=== PATIENT | female | born 1960 | race Caucasian/White ===

== ENCOUNTER → 2017-11-07 19:27 | Outpatient (CLI) | payer OTHER, SELFPAY ==
[2017-11-11 11:09] LABS: HPV Reflexed? NOT INDICATED
== END ==
PROVIDERS: Visit Provider Obstetrics & Gynecology
DX: Z12.4 Encounter for screening for malignant neoplasm of cervix (principal)
CPT/HCPCS: 88175; G0145

== ENCOUNTER → 2017-11-24 08:49 | Outpatient (CLI) | payer OTHER, SELFPAY ==
[2017-11-24 10:36] LABS: Hemoglobin A1c 6.2 % (4.2-6.3)
[2017-11-24 10:43] LABS: Anion Gap 7 (5-15); BUN 14 mg/dL (7-18); Calcium,Total 9.3 mg/dL (8.5-10.1); Chloride 106 mmol/L (98-107); Cholesterol 186 mg/dL (200); Creatinine, Serum 0.74 mg/dL (0.55-1.02); EST Glomerular Filtration Rate 86 mL/min (>60); Est Glom Filt Rate - Afr Amer 104 mL/min (>60); Glucose 111 mg/dL (74-106); High Density Lipoprotein 60 mg/dL; Sodium Level 142 mmol/L (136-145); Thyroid Stim Hormone (TSH) 1.21 uIU/mL (0.358-3.74); Triglycerides 109 mg/dL; Very Low Density Lipoprotein 22 mg/dL (5-40)
[2017-11-25 10:20] LABS: Vitamin D,25 Hydroxy 20.8 ng/mL (29.95-100.01)
== END ==
PROVIDERS: Family Provider Family Medicine; PCP Family Medicine; Visit Provider Family Medicine
DX: Z00.00 Encounter for general adult medical examination without abnormal findings (principal); E11.9 Type 2 diabetes mellitus without complications
CPT/HCPCS: 36415; 80048; 80061; 82306; 83036; 84443

== ENCOUNTER → 2017-12-01 07:39 | Outpatient (CLI) | payer OTHER, SELFPAY ==
--- NOTE | 2017-12-01 07:41 | HPBI_ITS ---
MAMMOGRAPHY - BILATERAL SCREENING REASON FOR EXAM: Female, 57 years old. Routine annual screening examination. PERTINENT HISTORY: Non-contributory. TECHNIQUE: Digital bilateral breast ifeanyi (3D mammographic acquisition) in the CC and MLO projections. 2-D mediolateral oblique (MLO) and craniocaudad (CC) views of both breasts were obtained. CAD: Full Field Digital Mammography with Computer Added Detection was performed. COMPARISON: Comparison is made with prior study dated November 29, 2016 and November 24, 2015. FINDINGS: Breast Composition: There are scattered areas of fibroglandular density. There are no dominant masses or suspicious calcifications. No other significant abnormalities are identified. There has been no significant change since the prior study. HPBI/SCREENING MAMM (CAD), BILAT IMPRESSION: Stable bilateral screening mammogram. Yearly follow-up mammogram recommended. (A) ASSESSMENT CATEGORY: BIRADS Category 1: Negative. A letter regarding these results will be sent to the patient by the facility within 30 days. Approximately 10% of breast cancers are not detected by mammography. A normal mammogram should not delay biopsy of a clinically suspicious abnormality. [id number] Electronically Signed: Nick Vee MD at 9:20 EDT Tel [phone], Service support ,
== END ==
PROVIDERS: Family Provider Family Medicine; PCP Family Medicine; Visit Provider Obstetrics & Gynecology
DX: Z12.31 Encounter for screening mammogram for malignant neoplasm of breast (principal)
CPT/HCPCS: 77063; 77067

== ENCOUNTER → 2018-05-31 16:27 | Outpatient (CLI) | payer OTHER, SELFPAY ==
--- NOTE | 2018-05-31 16:30 | RAD_ITS ---
STUDY: X-RAY - LEFT KNEE REASON FOR EXAM: Female, 58 years old. Left knee pain TECHNIQUE: 3 view(s) of the knee. COMPARISON: May 25, 2013 FINDINGS: Normal visualized distal femur. Normal visualized proximal tibia and fibula. Normal proximal tibiofibular articulation. There is no demonstrated fracture. There is moderate degenerative arthrosis of the medial femorotibial compartment with moderate joint space narrowing. There is mild degenerative arthrosis of the lateral femorotibial compartment. There is moderate degenerative arthrosis of the patellofemoral articulation. The soft tissue structures are unremarkable. RAD/Knee 3 Views IMPRESSION: Degenerative arthrosis. Electronically Signed: Toni Nolen MD at 19:50 EDT , Service support ,
== END ==
PROVIDERS: Family Provider Family Medicine; PCP Family Medicine; Visit Provider Family Medicine
DX: M25.562 Pain in left knee (principal)
CPT/HCPCS: 73562

== ENCOUNTER → 2018-08-02 08:15 | Outpatient (CLI) | payer OTHER, SELFPAY ==
[2018-08-02 10:45] LABS: Anion Gap 10 (5-15); BUN 9 mg/dL (7-18); BUN/Creat Ratio 10.8 RATIO (10-20); Calcium,Total 9.4 mg/dL (8.5-10.1); Chloride 106 mmol/L (98-107); Cholesterol 174 mg/dL (200); Creatinine, Serum 0.83 mg/dL (0.55-1.02); EST Glomerular Filtration Rate 74 mL/min (>60); Est Glom Filt Rate - Afr Amer 90 mL/min (>60); Glucose 112 mg/dL (74-106); High Density Lipoprotein 58 mg/dL; Sodium Level 143 mmol/L (136-145); Triglycerides 120 mg/dL; Very Low Density Lipoprotein 24 mg/dL (5-40)
[2018-08-02 11:01] LABS: Vitamin D,25 Hydroxy 26.6 ng/mL (29.95-100.01)
== END ==
PROVIDERS: Family Provider Family Medicine; PCP Family Medicine; Visit Provider Family Medicine
DX: I10 Essential (primary) hypertension (principal); E55.9 Vitamin D deficiency, unspecified
CPT/HCPCS: 36415; 80048; 80061; 82306

== ENCOUNTER → 2018-10-11 09:19 | Outpatient (CLI) | payer OTHER, SELFPAY ==
[2018-10-11 10:53] LABS: Absolute Lymphocyte Count 1.22 X10^3/ul (0.83-4.51); Absolute Neutrophil Count 4.5 X10^3/uL (2.0-7.7); Basophil# 0.05 X10^3/uL; Basophil% 0.8 % (0-1); Eosinophil# 0.13 X10^3/uL; Hematocrit 43.1 % (37-47); Hemoglobin 14.6 g/dl (12.0-15.0); Lymphocyte # 1.22 X10^3/ul (4.0); Lymphocyte % 19.1 % (19-41); Mean Corp Hgb Conc 33.9 g/gl (32-36); Mean Corpuscular Hgb 30.9 pg (27.0-32.0); Mean Corpuscular Volume 91.3 fL (81-99); Mean Platelet Vol. 10.2 fl (6.2-12.0); Monocyte# 0.43 X10^3/uL; Monocyte% 6.7 % (0-10); Neutrophil # 4.54 X10^3/uL (2.7-7.7); Neutrophil % 71.2 % (47-70); Platelet Count 316 K/mm3 (150-450); RBC Distribution Width CV 13.5 % (11.6-14.6); RBC Distribution Width SD 44.5 fl (35.1-43.9); Red Blood Count 4.72 M/mm3 (4.2-5.4); White Blood Count 6.4 K/mm3 (4.4-11.0)
[2018-10-11 10:54] LABS: POSITIVE COUNT NO; POSITIVE DIFFERENTIAL NO; POSITIVE MORPHOLOGY NO
[2018-10-11 11:06] LABS: ALB/GLOB Ratio 1.2 RATIO (0.9-2.4); AST(SGOT) 22 U/L (15-37); Alanine Aminotransfer ALT/SGPT 40 U/L (13-56); Albumin, Serum 4.4 g/dL (3.2-5.0); Alkaline Phosphatase 98 U/L (45-117); Anion Gap 7 (5-15); BUN 13 mg/dL (7-18); BUN/Creat Ratio 16.4 RATIO (10-20); Calcium,Total 10.1 mg/dL (8.5-10.1); Chloride 104 mmol/L (98-107); Creatinine, Serum 0.79 mg/dL (0.55-1.02); EST Glomerular Filtration Rate 79 mL/min (>60); Est Glom Filt Rate - Afr Amer 95 mL/min (>60); Globulin 3.6 g/dL (2.2-4.2); Glucose 114 mg/dL (74-106); Potassium 4.4 mmol/L (3.5-5.1); Sodium Level 139 mmol/L (136-145); Thyroid Stim Hormone (TSH) 1.25 uIU/mL (0.358-3.74)
== END ==
PROVIDERS: Family Provider Family Medicine; PCP Family Medicine; Visit Provider Family Medicine
DX: R00.0 Tachycardia, unspecified (principal); R07.9 Chest pain, unspecified
CPT/HCPCS: 36415; 80053; 84443; 84484; 85025

== ENCOUNTER → 2018-10-18 06:33 | Outpatient (CLI) | payer OTHER, SELFPAY ==
--- NOTE | 2018-10-18 09:19 | STRESSREP ---
Stress Test Report Exercise myocardial perfusion stress test. 58-year-old lady with a history of chest pain. Medications amlodipine, lisinopril, metoprolol. Resting EKG demonstrates normal sinus rhythm with rate of 92 bpm normal intervals are noted resting blood pressure 168/98 mmHg. The patient exercised according to regular Rod protocol for total duration of 7 minutes. The maximum heart rate attained was 164 bpm which was 101% maximum predicted heart rate maximum workload was 8.4 metabolic equivalents. Patient experienced mild mid stents are pending. At rest there were no ST or T wave changes noted at peak exercise upsloping ST changes only were noted with normally the criteria for ischemia. No clinical angina was noted. Myocardial perfusion protocol. 14.8 mCi of technetium 99m sestamibi was injected at rest. The patient exercised for 7 minutes at peak exercise 44.7 mCi of technetium 99m sestamibi was injected stress images were obtained stress and rest images were reconstructed and compared in the short axis vertical long and horizontal long axis. Gated images were also obtained per Perfusion SPECT analysis: Review of the stress images demonstrate normal uptake of tracer noted in all areas of the myocardium. The resting images similarly demonstrate normal uptake of tracer noted in all areas of the myocardium. No areas of reversibility are noted suggest ischemia. Gated SPECT analysis: The gated ejection fraction is noted to be 79%. Conclusion: Normal exercise myocardial perfusion stress test at a moderate workload. Atypical chest pain noted. Hypertensive response to exercise noted. Preserved ejection fraction.
== END ==
PROVIDERS: Family Provider Family Medicine; PCP Family Medicine; Referring Provider Family Medicine; Visit Provider Family Medicine
DX: R07.9 Chest pain, unspecified (principal)
CPT/HCPCS: 78452; 93017; A9500; A4216

== ENCOUNTER → 2018-10-20 14:03 | Outpatient (CLI) | payer OTHER, SELFPAY ==
--- NOTE | 2018-10-20 14:06 | ECHOCS_ITS ---
Reason For Study: Chest Pain Procedure This was a 2D Doppler, Color Flow transthoracic echocardiogram. Exam performed in department. Left Ventricle Normal LV size. Left ventricular systolic function is normal. The estimated ejection fraction is 60 %. Stage 2 diastolic dysfunction. No regional wall motion abnormalities noted. Right Ventricle Normal RV size. Normal systolic function. Atria Normal left atrium. Normal right atrium. Mitral Valve Mild diffuse mitral valve thickening. Mild (1+) eccentric mitral valve insufficiency. Tricuspid Valve Normal tricuspid valve. Mild (1+) tricuspid valve insufficiency. Pulmonary artery systolic pressure is 33 mmHg. Aortic Valve The aortic valve is not well visualized. Pulmonic Valve Normal pulmonic valve. Great Vessels Normal aortic root. The pulmonary artery is normal size. Normal inferior vena cava. Pericardium/Pleural No pericardial effusion. Medication Definity0.2ml given slow IV push to enhance endocardial definition. MMode/2D Measurements & Calculations LVIDd: 4.6 cm IVSd: 1.5 cm Ao root diam: 2.5 cm LVIDs: 2.8 cm LVPWd: 1.0 cm RVDd: 4.2 cm FS: 38.7 % LAV(MOD-bp): 58.0 ml LVAd ap4: 36.0 cm2 SV(MOD-sp4): 86.2 ml LAV(MOD-bp) Indexed: 25.5 ml/m2 EDV(MOD-sp4): 124.8 ml LAV(MOD-sp2): 63.2 ml EDV(sp4-el): 131.0 ml LAV(MOD-sp4): 52.0 ml LVAs ap4: 17.7 cm2 ESV(MOD-sp4): 38.7 ml ESV(sp4-el): 40.0 ml EF(MOD-sp4): 69.0 % EF(sp4-el): 69.5 % SV(sp4-el): 91.0 ml LA A4 area: 19.0 cm2 LA dimension(2D): 3.8 cm RA A4 area: 14.1 cm2 Doppler Measurements & Calculations MV E max joshua: 99.7 cm/sec Lat Peak E' Joshua: 16.1 cm/sec Med Peak E' Joshua: 8.3 cm/sec MV A max joshua: 70.2 cm/sec E/E' lat: 6.2 E/E' med: 12.0 MV E/A: 1.4 Ao V2 max: 157.9 cm/sec LV V1 max: 135.9 cm/sec PA V2 max: 90.2 cm/sec Ao max P.0 mmHg LV V1 max P.4 mmHg Ao V2 mean: 110.1 cm/sec Ao mean P.4 mmHg Ao V2 VTI: 34.4 cm TR max joshua: 264.5 cm/sec TR max P.0 mmHg Interpretation Summary Normal LV size. Left ventricular systolic function is normal. The estimated ejection fraction is 60 %. Stage 2 diastolic dysfunction. Mild (1+) eccentric mitral valve insufficiency. Mild (1+) tricuspid valve insufficiency. Contrast injection was performed. Ordering Physician: Jeffery Godinez Referring Physician: Jeffery Godinez Performed By: Dorene Andino RDCS, RVT
== END ==
PROVIDERS: Family Provider Family Medicine; PCP Family Medicine; Referring Provider Family Medicine; Visit Provider Family Medicine
DX: R07.9 Chest pain, unspecified (principal)
CPT/HCPCS: 93306; Q9957; A4216; C8929

== ENCOUNTER → 2018-12-22 08:36 | Outpatient (CLI) | payer OTHER, SELFPAY ==
[2018-12-22 10:48] LABS: Anion Gap 6 (5-15); BUN 14 mg/dL (7-18); BUN/Creat Ratio 18.1 RATIO (10-20); Calcium,Total 9.7 mg/dL (8.5-10.1); Chloride 105 mmol/L (98-107); Cholesterol 188 mg/dL (200); Creatinine, Serum 0.78 mg/dL (0.55-1.02); EST Glomerular Filtration Rate 81 mL/min (>60); Est Glom Filt Rate - Afr Amer 98 mL/min (>60); Glucose 114 mg/dL (74-106); High Density Lipoprotein 57 mg/dL; Potassium 4.5 mmol/L (3.5-5.1); Sodium Level 141 mmol/L (136-145); Triglycerides 110 mg/dL; Very Low Density Lipoprotein 22 mg/dL (5-40)
== END ==
PROVIDERS: Family Provider Family Medicine; PCP Family Medicine; Referring Provider Family Medicine; Visit Provider Family Medicine
DX: I10 Essential (primary) hypertension (principal)
CPT/HCPCS: 36415; 80048; 80061

== ENCOUNTER → 2018-12-27 07:09 | Outpatient (CLI) | payer OTHER, SELFPAY ==
--- NOTE | 2018-12-27 07:11 | BI_ITS ---
MAMMOGRAPHY - BILATERAL SCREENING REASON FOR EXAM: Female, 58 years old. Routine annual screening examination. PERTINENT HISTORY: Non-contributory. TECHNIQUE: Digital bilateral breast ifeanyi (3D mammographic acquisition) in the CC and MLO projections. 2-D mediolateral oblique (MLO) and craniocaudad (CC) views of both breasts were obtained. CAD: Full Field Digital Mammography with Computer Added Detection was performed. COMPARISON: Comparison is made with prior study dated December 01, 2017 and November 29, 2016. FINDINGS: Breast Composition: There are scattered areas of fibroglandular density. There are no dominant masses or suspicious calcifications. No other significant abnormalities are identified. There has been no significant change since the prior study. BI/SCREENING MAMM (CAD), BILAT IMPRESSION: Stable bilateral screening mammogram. Yearly follow-up mammogram recommended. (A) ASSESSMENT CATEGORY: BIRADS Category 1: Negative. A letter regarding these results will be sent to the patient by the facility within 30 days. Approximately 10% of breast cancers are not detected by mammography. A normal mammogram should not delay biopsy of a clinically suspicious abnormality. [id number] Electronically Signed: Nick Vee, at 9:27 EDT , Service support ,
== END ==
PROVIDERS: Family Provider Family Medicine; PCP Family Medicine; Referring Provider Obstetrics & Gynecology; Visit Provider Obstetrics & Gynecology
DX: Z12.31 Encounter for screening mammogram for malignant neoplasm of breast (principal)
CPT/HCPCS: 77063; 77067

== ENCOUNTER → 2019-01-16 17:37 | Outpatient (CLI) | payer OTHER, SELFPAY | PROVIDERS: Family Provider Family Medicine; PCP Family Medicine; Referring Provider Nurse Practitioner Adult Health; Visit Provider Nurse Practitioner Adult Health | DX: R30.0 Dysuria (principal) | CPT/HCPCS: 87086; 87088; 87186 ==

== ENCOUNTER → 2019-01-23 16:59 | Outpatient (CLI) | payer OTHER, SELFPAY ==
--- NOTE | 2019-01-23 17:05 | US_ITS ---
STUDY: RENAL ULTRASOUND - COMPLETE REASON FOR EXAM: Female, 58 years old. Urinary tract infection TECHNIQUE: Ultrasound evaluation of the kidneys was performed with real-time and static lang-scale imaging. COMPARISON: None. FINDINGS: RIGHT KIDNEY: Normal location of the right kidney, which is normal in size. The right kidney measures 11.6 cm. There is a normal cortex of the right kidney. The renal cortex measures 1.2 cm. There is no right renal mass or cyst. There are no right renal calculi. There is no right hydronephrosis. DISTAL RIGHT URETER: There is non-visualization of the distal right ureter. There is no demonstrated right ureterovesical junction calculus. There is a visualized right ureteral jet. LEFT KIDNEY: Normal location of the left kidney, which is normal in size. The left kidney measures 12.8 cm. There is a normal cortex of the left kidney. The renal cortex measures 1.3 cm. There is no left renal mass or cyst. There are no left renal calculi. There is mild hydronephrosis of the left kidney. DISTAL LEFT URETER: There is non-visualization of the distal left ureter. There is no demonstrated left ureterovesical junction calculus. There is a visualized left ureteral jet. BLADDER: The distended urinary bladder has a volume of 399 ml. The empty urinary bladder has a volume of 17 ml. There is a normal wall thickness of the distended urinary bladder. There is no demonstrated mass within the urinary bladder. There are no demonstrated bladder calculi. US/Kidney and Bladder IMPRESSION: Mild left hydronephrosis. Small postvoid residual in the bladder. Electronically Signed: Toni Nolen MD at 19:49 EDT , Service support ,
== END ==
PROVIDERS: Family Provider Family Medicine; PCP Family Medicine; Referring Provider Urology; Visit Provider Urology
DX: N39.0 Urinary tract infection, site not specified (principal)
CPT/HCPCS: 76770

== ENCOUNTER → 2019-02-08 17:04 | Outpatient (CLI) | payer OTHER, SELFPAY ==
--- NOTE | 2019-02-08 17:06 | CT_ITS ---
STUDY: CT ABDOMEN AND PELVIS WITH AND WITHOUT CONTRAST REASON FOR EXAM: Female, 58 years old. Hydronephrosis. RADIATION DOSAGE (If Supplied By Facility): CTDIvol = ( 23.02 ) mGy, DLP = ( 2053.60 ) mGycm TECHNIQUE: Transaxial images were obtained from the dome of the diaphragm to the symphysis pubis without oral contrast. 100ML IV Isovue 300 was administered. Sagittal and coronal images were reconstructed. Individualized dose optimization techniques were used for this CT. COMPARISON: Renal ultrasound, January 23, 2019. FINDINGS: The visualized lung bases are unremarkable. The visualized portions of the heart are within normal limits. There is hepatomegaly with diffuse hepatic enlargement. There is a large laminated gallstone within an otherwise normal gallbladder. No biliary ductal dilatation. Normal spleen. Normal pancreas. Normal bilateral adrenal glands. Normal right kidney. Normal left kidney. Normal visualized bilateral ureters. Stomach is nondistended but grossly normal. Normal small intestine. Normal colon. The appendix is visualized and appears normal. Normal abdominal aorta. Normal inferior vena cava. Normal retroperitoneum. Normal urinary bladder. Normal uterus. There is no adnexal mass. There is no pelvic lymphadenopathy. No free air or free fluid is seen within the peritoneal cavity. There is a small umbilical hernia of omental fat. Bowel naqvi otherwise unremarkable. There are diffuse degenerative changes of the visualized lumbar spine. CT/CT Abd/Pelvis W/WO Contrast IMPRESSION: 1. No evidence of renal, ureteral or urinary bladder abnormality. 2. Mild hepatomegaly. 3. Gallstone without acute cholecystitis. 4. Mild degenerative changes of the lumbar spine. Electronically Signed: Forest Romero DO at 17:57 EDT Tel [phone], Service support ,
== END ==
PROVIDERS: Family Provider Family Medicine; PCP Family Medicine; Referring Provider Urology; Visit Provider Urology
DX: N13.30 Unspecified hydronephrosis (principal)
CPT/HCPCS: 74178; Q9967

== ENCOUNTER 2019-04-09 07:00 | Day surgery (SDC) | payer OTHER, SELFPAY ==
[2019-04-09] VITALS (8 sets, daily range): BP systolic 95–115; BP diastolic 65–74; PULSE 58–87; RESP 16–18; TEMP 36.1–36.6; O2SAT 94–99; BMI 40.1
--- NOTE | 2019-04-09 | COLBX_PTH ---
PATIENT: FALGUNI OSBORNE LOC: EN U#:[id number] AGE/SX: 59/F ROOM: RE04/09/[address]: Dr. Cassie Yuan MD : 1960 BED: DIS: 04/09/2019 SPEC #: [id number] RECD: 04/09/19 13:35 STATUS: ALYSON RETalita #: [id number] JOE: 04/09/19 00:[address]: Cassie Yuan DEPT: SURGICAL PATHOLOGY RECD BY: Juanito Waldron ENTERED: 04/09/19 13:35 SP TYPE: COLON BX OTHR DR: Dr. Jeffery Godinez MD Tissues: Descending colon Procedures: Surgery Specimen Level IV HEADER OPERATION: Colonoscopy - open access (MAC) PRE-OP DIAGNOSIS: Screening TISSUE SUBMITTED: Descending colon biopsy MICROSCOPIC DIAGNOSIS Descending colon, biopsy: Fragments of tubular adenoma. AM:karely 04/10/19 MICROSCOPIC DESCRIPTION Slides are reviewed. GROSS DESCRIPTION Received in fixative is one container labeled with the patient's name and designated descending colon biopsy. The specimen consists of two irregular fragments of light epstein soft tissue that in aggregate measure 0.6 x 0.4 x 0.1 cm. The specimen is totally submitted in one cassette. / SJ:rios 04/09/19 TC: 5 CPT: 39186
--- NOTE | 2019-04-09 07:38 | HP.PCM_ITS ---
History of Present Illness Date of Admission: 04/09/19 The patient is a 59 year old F presents for screening colonoscopy. Patient denies having previous colonoscopy. Denies any family history of colon cancer. Patient has bowel movements about every other day is plan to start taking a stool softener is unsure if she takes a fiber in her diet. Patient denies any blood in her stool. Denies any abdominal pain/nausea/vomiting. Patient does have reflux which is controlled with medication. Past Medical/Surgical History - Planned Operation Planned Operative Procedure/s: cscope open access Date of Operative Procedure: 04/09/19 Permit Signed: No S.O.S: No Is This Patient Having a Total Joint: No - Previous Hospitalizations/Surgeries HX Hospitalizations: No HX of Surgeries: mole removed from arm. wisdom teeth Any Problems With Anesthesia: No You/Your Family Experience Fever (Hyperthermia) With Anes: No Cholinesterase deficiency: No - Cardiovascular Hx Chest Pain within Last 2 months: No Hx of Irregular Heartbeat and/or Afib: No Hx Hypertension: Yes - controlled with meds Hx Internal Defibrillator: No Hx Pacemaker: No Hx Cardiac Catheterization: No Hx Cardiac Surgery/Stents/Etc.: No Hx Stress Test: Yes - 2019 and echo 2019 HX Edema: Yes - ankles Hx Pain in Legs when Walking/Leg Cramps: Yes - knee pain - Respiratory Chronic Cough: No HX of Shortness of Breath: No Hoarseness: No Hx Chronic Obstructive Pulmonary Disease (COPD): No Hx Asthma: No Hx Emphysema: No Hx Sleep Apnea: No Hx Oxygen Use at Home: No Hx Respiratory Tract Infection/Cold (presently): No Do You Snore Loudly (louder than talking or can be heard): Yes Do You Often Feel Tired/ Fatigued/ Sleepy Dring Daytime?: No Has Anyone Observed You Stop Breathing During Sleep?: No Result (for STOP score): Positive Hx Smoking: No Smoking Status: Never smoker - Gastrointestinal Hx Gastroesophageal Reflux: Yes Controlled With Meds: Yes Hx Gastrointestinal Disorders: No Hx Gastrointestinal Bleed: No Hx Ulcer: No Hx Hiatal Hernia: No Difficulty Chewing/Swallowing: No Recent Onset of Swallowing Problems: No Special diet followed at home: No Hx Unplanned Weight Loss of 20#: No HX Unplanned Weight Gain of 20#: No - Neurological Hx Seizures: No HX Syncope/Blackout Spells/Unconsciousness: No Hx CVA/Stroke: No Hx Transient Ischemic Attacks (TIA): No Hx Multiple Sclerosis: No Hx Parkinson's Disease: No Hx Head/Neck Injury: No Hx Headaches: No Hx Back Injury/Pain: No Recent Onset of Speech Difficulty: No Restless Legs: No Does patient have nerve stimulator: No Patient instructed to have device shut off: No Rep notified?: No - Blood Disorder Hx Leukemia: No Bleeding Tendencies: No Hx Deep Vein Thrombosis: No Hx High Cholesterol: No Blood Transmitted Disease: No Hx Hepatitis: No Hx Cirrhosis: No Hx Anemia: No Hx Blood Disorders: No - Reproduction : No Is Patient Lactating: No Hx Hysterectomy: No Hx Tubal Ligation: No Are You Post Menopause: Yes - Genitourinary Hx Renal Disease: No - being treated for uti currently - Musculoskeletal Hx Arthritis: Yes Hx Rheumatoid Arthritis: No Hx Gout: No Recent Onset of an Orthopedic Problem: No - Endocrine Hx Diabetes: No - borderline. Thyroid Disease: No Hx Steroid Therapy: No - Psycho/Social Hx Substance Use: No Hx Alcohol Use: Yes - social Hx Anxiety: No Hx Depression: No Mental Illness: No Hx Dementia: No - Miscellaneous Hx Cancer: No Recent Exposure to Contagious Disease: No Active MRSA: No Hx of C-Diff: No Any Loose Teeth: No Allergies Penicillins Allergy (Verified 04/05/19 10:43) Unknown sulfamethoxazole [From Bactrim] Allergy (Verified 04/05/19 10:43) muscle pain trimethoprim [From Bactrim] Allergy (Verified 04/05/19 10:43) muscle pain - Discharge Is Pt Admitted From a [facility], or a Long-Term: No Who Could Help: family After D/C, Where Do you Plan to Go: Return Home - Physical Exam General: Alert, Oriented x3, Cooperative, No apparent distress HEENT: Atraumatic Cardiovascular: Regular rate Abdomen: Soft, Non Tender, Non-Distended, Obese, - - No peritoneal signs Extremities: No clubbing, No cyanosis, No edema Neurological: Cranial nerves II-XII grossly intact Psych/Mental Status: Normal Affect Vital Signs Temp Pulse Resp BP Pulse Ox 97.8 F 87 16 115/74 99 04/09/19 07:17 04/09/19 07:17 04/09/19 07:17 04/09/19 07:17 04/09/19 07:17 Oxygen Delivery Method Room Air Weight: 256 lb 9.889 oz Body Mass Index (BMI) 40.1 Assessment/Plan 59-year-old female for screening for colon cancer Surgery Risks - Colonoscopy I discussed with the patient the risks of the procedure: Yes Risks Include but are not Limited To: Risks include but are not limited to: Bleeding, perforation requiring further surgery, inability to complete colonoscopy requiring barium enema. Patient had no further questions this time
--- NOTE | 2019-04-09 08:30 | OP.ENDO_ITS ---
04/09/2019 Jeffery Godinez MD [address] [id number] Re : Colonoscopy procedure for Wandy Padilla Dear Dr. Godinez This procedure was performed on Tuesday, April 09, 2019. My impressions and recommendations are as follows: Impressions : - Diverticulosis in the sigmoid colon. - One less than 5 mm polyp in the descending colon, removed with a cold biopsy forceps. Resected and retrieved. - The examination was otherwise normal on direct and retroflexion views. Recommendations : - Discharge patient to home. - High fiber diet. - Continue present medications. - Await pathology results. - Repeat colonoscopy in 3 - 5 years for surveillance based on pathology results. My findings are described in the full procedure note, which is enclosed. If I can be of further assistance, please feel free to contact me at Doctor phone number(s): , Work: . Sincerely, MD Cassie Parsons MD 04/09/2019 8:30:06 AM This report has been signed electronically.
== END 2019-04-09 09:14 | disposition home or self-care (01) ==
LOC: EN 07:04 → AC 07:04
PROVIDERS: Family Provider Family Medicine; PCP Family Medicine; Referring Provider Family Medicine; Visit Provider Surgery
PROC: 0DJD8ZZ Inspection of Lower Intestinal Tract, Via Natural or Artificial Opening Endoscopic (ICD-10-PCS; CPT 45378; principal; 2019-04-09 07:55)
DX: Z12.11 Encounter for screening for malignant neoplasm of colon (principal); D12.4 Benign neoplasm of descending colon; K57.30 Diverticulosis of large intestine without perforation or abscess without bleeding; N39.0 Urinary tract infection, site not specified; I10 Essential (primary) hypertension; K21.9 Gastro-esophageal reflux disease without esophagitis; Z79.82 Long term (current) use of aspirin; Z79.899 Other long term (current) drug therapy; Z78.0 Asymptomatic menopausal state; Z88.0 Allergy status to penicillin; Z88.2 Allergy status to sulfonamides; Z88.1 Allergy status to other antibiotic agents
CPT/HCPCS: 45380; 88305; J7120; J2405

== ENCOUNTER → 2019-06-25 09:45 | Outpatient (CLI) | payer OTHER, SELFPAY ==
[2019-04-09 07:17] VITALS: BMI 40.1
--- NOTE | 2019-06-25 09:47 | CDU_ITS ---
Reason For Study: Bruit Rt. Velocities/BP Lt. Velocities/BP Prox CCA 90.4/18.6 cm/sec. Prox CCA 91.3/20 cm/sec. Mid CCA 96.9/22.6 cm/sec. Mid CCA 79/20 cm/sec. Dist CCA 70.8/17.3 cm/sec. Dist CCA 92.5/32.3 cm/sec. Prox ICA 45.4/13.5 cm/sec. Prox ICA 45.6/14.5 cm/sec. Mid ICA 67.3/22.3 cm/sec. Mid ICA 82.7/30 cm/sec. Dist ICA 68.5/24.5 cm/sec. Dist ICA 79.4/32.2 cm/sec. Rt. ICA/CCA = 0.8. Lt. ICA/CCA = 0.9. Prox ECA 62.9/9.1 cm/sec. Prox ECA 79/10.2 cm/sec. Rt. Vert. 47/16.2 cm/sec. Lt. Vert. 50.9/14.6 cm/sec. Right Extracranial There is intimal thickening but no significant atherosclerotic plaque noted in the right common carotid artery. There is intimal thickening but no significant atherosclerotic plaque noted in the right internal carotid artery. There is no significant atherosclerotic plaque noted in the right external carotid artery. Antegrade flow is noted in the right vertebral artery. Left Extracranial There is intimal thickening but no significant atherosclerotic plaque noted in the left common carotid artery. Nonvascularized structure noted in the thyroid tissue measuring about 0.76 x 0.92 x 1.67 cm. There is intimal thickening but no significant atherosclerotic plaque noted in the left internal carotid artery. There is no significant atherosclerotic plaque noted in the left external carotid artery. Antegrade flow is noted in the left vertebral artery. Procedure Carotid Duplex [id number]. Exam performed in department. Interpretation Summary No significant atherosclerotic plaque or stenosis noted in the internal carotid arteries bilaterally. Flow within the vertebral arteries is antegrade bilaterally. A non-vascular structure is noted in the left thyroid lobe, measuring 0.76 cm x 0.92 cm x 1.67 cm. Clinical correlation is advised. Ordering Physician: Nayana Avalos Referring Physician: Jeffery Godinez Performed By: Perlita Sousa RVT
== END ==
PROVIDERS: Family Provider Family Medicine; PCP Family Medicine; Referring Provider Nurse Practitioner Adult Health; Visit Provider Nurse Practitioner Adult Health
DX: R09.89 Other specified symptoms and signs involving the circulatory and respiratory systems (principal)
CPT/HCPCS: 93880

== ENCOUNTER → 2019-07-13 12:32 | Outpatient (CLI) | payer OTHER, SELFPAY ==
[2019-04-09 07:17] VITALS: BMI 40.1
--- NOTE | 2019-07-13 12:33 | US_ITS ---
STUDY: THYROID ULTRASOUND REASON FOR EXAM: Female, 59 years old. Thyroid nodule incidentally detected on carotid duplex ultrasound TECHNIQUE: Ultrasound evaluation of the thyroid was performed with real-time and static byrnes-scale imaging. COMPARISON: None. FINDINGS: RIGHT LOBE: The right lobe of the thyroid gland measures 4.2 x 1.9 x 1.7 cm. There is a homogeneous echotexture. There are no demonstrated solid, cystic or complex lesions. LEFT LOBE: The left lobe of the thyroid gland measures 4.6 x 1.7 x 1.6 cm. There is a homogeneous echotexture. There are 2 hypoechoic nodules of the left thyroid lobe abutting one another with coarse calcifications. The nodules measure 9 x 11 x 8 and 5 x 5 x 4 mm, respectively. Smooth margins but with mild vascular flow. ISTHMUS: The isthmus measures 3 mm. The regional lymph nodes are normal. US/Thyroid IMPRESSION: 1. Hypoechoic nodules of the left thyroid lobe (TiRads 4). FNA recommended. Electronically Signed: Abhishek Avina MD ([place]) at 16:40 EST , Service support ,
== END ==
PROVIDERS: Family Provider Family Medicine; PCP Family Medicine; Referring Provider Family Medicine; Visit Provider Family Medicine
DX: E04.1 Nontoxic single thyroid nodule (principal)
CPT/HCPCS: 76536

== ENCOUNTER → 2019-07-20 09:21 | Outpatient (CLI) | payer OTHER, SELFPAY ==
[2019-07-20 08:38] VITALS: BMI 42.0
[2019-07-20 10:49] LABS: Anion Gap 9 (5-15); BUN 15 mg/dL (7-18); BUN/Creat Ratio 20.2 RATIO (10-20); Calcium,Total 10.3 mg/dL (8.5-10.1); Chloride 103 mmol/L (98-107); Creatinine, Serum 0.74 mg/dL (0.55-1.02); EST Glomerular Filtration Rate 85 mL/min (>60); Est Glom Filt Rate - Afr Amer 103 mL/min (>60); Glucose 101 mg/dL (74-106); Sodium Level 141 mmol/L (136-145)
== END ==
PROVIDERS: Family Provider Family Medicine; PCP Family Medicine; Referring Provider Family Medicine; Visit Provider Family Medicine
DX: R55 Syncope and collapse (principal)
CPT/HCPCS: 36415; 80048

== ENCOUNTER → 2019-08-02 11:12 | Outpatient (CLI) | payer OTHER, SELFPAY ==
--- NOTE | 2019-08-02 07:30 | ASPS_PTH ---
PATIENT: FALGUNI [facility]BORNE [facility] U[facility][id number] AGE/SX: 65/F ROOM: RE08/02/[address]: Dr. Bruno Aaron MD : 1960 BED: DIS: SPEC #: [id number] RECD: 08/02/19 11:10 STATUS: ALYSON PREMA #: [id number] JOE: 08/02/19 07:[address]: Bruno Aaron DEPT: CYTOLOGY RECD BY: Dru Traore ENTERED: 08/02/19 11:20 SP TYPE: ASPIRATION OTHR DR: Dr. Jeffery Godinez MD Tissues: Thyroid gland, NOS Procedures: Special Stain Group II Cytology Other HEADER OPERATION: Left thyroid FNA PRE-OP DIAGNOSIS: Left thyroid nodules TISSUE SUBMITTED: Left thyroid slides x8 DIAGNOSIS CYTOLOGY Left thyroid nodule, FNA (smears): Consistent with benign follicular nodule. Adequate for evaluation. See comment. KAYLIE:rios 08/03/19 COMMENT Correlation with clinical, radiologic findings and appropriate follow up are necessary. CYTOLOGY STUDY Slides are reviewed. CYTOLOGY GROSS Received are eight smears labeled with the patient's name and designated per the requisition as left thyroid. Submitted for staining. / rios 08/02/19 TC:5 CPT: 58901
[2019-08-02 07:33] VITALS: BMI 42.0
== END ==
PROVIDERS: Family Provider Family Medicine; PCP Family Medicine; Referring Provider Surgery; Visit Provider Surgery
DX: E04.1 Nontoxic single thyroid nodule (principal)
CPT/HCPCS: 88161; 88313

== ENCOUNTER → 2019-09-03 08:24 | Outpatient (CLI) | payer OTHER, SELFPAY ==
[2019-08-02 07:33] VITALS: BMI 42.0
--- NOTE | 2019-09-03 08:40 | RAD_ITS ---
STUDY: X-RAY - RIGHT KNEE REASON FOR EXAM: Female, 59 years old. CHRONIC PAIN, NKI TECHNIQUE: 4 view(s) of the knee. COMPARISON: None. FINDINGS: Serpiginous sclerotic lesion within the distal femoral shaft consistent with the old bone infarct or enchondroma. Diffuse osteopenia with mild osteophyte of the distal femur and proximal tibia. Otherwise normal visualized proximal tibia and fibula. There is arthrosis of the proximal tibiofibular articulation. There is no demonstrated fracture. There is mild degenerative arthrosis of the medial femorotibial compartment. There is minimal degenerative arthrosis of the lateral femorotibial compartment. There is mild degenerative arthrosis of the patellofemoral articulation. Mild joint effusion. The soft tissue structures are unremarkable. RAD/Knee 4 or More Views IMPRESSION: Degenerative disease as described above. 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 No acute fracture or subluxation. Electronically Signed: Catie Carrillo MD at 0:53 EST , Service support ,
== END ==
LOC: MTRAD 08:27 → HPRAD 08:29
PROVIDERS: Family Provider Family Medicine; PCP Family Medicine; Referring Provider Family Medicine; Visit Provider Family Medicine
DX: M25.569 Pain in unspecified knee (principal)
CPT/HCPCS: 73564

== ENCOUNTER → 2019-09-15 11:19 | Outpatient (CLI) | payer OTHER, SELFPAY ==
[2019-08-02 07:33] VITALS: BMI 42.0
[2019-09-15 11:54] LABS: Anion Gap 5 (5-15); BUN 16 mg/dL (7-18); BUN/Creat Ratio 18.3 RATIO (10-20); Chloride 102 mmol/L (98-107); Creatinine, Serum 0.88 mg/dL (0.55-1.02); EST Glomerular Filtration Rate 70 mL/min (>60); Est Glom Filt Rate - Afr Amer 85 mL/min (>60); Glucose 109 mg/dL (74-106); Potassium 4.1 mmol/L (3.5-5.1); Sodium Level 137 mmol/L (136-145)
== END ==
PROVIDERS: Family Provider Family Medicine; PCP Family Medicine; Referring Provider Family Medicine; Visit Provider Family Medicine
DX: I10 Essential (primary) hypertension (principal)
CPT/HCPCS: 36415; 80048

== ENCOUNTER → 2020-01-29 07:36 | Outpatient (CLI) | payer OTHER, SELFPAY ==
[2019-08-02 07:33] VITALS: BMI 42.0
--- NOTE | 2020-01-29 07:38 | BI_ITS ---
MAMMOGRAPHY - BILATERAL SCREENING REASON FOR EXAM: Female, 59 years old. Routine annual screening examination. PERTINENT HISTORY: Non-contributory. TECHNIQUE: Digital bilateral breast joseph (3D mammographic acquisition) in the CC and MLO projections. 2-D mediolateral oblique (MLO) and craniocaudad (CC) views of both breasts were obtained. CAD: Full Field Digital Mammography with Computer Added Detection was performed. COMPARISON: Comparison is made with prior examination dated December 27, 2018 and December 01, 2017. FINDINGS: Breast Composition: There are scattered areas of fibroglandular density. There are no dominant masses or suspicious calcifications. No other significant abnormalities are identified. There has been no significant change since the prior study. BI/SCREEN MAMM (CAD) W/JOSEPH BILAT IMPRESSION: Stable bilateral screening mammogram. Yearly follow-up mammogram recommended. (A) ASSESSMENT CATEGORY: BIRADS Category 1: Negative. A letter regarding these results will be sent to the patient by the facility within 30 days. Approximately 10% of breast cancers are not detected by mammography. A normal mammogram should not delay biopsy of a clinically suspicious abnormality. [id number] Electronically Signed: Nick Vee, at 8:46 EDT , Service support ,
== END ==
PROVIDERS: PCP Family Medicine; Referring Provider Obstetrics & Gynecology; Visit Provider Obstetrics & Gynecology
DX: Z12.31 Encounter for screening mammogram for malignant neoplasm of breast (principal)
CPT/HCPCS: 77063; 77067

== ENCOUNTER → 2020-02-08 08:28 | Outpatient (CLI) | payer OTHER, SELFPAY ==
[2019-08-02 07:33] VITALS: BMI 42.0
[2020-02-08 13:04] LABS: Anion Gap 8 (5-15); BUN 12 mg/dL (7-18); BUN/Creat Ratio 14.2 RATIO (10-20); Calcium,Total 9.8 mg/dL (8.5-10.1); Chloride 103 mmol/L (98-107); Cholesterol 193 mg/dL (200); Creatinine, Serum 0.84 mg/dL (0.55-1.02); EST Glomerular Filtration Rate 73 mL/min (>60); Est Glom Filt Rate - Afr Amer 88 mL/min (>60); Glucose 116 mg/dL (74-106); High Density Lipoprotein 54 mg/dL; Sodium Level 140 mmol/L (136-145); Triglycerides 114 mg/dL; Very Low Density Lipoprotein 23 mg/dL (5-40)
== END ==
PROVIDERS: PCP Family Medicine; Referring Provider Family Medicine; Visit Provider Family Medicine
DX: Z00.00 Encounter for general adult medical examination without abnormal findings (principal)
CPT/HCPCS: 36415; 80048; 80061

== ENCOUNTER → 2020-07-17 07:39 | Outpatient (CLI) | payer OTHER, SELFPAY ==
[2019-08-02 07:33] VITALS: BMI 42.0
--- NOTE | 2020-07-17 07:40 | US_ITS ---
STUDY: THYROID ULTRASOUND REASON FOR EXAM: Female, 60 years old. Non toxic multinodular goiter TECHNIQUE: Ultrasound evaluation of the thyroid was performed with real-time and static byrnes-scale imaging. COMPARISON: Comparison is made with prior study dated 07/13/2019. FINDINGS: RIGHT LOBE: The right lobe of the thyroid gland measures 4.5 cm x 1.5 cm x 1.3 cm. There is a homogeneous echotexture. There is a 2 mm x 2 mm x 1 mm cyst in the mid pole of the right lobe. LEFT LOBE: The left lobe of the thyroid gland measures 5 cm x 1.6 cm x 1.6 cm. There is a homogeneous echotexture. Once again, there are 2 hypoechoic solid nodules in the left lobe of the thyroid. The largest measures 1.3 cm x 1.1 cm x 0.9 cm. This is essentially unchanged. Coarse calcification is seen within the smaller nodule. ISTHMUS: The isthmus measures 2.4 mm. The regional lymph nodes are normal. US/Thyroid IMPRESSION: Stable thyroid ultrasound. Electronically Signed: Nick Vee, at 13:16 EST , Service support ,
== END ==
PROVIDERS: PCP Family Medicine; Referring Provider Surgery; Visit Provider Surgery
DX: E04.2 Nontoxic multinodular goiter (principal)
CPT/HCPCS: 76536

== ENCOUNTER → 2020-08-05 08:30 | Outpatient (CLI) | payer OTHER, SELFPAY ==
[2019-08-02 07:33] VITALS: BMI 42.0
[2020-08-05 10:33] LABS: Anion Gap 5 (5-15); BUN 15 mg/dL (7-18); BUN/Creat Ratio 15.7 RATIO (10-20); Calcium,Total 9.6 mg/dL (8.5-10.1); Chloride 104 mmol/L (98-107); Cholesterol 194 mg/dL (200); Creatinine, Serum 0.96 mg/dL (0.55-1.02); EST Glomerular Filtration Rate 63 mL/min (>60); Est Glom Filt Rate - Afr Amer 76 mL/min (>60); Glucose 124 mg/dL (74-106); High Density Lipoprotein 53 mg/dL; Potassium 4.1 mmol/L (3.5-5.1); Sodium Level 138 mmol/L (136-145); Triglycerides 118 mg/dL; Very Low Density Lipoprotein 24 mg/dL (5-40)
== END ==
PROVIDERS: PCP Family Medicine; Referring Provider Family Medicine; Visit Provider Family Medicine
DX: I10 Essential (primary) hypertension (principal)
CPT/HCPCS: 36415; 80048; 80061

== ENCOUNTER → 2021-01-30 07:06 | Outpatient (CLI) | payer OTHER, SELFPAY ==
[2019-08-02 07:33] VITALS: BMI 42.0
--- NOTE | 2021-01-30 07:24 | BI_ITS ---
MAMMOGRAPHY - BILATERAL SCREENING 3-D TOMOSYNTHESIS REASON FOR EXAM: Female, 60 years old. Routine screening PERTINENT HISTORY: No significant family history. TECHNIQUE: 2-D mammograms and 3-D Tomosynthesis of the breast (s) were performed. CAD was performed. COMPARISON: 01/29/2020 FINDINGS: The breast composition is almost entirely fat. Scattered benign calcifications are seen. No dense spiculated masses or suspicious microcalcifications are identified. No architectural distortion is identified. There is no skin thickening or retraction. There has been no significant change since the prior study. BI/SCRN MAMM (CAD)W/JOSEPH BILAT IMPRESSION: No mammographic signs of malignancy. Routine yearly mammograms recommended. ASSESSMENT CATEGORY: BIRADS Category 1: Negative. A letter regarding these results will be sent to the patient by the facility within 30 days. FOLLOW UP RECOMMENDATION: Yearly follow up mammogram recommended. (A) Approximately 10% of breast cancers are not detected by mammography. A normal mammogram should not delay biopsy of a clinically suspicious abnormality. Electronically Signed: Osorio De La Cruz MD at 8:54 EDT , Service support ,
[2021-01-30 10:43] LABS: Anion Gap 6 (5-15); BUN 17 mg/dL (7-18); BUN/Creat Ratio 19.1 RATIO (10-20); Calcium,Total 9.7 mg/dL (8.5-10.1); Chloride 103 mmol/L (98-107); Cholesterol 192 mg/dL (200); Creatinine, Serum 0.89 mg/dL (0.55-1.02); EST Glomerular Filtration Rate 68 mL/min (>60); Est Glom Filt Rate - Afr Amer 83 mL/min (>60); Glucose 130 mg/dL (74-106); High Density Lipoprotein 56 mg/dL; Sodium Level 137 mmol/L (136-145); Triglycerides 112 mg/dL; Very Low Density Lipoprotein 22 mg/dL (5-40)
== END ==
PROVIDERS: PCP Family Medicine; Referring Provider Student in an Organized Health Care Education/Training Program; Visit Provider Student in an Organized Health Care Education/Training Program
DX: Z12.31 Encounter for screening mammogram for malignant neoplasm of breast (principal); Z00.00 Encounter for general adult medical examination without abnormal findings
CPT/HCPCS: 36415; 77063; 77067; 80048; 80061

== ENCOUNTER → 2021-08-05 08:33 | Outpatient (CLI) | payer OTHER, SELFPAY ==
[2021-08-05 10:41] LABS: Anion Gap 9 (5-15); BUN 12 mg/dL (7-18); BUN/Creat Ratio 13.3 RATIO (10-20); Calcium,Total 9.8 mg/dL (8.5-10.1); Chloride 100 mmol/L (98-107); Cholesterol 163 mg/dL (200); EST Glomerular Filtration Rate 67 mL/min (>60); Est Glom Filt Rate - Afr Amer 82 mL/min (>60); Glucose 128 mg/dL (74-106); High Density Lipoprotein 53 mg/dL; Potassium 4.1 mmol/L (3.5-5.1); Sodium Level 139 mmol/L (136-145); Triglycerides 97 mg/dL; Very Low Density Lipoprotein 19 mg/dL (5-40)
== END ==
PROVIDERS: PCP Family Medicine; Referring Provider Family Medicine; Visit Provider Family Medicine
DX: I10 Essential (primary) hypertension (principal)
CPT/HCPCS: 36415; 80048; 80061

== ENCOUNTER → 2021-08-20 | Outpatient (CLI) | payer OTHER, SELFPAY | END | disposition home or self-care (01) | PROVIDERS: PCP Family Medicine; Referring Provider Family Medicine; Visit Provider Family Medicine | DX: Z20.822 Contact with and (suspected) exposure to COVID-19 (principal) | CPT/HCPCS: 87635; U0005; U0003 ==

== ENCOUNTER → 2022-02-05 | Outpatient (CLI) | payer OTHER, SELFPAY ==
[2022-02-05 10:44] LABS: Anion Gap 7 (5-15); BUN 14 mg/dL (7-18); BUN/Creat Ratio 17.3 RATIO (10-20); Calcium,Total 9.3 mg/dL (8.5-10.1); Chloride 102 mmol/L (98-107); Cholesterol 176 mg/dL (200); Creatinine, Serum 0.81 mg/dL (0.55-1.02); EST Glomerular Filtration Rate 76 mL/min (>60); Est Glom Filt Rate - Afr Amer 92 mL/min (>60); Glucose 133 mg/dL (74-106); High Density Lipoprotein 52 mg/dL; Potassium 4.1 mmol/L (3.5-5.1); Sodium Level 138 mmol/L (136-145); Triglycerides 122 mg/dL; Very Low Density Lipoprotein 24 mg/dL (5-40)
[2022-02-05 10:51] LABS: Microalbumin:Creatinine Ratio 10.2 mg/g CRE (<30 mg/g CRE)
== END | disposition home or self-care (01) ==
LOC: MTLAB 07:59
PROVIDERS: PCP Family Medicine; Referring Provider Family Medicine; Visit Provider Family Medicine
DX: E11.9 Type 2 diabetes mellitus without complications (principal)
CPT/HCPCS: 36415; 80048; 80061; 82043; 82570

== ENCOUNTER → 2022-03-11 | Outpatient (CLI) | payer OTHER, SELFPAY ==
--- NOTE | 2022-03-11 09:47 | BI_ITS ---
MAMMOGRAPHY - BILATERAL SCREENING REASON FOR EXAM: Female, 62 years old. Routine annual screening examination. PERTINENT HISTORY: Non-contributory. TECHNIQUE: Digital bilateral breast joseph (3D mammographic acquisition) in the CC and MLO projections. 2-D mediolateral oblique (MLO) and craniocaudad (CC) views of both breasts were obtained. CAD: Full Field Digital Mammography with Computer Added Detection was performed. COMPARISON: Comparison is made with prior study of 01/30/2021 and 01/29/2020. FINDINGS: Breast Composition: The breasts are almost entirely fatty. There are no dominant masses or suspicious calcifications. No other significant abnormalities are identified. There has been no significant change since the prior study. BI/SCRN MAMM (CAD)W/JOSEPH BILAT IMPRESSION: Stable bilateral screening mammogram. Yearly follow-up mammogram recommended. (A) ASSESSMENT CATEGORY: BIRADS Category 1: Negative. A letter regarding these results will be sent to the patient by the facility within 30 days. Approximately 10% of breast cancers are not detected by mammography. A normal mammogram should not delay biopsy of a clinically suspicious abnormality. [id number] Electronically Signed: Nick Vee MD at 11:00 EDT ,
--- NOTE | 2022-03-11 09:53 | BD_ITS ---
STUDY: DUAL ENERGY X-RAY ABSORPTIOMETRY / DXA REASON FOR EXAM: Female, 62 years old. M85.89. Patient is postmenopausal. TECHNIQUE: Bone Mineral Density (BMD) measurements of lumbar spine and bilateral hips were obtained. COMPARISON: Comparison is made with prior study dated 11/11/2011. FINDINGS: Lumbar Spine (L1-L4): g/cm2 (0.958) / T-score (-0.8) / Z-score (0.8) Findings are suggestive of normal bone density with a low fracture risk. Left Femur Total: g/cm2 (0.881) / T-score (-0.5) / Z-score (0.6) Left Femoral Neck: g/cm2 (0.768) / T-score (-0.7) / Z-score (0.7) Right Femur Total: g/cm2 (0.902) / T-score (-0.3) / Z-score (0.8) Right Femoral Neck: g/cm2 (0.811) / T-score (-0.3) / Z-score (1.1) The T-Scores on the most recent prior examination were: Lumbar Spine (L1-L4): There has been worsening of bone density since the previous examination. Left Femur Total: which represents a worsening of 7.9%. Right Femur Total: which represents a worsening of 2.6%. BD/Dexa Bone Density Study IMPRESSION: The patient is considered normal as outlined below according to World [place] Organization (WHO) criteria with a low fracture risk. There has been worsening of bone density since the previous examination. Reference Information: The T-score is the number of standard deviations above or below the standard which is normal for young adults at their peak bone mineral density. The World Health Organization (WHO) interprets the T-scores as follows: Above -1 Normal bone density Between -1 and -2.5 Osteopenia Equal to / or below -2.5 Osteoporosis As a practical clinical guideline, osteopenia may be graded as follows: Mild -1 through -1.5 Moderate -1.6 through -2.0 Severe -2.1 through -2.4 The Z-score is the number of standard deviations above or below age-matched controls. A Z-score of less than -1.5 would be considered abnormal. References: 1. NIH Osteoporosis and Related Bone Diseases www osteo.org 2. International Society for Clinical Densitometry www iscd.org 3. National Osteoporosis Foundation www nof.org Electronically Signed: Nick Vee MD at 15:31 EDT ,
== END | disposition home or self-care (01) ==
LOC: OPBI 09:44
PROVIDERS: PCP Family Medicine; Visit Provider Student in an Organized Health Care Education/Training Program
DX: Z12.31 Encounter for screening mammogram for malignant neoplasm of breast (principal); M85.80 Other specified disorders of bone density and structure, unspecified site; Z78.0 Asymptomatic menopausal state
CPT/HCPCS: 77063; 77067; 77080

== ENCOUNTER → 2022-09-27 | Outpatient (CLI) | payer OTHER, SELFPAY | END | disposition home or self-care (01) | PROVIDERS: PCP Family Medicine; Visit Provider Urology | DX: N39.0 Urinary tract infection, site not specified (principal) | CPT/HCPCS: 87086; 87088 ==

== ENCOUNTER → 2022-11-01 | Outpatient (CLI) | payer OTHER, SELFPAY ==
[2022-11-01 13:06] LABS: Anion Gap 8 (5-15); BUN 12 mg/dL (7-18); BUN/Creat Ratio 14.1 RATIO (10-20); Calcium,Total 9.8 mg/dL (8.5-10.1); Chloride 103 mmol/L (98-107); Cholesterol 182 mg/dL (200); Creatinine, Serum 0.85 mg/dL (0.55-1.02); EST Glomerular Filtration Rate 71 mL/min (>60); Est Glom Filt Rate - Afr Amer 86 mL/min (>60); Glucose 120 mg/dL (74-106); High Density Lipoprotein 59 mg/dL; Potassium 3.8 mmol/L (3.5-5.1); Sodium Level 139 mmol/L (136-145); Triglycerides 125 mg/dL; Very Low Density Lipoprotein 25 mg/dL (5-40)
[2022-11-02 09:50] LABS: Hemoglobin A1c 6.8 % (3.8-5.6)
== END | disposition home or self-care (01) ==
LOC: MFPLAB 11:11
PROVIDERS: PCP Family Medicine; Visit Provider Family Medicine
DX: E11.9 Type 2 diabetes mellitus without complications (principal)
CPT/HCPCS: 36415; 80048; 80061; 83036

== ENCOUNTER → 2023-03-22 | Outpatient (CLI) | payer OTHER, SELFPAY ==
--- NOTE | 2023-03-22 07:30 | BI_ITS ---
MAMMOGRAPHY - BILATERAL SCREENING REASON FOR EXAM: Female, 63 years old. Routine annual screening examination. PERTINENT HISTORY: Non-contributory. TECHNIQUE: Digital bilateral breast joseph (3D mammographic acquisition) in the CC and MLO projections. 2-D mediolateral oblique (MLO) and craniocaudad (CC) views of both breasts were obtained. CAD: Full Field Digital Mammography with Computer Added Detection was performed. COMPARISON: Comparison is made with prior study dated March 11, 2022 and January 30, 2021 FINDINGS: Breast Composition: The breasts are almost entirely fatty. There are no dominant masses or suspicious calcifications. No other significant abnormalities are identified. There has been no significant change since the prior study. BI/SCRN MAMM (CAD)W/JOSEPH BILAT IMPRESSION: Stable bilateral screening mammogram. Yearly follow-up mammogram recommended. (A) ASSESSMENT CATEGORY: BIRADS Category 1: Negative. A letter regarding these results will be sent to the patient by the facility within 30 days. Approximately 10% of breast cancers are not detected by mammography. A normal mammogram should not delay biopsy of a clinically suspicious abnormality. [id number] Electronically Signed: Nick Vee MD at 9:14 EDT ,
== END | disposition home or self-care (01) ==
LOC: OPBI 07:28
PROVIDERS: PCP Family Medicine; Referring Provider Student in an Organized Health Care Education/Training Program; Visit Provider Student in an Organized Health Care Education/Training Program
DX: Z12.31 Encounter for screening mammogram for malignant neoplasm of breast (principal)
CPT/HCPCS: 77063; 77067

== ENCOUNTER → 2023-05-06 | Outpatient (CLI) | payer OTHER, SELFPAY ==
[2023-05-06 10:34] LABS: Anion Gap 6 (5-15); BUN 13 mg/dL (7-18); BUN/Creat Ratio 13.6 RATIO (10-20); Calcium,Total 9.6 mg/dL (8.5-10.1); Chloride 102 mmol/L (98-107); Cholesterol 197 mg/dL (200); Creatinine, Serum 0.95 mg/dL (0.55-1.02); EST Glomerular Filtration Rate 63 mL/min (>60); Est Glom Filt Rate - Afr Amer 76 mL/min (>60); Glucose 152 mg/dL (74-106); High Density Lipoprotein 53 mg/dL; Potassium 3.8 mmol/L (3.5-5.1); Sodium Level 138 mmol/L (136-145); Triglycerides 168 mg/dL; Very Low Density Lipoprotein 34 mg/dL (5-40)
== END | disposition home or self-care (01) ==
LOC: MTLAB 07:40
PROVIDERS: PCP Family Medicine; Referring Provider Family Medicine; Visit Provider Family Medicine
DX: E11.9 Type 2 diabetes mellitus without complications (principal)
CPT/HCPCS: 36415; 80048; 80061

== ENCOUNTER 2023-07-21 17:15 | Emergency (ER) | payer OTHER, SELFPAY ==
[2023-07-21 17:15] VITALS: BP 184/89; PULSE 105; RESP 20; TEMP 36.2; O2SAT 100; BMI 41.7
[2023-07-21 17:38] LABS: Bacteria 0 SEEN /hpf (None Seen); Mucous, Urine 0 SEEN /hpf (<or=2+)
[2023-07-21 17:45] LABS: Color, Urine Yellow (Yellow); Glucose, Dipstick Normal (Normal); Ketone-Dipstick 15 mg/dl (Negative); Leukocyte Esterase-Dipstick Negative /ul (Negative); Nitrite-Dipstick Negative (Negative); Occult Blood-Urine 25 /ul (Negative); Protein-Dipstick 30 mg/dl (Negative); Urine Bilirubin Dipstick Negative (Negative); Urine Clarity Clear (Clear); Urine Urobilinogen Normal (Normal)
[2023-07-21 17:53] LABS: Red Blood Cells-Urine 0-5 SEEN /hpf (0-5); Squamous Epithelial Cells - UA 0-5 SEEN /hpf (5-10); White Blood Cells 0-5 SEEN /hpf (0-5)
[2023-07-21 17:54] LABS: Absolute Lymphocyte Count 1.56 X10^3/uL (0.83-4.51); Absolute Neutrophil Count 11.2 X10^3/uL (2.0-7.7); Basophil# 0.04 X10^3/uL; Basophil% 0.3 % (0-1); Eosinophil# 0.02 X10^3/uL; Eosinophils% 0.1 % (0-5); Hematocrit 40.2 % (37-47); Hemoglobin 13.3 g/dL (12.0-15.0); Lymphocyte # 1.56 X10^3/ul (0.83-4.51); Lymphocyte % 11.3 % (19-41); Mean Corp Hgb Conc 33.1 g/dL (32-36); Mean Corpuscular Hgb 30.5 pg (27.0-32.0); Mean Corpuscular Volume 92.2 fL (81-99); Mean Platelet Vol. 10.4 fl (6.2-12.0); Monocyte# 0.94 X10^3/uL; Monocyte% 6.8 % (0-10); NRBC Flagged by Analyzer 0 % (0-5); Neutrophil # 11.24 X10^3/uL (2.7-7.7); Neutrophil % 81.1 % (47-70); Platelet Count 288 K/mm3 (150-450); RBC Distribution Width CV 13.1 % (11.6-14.6); RBC Distribution Width SD 44.3 fl (35.1-43.9); Red Blood Count 4.36 M/mm3 (4.2-5.4); White Blood Count 13.9 K/mm3 (4.4-11.0)
[2023-07-21 18:09] LABS: AST(SGOT) 13 U/L (15-37); Alanine Aminotransfer ALT/SGPT 30 U/L (13-56); Alkaline Phosphatase 85 U/L (45-117); Anion Gap 6 (5-15); BUN 10 mg/dL (7-18); BUN/Creat Ratio 11.3 RATIO (10-20); Calcium,Total 9.5 mg/dL (8.5-10.1); Chloride 98 mmol/L (98-107); Creatinine, Serum 0.88 mg/dL (0.55-1.02); EST Glomerular Filtration Rate 69 mL/min (>60); Est Glom Filt Rate - Afr Amer 83 mL/min (>60); Estimated Creatinine Clearance 62.81 ml/min; Globulin 4.2 g/dL (2.2-4.2); Glucose 130 mg/dL (74-106); Potassium 3.3 mmol/L (3.5-5.1); Protein, Total 8.2 g/dL (6.4-8.2); Sodium Level 133 mmol/L (136-145)
--- NOTE | 2023-07-21 19:25 | CT_ITS ---
STUDY: CT ABDOMEN AND PELVIS WITH CONTRAST REASON FOR EXAM: Female, 63 years old. lower abdominal pain RADIATION DOSAGE (If Supplied By Facility): CTDIvol = ( 16.85 ) mGy, DLP = ( 1193.88 ) mGycm TECHNIQUE: Transaxial images were obtained from the dome of the diaphragm to the symphysis pubis without oral contrast. IV 100mL Isovue-370 was administered. Sagittal and coronal images were reconstructed. Individualized dose optimization techniques were used for this CT. COMPARISON: February 08, 2019 FINDINGS: The visualized lung bases are unremarkable. The visualized portions of the heart are within normal limits. Nonspecific fatty infiltrated liver without mass or bile duct dilatation. Large calcified gallstone noted without evidence for acute cholecystitis. Normal spleen. Normal pancreas. Normal bilateral adrenal glands. Mild multilobulated appearance to the kidneys bilaterally. No evidence for obstruction or mass . Normal visualized stomach. Normal small intestine. Diffuse diverticular disease of the descending and sigmoid colon. There is subtle stranding in the fat which may be consistent with acute diverticulitis. No evidence for peridiverticular abscess. No evidence for acute appendicitis. Normal abdominal aorta. Normal inferior vena cava. Normal retroperitoneum. Normal urinary bladder. Normal abdominal wall. Normal osseous structures. CT/Abdomen/Pelvis W IV Cont ONLY IMPRESSION: Diverticular disease of the descending and sigmoid colon in association with mild acute diverticulitis of the sigmoid colon but no evidence for peridiverticular abscess. Gallstones without definitive evidence for acute cholecystitis Electronically Signed: Mikey Moreau MD at 20:33 EST Reading Location ID and State: [facility] / [place] Tel , Service support ,
[2023-07-21 20:25] LABS: Lactic Acid 1.1 mmol/L (0.4-1.9)
--- NOTE | 2023-07-21 21:12 | ED.VIS.GI ---
HPI HPI - GI History of Present Illness Chief Complaint: Abd Pain Informant: patient Narrative Narrative: Patient is a 63-year-old female with history of ongoing constipation, hypertension, diabetes mellitus and prior colonoscopy that did show diverticulosis but no personal history of diverticulitis. She is presenting with 2 days worsening lower abdominal pressure. She states yesterday morning she thought maybe it was gas however it is continued to be more persistent and worsen. She notes she has not a bowel movement 2 days which is unusual for her even with her chronic constipation. She been passing gas but less than normal. She states her symptoms are worse when she is standing or bending her abdomen. She also notes she does not have dysuria but when she pushes to urinate it increases the pain in her abdomen. Notes that she does have a known gallstone as well as hernia of her umbilical area that does hurt more when she pushes on it. Denies any history of any abdominal surgeries. Denies any nausea or vomiting. No fever or chills. No other complaints at this time. [facility] Medical History Acid reflux High cholesterol HTN (hypertension) Multiple thyroid nodules Recurrent UTI Home Medications ascorbic acid (vitamin C) 1,000 mg tablet 1,000 mg PO DAILY 04/05/19 [History Last Taken Unknown] aspirin 81 mg tablet,delayed release 81 mg PO DAILY 04/05/19 [History Last Taken 04/02/19] calcium carbonate-vitamin D3 600 mg-125 unit tablet 1 ea PO DAILY 04/05/19 [History Last Taken Unknown] cephalexin 250 mg capsule 250 mg PO QHS 04/05/19 [History Last Taken Unknown] cholecalciferol (vitamin D3) 25 mcg (1,000 unit) tablet 1,000 unit PO BID 04/05/19 [History Last Taken Unknown] metoprolol tartrate 50 mg tablet 50 mg PO BID 04/05/19 [History Last Taken Unknown] multivitamin with minerals 1 ea PO DAILY 04/05/19 [History Last Taken Unknown] omeprazole 20 mg capsule,delayed release 20 mg PO DAILY 04/05/19 [History Last Taken 04/09/19] lisinopril 20 mg-hydrochlorothiazide 25 mg tablet 1 tab PO DAILY 07/20/19 [History Last Taken Unknown] sennosides 8.6 mg tablet (senna) 8.6 mg PO BID 07/20/19 [History Last Taken Unknown] cefdinir 300 mg capsule 300 mg PO BID #14 caps 07/21/23 [Rx Last Taken Unknown] metronidazole 500 mg tablet 500 mg PO Q8H 7 days #21 tabs 07/21/23 [Rx Last Taken Unknown] Allergy/AdvReac Type Severity Reaction Status Date / Time Penicillins Allergy Unknown Verified 08/02/19 07:32 sulfamethoxazole Allergy muscle pain Verified 08/02/19 07:32 [From Bactrim] trimethoprim [From Bactrim] Allergy muscle pain Verified 08/02/19 07:32 Family History Mother Hypertension Diabetes Sister Hypertension Social History Smoking Status: Never smoker alcohol intake: current alcohol intake frequency: holidays/special occasions only ROS ROS ED Constitutional Constitutional ED: Denies chills or fever(s) Respiratory/Chest Respiratory/Chest: Denies cough Gastrointestinal Gastrointestinal: Reports abdominal pain and constipation; Denies nausea or vomiting Musculoskeletal Musculoskeletal: Denies arthralgias Integumentary Denies rash Neurologic Neurologic: Denies headache(s), paresthesias or weakness Hematologic/Lymphatic Hematologic/Lymphatic: Denies easy bleeding or easy bruising EXAM Physical Exam Const Vital Signs: 07/21/23 17:15 Temperature 97.2 F L Temperature Source Temporal Pulse Rate 105 H Respiratory Rate 20 H Blood Pressure 184/89 H Blood Pressure Mean 120 Pulse Ox 100 Oxygen Delivery Method Room Air Positive well nourished and well developed General Appearance ED: well developed and NAD HEENT Reports moist mucous membranes normocephalic and atraumatic Neck supple Resp normal respiratory effort and clear to auscultation bilaterally Cardio regular rate, regular rhythm and no murmurs GI non-tender and non-distended GI Narrative: No mass or hernia appreciated. Patient points to her lower abdomen as the area of pain however it is not tender on direct palpation Palpation: Negative for guarding or rigid Back/Spine no CVA tenderness Extremity General Extremety ED: Negative for edema General Extremity: Negative for edema Neuro Sensorium / Orientation: alert, oriented to person, oriented to place and oriented to time Motor Exam: Negative for general weakness Psych mental status grossly normal and thought process normal Skin no wounds Rashes: no rashes MDM MDM MDM Narrative Medical decision making narrative: Patient is evaluated for 2 days of constipation lower abdominal pain. Differential includes urinary tract infection, diverticulitis, small bowel obstruction and less likely cholecystitis, cystitis or renal colic. Patient is mildly tachycardic and hypertensive upon arrival however she declines pain medication. She is resting pretty comfortably at rest in the ER. CBC does show leukocytosis with a white blood cell count of 13.9. CMP unremarkable. Lactate is added on because of her leukocytosis and tachycardia however it is normal. Normal kidney function. Urinalysis is not consistent with UTI. CT of the abdomen pelvis shows diverticular disease of the descending and sigmoid colon and associated with mild acute diverticulitis of the sigmoid colon but no evidence of diverticular abscess or perforation. I think patient is a good candidate for outpatient antibiotic treatment. She is again offered Toradol or something for pain but declines. She is given first dose of Omnicef and Flagyl in the emergency room. Declines any prescription for pain medicine at discharge. Given return precautions. Counseled on the risk of antibiotic failure and need for IV antibiotics if she worsens. Encouraged to alternate ibuprofen and Tylenol as needed for discomfort. Encouraged to adhere to a liquid diet for the next 24 hours or until she is feeling better. She verbalizes agreement understanding with this plan. Discharged home in stable condition. Hypertensive in the ER and I does take her home blood pressure medicine while in the emergency room. Lab Data Labs: Laboratory Results - last 24 hr 07/21/23 07/21/23 19:50 Unknown WBC 13.9 H RBC 4.36 Hgb 13.3 Hct 40.2 MCV 92.2 MCH 30.5 MCHC 33.1 RDW Std Deviation 44.3 H RDW Coeff of [place] 13.1 Plt Count 288 MPV 10.4 Immature Gran % (Auto) 0.400 Neut % (Auto) 81.1 H Lymph % (Auto) 11.3 L [place] % (Auto) 6.8 Eos % (Auto) 0.1 Baso % (Auto) 0.3 Absolute Neuts (auto) 11.2 H Absolute Lymphs (auto) 1.56 Nucleated RBC % 0 Sodium 133 L Potassium 3.3 L Chloride 98 Carbon Dioxide 29.0 Anion Gap 6 BUN 10 Creatinine 0.88 Estim Creat Clear Calc 62.81 Est GFR (MDRD) Af Amer 83 Est GFR (MDRD) Non-Af 69 BUN/Creatinine Ratio 11.3 Glucose 130 H Lactic Acid 1.1 Calcium 9.5 Total Bilirubin 1.10 H AST 13 L ALT 30 Alkaline Phosphatase 85 Total Protein 8.2 Albumin 4.0 Globulin 4.2 Albumin/Globulin Ratio 1.0 Urine Color Yellow Urine Clarity Clear Urine pH 6.0 Ur Specific [place] 1.010 Urine Protein 30 H Urine Glucose (UA) Normal Urine Ketones 15 H Urine Occult Blood 25 H Urine Nitrite Negative Urine Bilirubin Negative Urine Urobilinogen Normal Ur Leukocyte Esterase Negative Urine RBC 0-5 SEEN Urine WBC 0-5 SEEN Ur Squamous Epith Cells 0-5 SEEN Urine Bacteria 0 SEEN Urine Mucus 0 SEEN Radiography Diagnostic Testing: Clinical Impression(s) from Imaging Studies Abdomen/Pelvis CT 07/21/23 19:25 IMPRESSION: Diverticular disease of the descending and sigmoid colon in association with mild acute diverticulitis of the sigmoid colon but no evidence for peridiverticular abscess. Gallstones without definitive evidence for acute cholecystitis Electronically Signed: Mikey Moreau MD at 20:33 EST Reading Location ID and State: [address] [place] [address] Tel , Service support , Discharge Plan Triage Chief Complaint: Abd Pain ED Provider: Aby Jeff Dx/Rx/DC Orders Clinical Impression: Diverticulitis large intestine w/o perforation or abscess w/o bleeding Instructions: ED Diverticulitis Prescriptions: New metronidazole 500 mg tablet 500 mg PO Q8H 7 Days Qty: 21 0RF cefdinir 300 mg capsule 300 mg PO BID Qty: 14 0RF No Action sennosides [senna] 8.6 mg tablet 8.6 mg PO BID lisinopril-hydrochlorothiazide 20-25 mg tablet 1 tab PO DAILY ascorbic acid (vitamin C) 1,000 MG tablet 1,000 mg PO DAILY cephalexin 250 MG capsule 250 mg PO QHS aspirin 81 MG tablet,delayed release (DR/EC) 81 mg PO DAILY metoprolol tartrate 50 MG tablet 50 mg PO BID omeprazole 20 MG capsule 20 mg PO DAILY multivitamin with minerals 1 EACH tablet 1 ea PO DAILY calcium carbonate-vitamin D3 1 EACH tablet 1 ea PO DAILY cholecalciferol (vitamin D3) 1,000 UNIT tablet 1,000 unit PO BID Primary Care Provider: Jeffery Godinez Referrals: Jeffery Godinez MD [Primary Care Provider] - Activity Restrictions/Additional Instructions: You may take [id number] ibuprofen or Tylenol for pain. Continue taking your home meds except for your metformin for 48 hours because of the IV contrast you received tonight. Drink plenty of fluids. Try to stick to a liquid diet until you are feeling better. If your symptoms worsen please return to the emergency room. Disposition Disposition: Home, Self Care
[2023-07-21] MEDS: Cefdinir 300 MG Capsule PO (21:43)
[2023-07-21] MEDS: metroNIDAZOLE 500 MG Tablet PO (21:43)
== END 2023-07-21 21:49 | disposition home or self-care (01) ==
PROVIDERS: Emergency Provider Emergency Medicine; PCP Family Medicine; Visit Provider Emergency Medicine
DX: K57.32 Diverticulitis of large intestine without perforation or abscess without bleeding (principal); E11.9 Type 2 diabetes mellitus without complications; I10 Essential (primary) hypertension; E78.00 Pure hypercholesterolemia, unspecified; K59.00 Constipation, unspecified
CPT/HCPCS: 36415; 74177; 80053; 81001; 83605; 85025; 99283; Q9967; A4216

== ENCOUNTER → 2023-07-21 | Outpatient (CLI) | payer OTHER, SELFPAY ==
--- NOTE | 2023-07-21 16:56 | US_ITS ---
STUDY: THYROID ULTRASOUND REASON FOR EXAM: Female, 63 years old. Known nodules TECHNIQUE: Ultrasound evaluation of the thyroid was performed with real-time and static byrnes-scale imaging. COMPARISON: 2019 FINDINGS: RIGHT LOBE: The right lobe of the thyroid gland measures 4.1 x 1.5 x 1.5 cm. There is a homogeneous echotexture. There is a stable simple 3 mm cyst. No suspicious hypoechoic nodule. LEFT LOBE: The left lobe of the thyroid gland measures 4.2 x 1.7 x 1.7 cm. There is a homogeneous echotexture. There is a stable partially calcified 1.2 cm nodule, there is a stable 0.5 cm hypoechoic nodule. ISTHMUS: The isthmus measures 0.15 cm. The regional lymph nodes are normal. US/Thyroid IMPRESSION: Stable thyroid ultrasound. No new suspicious findings. Specifically, stable 1.2 cm partially calcified nodule. This nodule is solid or almost completely solid, hypoechoic, [id number]-uwjq, smoothly marginated and contains no echogenic foci. TI-RADS points: 4. TI-RADS category: TR4. This nodule is moderately suspicious. No further follow-up is necessary given the small size of this nodule and stability over more than 5 years. Electronically Signed: Osorio De La Cruz MD at 15:37 EST ,
== END | disposition home or self-care (01) ==
LOC: US 16:53
PROVIDERS: PCP Family Medicine; Visit Provider Surgery
DX: E04.2 Nontoxic multinodular goiter (principal)
CPT/HCPCS: 76536

== ENCOUNTER → 2023-11-10 | Outpatient (CLI) | payer OTHER, SELFPAY ==
[2023-11-10 10:47] LABS: ALB/GLOB Ratio 1.1 RATIO (0.9-2.4); AST(SGOT) 18 U/L (15-37); Alanine Aminotransfer ALT/SGPT 38 U/L (13-56); Alkaline Phosphatase 78 U/L (45-117); Anion Gap 6 (5-15); BUN 14 mg/dL (7-18); Calcium,Total 9.5 mg/dL (8.5-10.1); Chloride 102 mmol/L (98-107); Cholesterol 191 mg/dL (200); Creatinine, Serum 1.08 mg/dL (0.55-1.02); EST Glomerular Filtration Rate 54 mL/min (>60); Est Glom Filt Rate - Afr Amer 66 mL/min (>60); Globulin 3.7 g/dL (2.2-4.2); Glucose 145 mg/dL (74-106); High Density Lipoprotein 59 mg/dL; Protein, Total 7.7 g/dL (6.4-8.2); Sodium Level 137 mmol/L (136-145); Triglycerides 126 mg/dL; Very Low Density Lipoprotein 25 mg/dL (5-40)
[2023-11-10 11:11] LABS: Microalbumin,Random Urine < 5.0 mg/L (NO RANGE EST.)
== END | disposition home or self-care (01) ==
LOC: MFPLAB 08:15
PROVIDERS: PCP Family Medicine; Visit Provider Family Medicine
DX: I10 Essential (primary) hypertension (principal)
CPT/HCPCS: 36415; 80053; 80061; 82043; 82570

== ENCOUNTER 2024-04-23 07:38 | Day surgery (SDC) | payer OTHER, SELFPAY ==
[2024-04-23] VITALS (8 sets, daily range): BP systolic 94–138; BP diastolic 52–82; PULSE 58–65; RESP 18; TEMP 36.1–36.4; O2SAT 98–100; BMI 39.6
[2024-04-23] MEDS: Lactated Ringers 1,000 ML 15 ML IV (08:06)
--- NOTE | 2024-04-23 08:26 | PRE.ANES_ITS ---
ASA Classification* ASA Classification ASA Classification: 2 Assessment & Plan Anesthesia* Anesthesia Assessment Anesthesia Assessment: Discussed sedation and/or anesthesia options, risks, benefits, and alternatives with patient/parents/legal guardian/POA. Questions invited. The patient/parents/legal guardian/POA seems to understand and agrees to proceed with anesthesia plan. Reviewed the physical assessment, medical history, allergy history and patient home medications list prior to surgery/procedure/anesthetic and documented any changes. Performed airway and anesthesia risk assessments. Anesthesia Type Anesthesia Type: MAC History Source History Obtained from:: Patient and Chart Anesthesia Focused Assessment* Temperature: 97.5 F Pulse Rate: 65 Blood Pressure: 138/82 Respiratory Rate: 18 Pulse Ox: 100 Airway Assessment Mouth opens: >3 cm Mallampati Score: II Focused Labs Anesthesia Preop lab: CBC WBC 13.9 K/mm3 (4.4-11.0) H 07/21/23 23:59 RBC 4.36 M/mm3 (4.2-5.4) 07/21/23 23:59 Hgb 13.3 g/dL (12.0-15.0) 07/21/23 23:59 Hct 40.2 % (37-47) 07/21/23 23:59 Plt Count 288 K/mm3 (150-450) 07/21/23 23:59 CHEMISTRY Potassium 4.0 mmol/L (3.5-5.1) 11/10/23 08:15 Sodium 137 mmol/L (136-145) 11/10/23 08:15 BUN 14 mg/dL (7-18) 11/10/23 08:15 Creatinine 1.08 mg/dL (0.55-1.02) H 11/10/23 08:15 Glucose 145 mg/dL (74-106) H 11/10/23 08:15 POC Glucose 156 mg/dL (74-106) H 04/23/24 08:02 TSH 1.25 uIU/mL (0.358-3.74) 10/11/18 09:21 COAG Pre-Assessment Diagnosis/Proposed Procedure Planned Operative Procedure(s): CSCOPE Anesthesia History 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 When Was Last Pacemaker Check QUESTION #4 FULL TEXT: You/Your Family Experience fever (hyperthermia) with Anesthesia Last Oral Intake Last Oral intake: Last Oral Intake NPO since 04:45 04/23/24 07:55 Meds taken in AM with sips of Yes 04/23/24 07:55 water? Meds patient instructed to see medlist 04/23/24 07:55 take am of surgery PONV PONV - fiction and nonfiction prose writer: PONV - fiction and nonfiction prose writer Female Yes 04/18/24 12:19 HX of Motion Sickness Yes 04/18/24 12:19 HX of N/V After Surgery No 04/18/24 12:19 Non-Smoker Yes 04/18/24 12:19 Duration of Surgery greater No 04/18/24 12:19 than 60 minutes Number of Risk Factors 3 04/18/24 12:19 PONV Score Moderate Risk 04/18/24 12:19 Height & Weight Height & Weight: Anesthesia: Height & Weight Height 5 ft 7 in 04/23/24 07:55 Weight: 115 kg 04/23/24 07:55 Body Mass Index (BMI) 39.6 04/23/24 07:55 Respiratory Assessment Respiratory Assessment - fiction and nonfiction prose writer: Respiratory Tract Infection Hx - fiction and nonfiction prose writer Hx Respiratory Tract Infection No 04/18/24 12:19 STOP Sleep Apnea STOP Sleep Apnea - fiction and nonfiction prose writer: STOP Sleep Apnea - fiction and nonfiction prose writer Hx Hypertension Yes: CONTROLLED WITH MED 04/18/24 12:19 Hx Sleep Apnea No 04/18/24 12:19 CPAP BIPAP Do you snore loudly (louder No 04/18/24 12:19 than talking or can be heard Do you often feel tired/ No 04/18/24 12:19 fatigued/ sleepy during daytime? Has anyone observed you stop No 04/18/24 12:19 breathing during sleep? STOP Results Negative 04/18/24 12:19 QUESTION #5 FULL TEXT : Do you snore loudly (louder than talking or can be heard through closed doors)? 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 Specify any problems Hx of Preganancy in last 3 N/A 04/18/24 12:19 Months Nurse Filling Out Transfusion NBUCHER 04/18/24 12:19 & Questions: Date: 04/18/24 04/18/24 12:19 Time: 12:21 04/18/24 12:19 Patient unable to answer at this time (ie. confused, unrespo /Reproduction History /Reproductive History - fiction and nonfiction prose writer: /Reproductive Hx- fiction and nonfiction prose writer Hx Now No 04/18/24 12:19 Gestational Age (in weeks): EDC: Hx Hx Para Hx Section SAB No 04/18/24 12:19 Active Medications Active Medications: Current Medications Generic Name Dose Route Start Last Admin Trade Name Freq PRN Reason Stop Dose Admin Lactated Ringer's 1,000 mls @ 15 mls/hr 04/23/24 08:00 04/23/24 08:06 IV 15 mls/hr .Q48H FAVIOLA Administration PFSH Medical History Wears glasses Thyroid nodule Arthritis Syncope History of diverticulitis Non-smoker History of edema History of stress test History of echocardiogram History of irregular heartbeat Diabetes Diverticulitis large intestine w/o perforation or abscess w/o bleeding Multiple thyroid nodules Recurrent UTI High cholesterol Acid reflux HTN (hypertension) Home Medications ?Medication ?Instructions ?Recorded ?Last Taken ?Type ascorbic acid (vitamin C) 1,000 mg 1,000 mg PO DAILY 04/05/19 Unknown History tablet aspirin 81 mg tablet,delayed 81 mg PO DAILY 04/05/19 04/19/24 History release calcium carbonate-vitamin D3 600 1 ea PO DAILY 04/05/19 Unknown History mg-125 unit tablet cholecalciferol (vitamin D3) 25 1,000 unit PO BID 04/05/19 Unknown History mcg (1,000 unit) tablet metoprolol tartrate 50 mg tablet 50 mg PO BID 04/05/19 04/23/24 History multivitamin with minerals 1 ea PO DAILY 04/05/19 Unknown History omeprazole 20 mg capsule,delayed 20 mg PO DAILY 04/05/19 04/23/24 History release lisinopril 20 1 tab PO DAILY 07/20/19 Unknown History mg-hydrochlorothiazide 25 mg tablet clonidine HCl 0.1 mg tablet 0.05 mg PO BID 03/23/24 04/23/24 History conjugated estrogens 0.625 mg/gram 0.625 mg vaginal DAILY 03/23/24 Unknown History vaginal cream metformin 500 mg tablet 500 mg PO DAILY 03/23/24 Unknown History sennosides 8.6 mg-docusate sodium 1 tab-cap PO QHS 03/23/24 Unknown History 50 mg tablet (Laxative Stool Softener With Senna) diphenhydramine HCl 25 mg capsule 25 mg PO DAILY 04/18/24 Unknown History (Aler-Cap) lisinopril 20 mg tablet 20 mg PO QHS 04/18/24 04/23/24 History cranberry-vit cap PO .QD 04/19/24 Unknown History C-B.coag-FOS-L.acid-L.rham 250 mg-30 mg-39.5 mg capsule (Probiotic Plus and Cranberry) d-mannose 500 mg capsule 500 mg PO .QD 04/19/24 Unknown History Allergy/AdvReac Type Severity Reaction Status Date / Time nitrofurantoin (From Allergy Swelling Verified 04/23/24 07:53 Macrobid) Penicillins Allergy PT UNSURE Verified 04/23/24 07:53 OF REACTION sulfamethoxazole (From Allergy muscle pain Verified 04/23/24 07:53 Bactrim) trimethoprim (From Bactrim) Allergy muscle pain Verified 04/23/24 07:53 Family History Mother Hypertension Diabetes Sister Hypertension Colon polyps, Onset Age: 50 Surgical History History of wisdom tooth extraction (~1977) History of colonoscopy with polypectomy Social History household members: spouse current occupational status: employed current occupation: [employer] Smoking Status: Never smoker alcohol intake: current alcohol intake frequency: holidays/special occasions only substance use type: does not use Review of Systems (Anesthesia) ROS Narrative System reviewed and no additional complaints, except as documented.
[2024-04-23 08:27] LABS: Bedside Glucose 156 mg/dL (74-106)
--- NOTE | 2024-04-23 08:51 | PCM.HP.STD ---
[facility] - General General Date of Service: 04/23/24 Chief Complaint: Personal history of polyps [facility] Narrative FALGUNI OSBORNE, is a 64 F who presents today for surveillance colonoscopy. She had a colonoscopy in 2019. She did have a bowel done at time those removed. She also has a history of diverticular disease with diverticulitis diagnosed about a year ago. She is not having abdominal pain. Is not any cramping. She denied any chest pain shortness of breath. Overall she is in fairly good health. [facility] Medical History Wears glasses Thyroid nodule Arthritis Syncope History of diverticulitis Non-smoker History of edema History of stress test History of echocardiogram History of irregular heartbeat Diabetes Diverticulitis large intestine w/o perforation or abscess w/o bleeding Multiple thyroid nodules Recurrent UTI High cholesterol Acid reflux HTN (hypertension) Home Medications ?Medication ?Instructions ?Recorded ?Last Taken ?Type ascorbic acid (vitamin C) 1,000 mg 1,000 mg PO DAILY 04/05/19 Unknown History tablet aspirin 81 mg tablet,delayed 81 mg PO DAILY 04/05/19 04/19/24 History release calcium carbonate-vitamin D3 600 1 ea PO DAILY 04/05/19 Unknown History mg-125 unit tablet cholecalciferol (vitamin D3) 25 1,000 unit PO BID 04/05/19 Unknown History mcg (1,000 unit) tablet metoprolol tartrate 50 mg tablet 50 mg PO BID 04/05/19 04/23/24 History multivitamin with minerals 1 ea PO DAILY 04/05/19 Unknown History omeprazole 20 mg capsule,delayed 20 mg PO DAILY 04/05/19 04/23/24 History release lisinopril 20 1 tab PO DAILY 07/20/19 Unknown History mg-hydrochlorothiazide 25 mg tablet clonidine HCl 0.1 mg tablet 0.05 mg PO BID 03/23/24 04/23/24 History conjugated estrogens 0.625 mg/gram 0.625 mg vaginal DAILY 03/23/24 Unknown History vaginal cream metformin 500 mg tablet 500 mg PO DAILY 03/23/24 Unknown History sennosides 8.6 mg-docusate sodium 1 tab-cap PO QHS 03/23/24 Unknown History 50 mg tablet (Laxative Stool Softener With Senna) diphenhydramine HCl 25 mg capsule 25 mg PO DAILY 04/18/24 Unknown History (Aler-Cap) lisinopril 20 mg tablet 20 mg PO QHS 04/18/24 04/23/24 History cranberry-vit cap PO .QD 04/19/24 Unknown History C-B.coag-FOS-L.acid-L.rham 250 mg-30 mg-39.5 mg capsule (Probiotic Plus and Cranberry) d-mannose 500 mg capsule 500 mg PO .QD 04/19/24 Unknown History Allergy/AdvReac Type Severity Reaction Status Date / Time nitrofurantoin (From Allergy Swelling Verified 04/23/24 07:53 Macrobid) Penicillins Allergy PT UNSURE Verified 04/23/24 07:53 OF REACTION sulfamethoxazole (From Allergy muscle pain Verified 04/23/24 07:53 Bactrim) trimethoprim (From Bactrim) Allergy muscle pain Verified 04/23/24 07:53 Family History Mother Hypertension Diabetes Sister Hypertension Colon polyps, Onset Age: 50 Surgical History History of wisdom tooth extraction (~1977) History of colonoscopy with polypectomy Social History household members: spouse current occupational status: employed current occupation: [employer] Smoking Status: Never smoker alcohol intake: current alcohol intake frequency: holidays/special occasions only substance use type: does not use ROS Review of Systems ROS Unobtainable: other Constitutional Constitutional: Denies fatigue, fever(s), poor appetite, weight gain or weight loss ENT HEENT: Denies mouth lesions Cardiovascular Cardiovascular: Denies abdominal bloating, abdominal edema or abdominal pain Respiratory/Chest Respiratory/Chest: Denies change in mental status, change in phlegm color, chest congestion or chest tightness Gastrointestinal Gastrointestinal: Denies belching, bloating, change in bowel habits, change in stool character, chewing difficulty, coffee ground emesis, constipation, cramping, diarrhea, dyspepsia, dysphagia, early satiety, excessive flatus, fecal incontinence, heartburn, hematemesis, hematochezia, hemorrhoids, loose stools, melena, nausea, odynophagia, rectal bleeding, tenesmus, vomiting or weight changes Genitourinary Genitourinary: Denies abdominal discomfort, burning urination or itching Musculoskeletal Musculoskeletal: Reports as per HPI; Denies muscle weakness or myalgias Integumentary Integumentary: Denies jaundice Neurologic Neurologic: Denies lack of coordination or weakness Psychiatric Psychiatric: Denies confusion, depression, memory loss, mood swings, paranoia or suicidal ideation Endocrine Endocrinology: Denies systems reviewed and no addt'l complaints, except as documented Hematologic/Lymphatic Hematologic/Lymphatic: Denies anemia, easy bleeding, easy bruising or lymphadenopathy Allergic/Immunologic Allergic/Immunologic: Denies systems reviewed and no addt'l complaints, except as documented Vital Signs Vital Signs Vital Signs: 04/23/24 07:55 04/23/24 07:55 04/23/24 08:26 Temperature 97.5 F L 97.5 F L Temperature Source Temporal Pulse Rate 65 65 Respiratory Rate 18 18 Respiratory Pattern Normal Blood Pressure 138/82 H 138/82 H Blood Pressure Mean 100 Blood Pressure Source Monitor Blood Pressure Position Semi-Fowlers Blood Pressure Location Left Arm Pulse Ox 100 100 Oxygen Delivery Method Room Air Weight Weight: 253 lb 8.505 oz Body Mass Index (BMI) 39.6 Physical Exam Const alert General Appearance: cooperative Orientation / Consciousness: oriented to person HEENT hearing grossly normal bilaterally Head and Scalp: normal to inspection Face and Sinus: face symmetric Nose: external nose normal Mouth: oral and palatal mucosa normal Eyes conjunctivae normal General Eye: normal appearance of both eyes Neck full ROM General: normal visual inspection Lymph Lymphatic: no lymphadenopathy noted Chest inspection of chest normal and palpation of chest normal Chest: symmetrical chest wall rise Resp normal respiratory effort Effort and Inspection: able to speak in complete sentences Cardio regular rate GI non-distended Percussion: normal to percussion Rectal Exam: deferred Neuro Speech: speech normal Gait (Neuro): normal gait Results Lab / Micro Data Labs: Laboratory Results - last 24 hr 04/23/24 08:02: POC Glucose 156 H Assessment & Plan Assessment/Plan (1) Encounter for screening for malignant neoplasm of colon: PLAN: She was explained alternatives, risk, benefits including not withstanding bleeding, infection, sepsis, perforation, need for emergent surgery . She will have an ASA of 3.
--- NOTE | 2024-04-23 09:00 | COLBX_PTH ---
PATIENT: FALGUNI OSBORNE LOC: EN U#:[id number] AGE/SX: 64/F ROOM: RE04/23/[address]: Dr. Marcelino Smith DO : 1960 BED: DIS: 04/23/2024 SPEC #: [id number] RECD: 04/23/24 12:40 STATUS: ALYSON RETalita #: [id number] JOE: 04/23/24 09:[address]: Marcelino Smith DEPT: SURGICAL PATHOLOGY RECD BY: Kerri Rodriguez ENTERED: 04/23/24 13:19 SP TYPE: COLON BX OTHR DR: Dr. Jeffery Godinez MD Tissues: A - Cecum, NOS B - COLON BIOPSY Procedures: Surgery Specimen Level IV HEADER OPERATION: Colonoscopy with polypectomy PRE-OP DIAGNOSIS: Encounter for screening for malignant neoplasm of colon TISSUE SUBMITTED: A- Cecum polyp, B- Hepatic flexure polyp MICROSCOPIC DIAGNOSIS A. Cecum polyp, biopsy: Hyperplastic polyp. B. Colonic polyp at hepatic flexure, biopsy: Tubular adenoma. 04/24/2024 MICROSCOPIC DESCRIPTION Slides are reviewed. GROSS DESCRIPTION A. Received in fixative is one container labeled with the patient's name and designated Cecum polyp. The specimen consists of a epstein-pink polyp measuring 0.6 x 0.5 x 0.2cm. The entire specimen is submitted in one cassette. B. Received in fixative is one container labeled with the patient's name and designated Hepatic flexure polyp. The specimen consists of one irregular fragment of light epstein soft tissue that measures 0.2 x 0.2 x 0.1 cm. The specimen is totally submitted in one cassette. Kade 04/23/2024 TC:5 CPT:35858p0
--- NOTE | 2024-04-23 09:33 | OP.COLON_ITS ---
Patient Name: Wandy Padilla Procedure Date: 04/23/2024 8:57 AM Date of : 1960 Age: 64 Procedure: Colonoscopy Indications: High risk colon cancer surveillance: Personal history of colonic polyps Providers: Marcelino Smith DO Referring MD: Jeffery Godinez MD Medicines: Monitored Anesthesia Care Patient Profile: This is a 64 year old female. Refer to note in patient chart for documentation of history and physical. Last Colonoscopy: 5 years ago. Complications: No immediate complications. Procedure: Pre-Anesthesia Assessment: - Prior to the procedure, a History and Physical was performed, and patient medications and allergies were reviewed. The patient is competent. The risks and benefits of the procedure and the sedation options and risks were discussed with the patient. All questions were answered and informed consent was obtained. Patient identification and proposed procedure were verified by the physician in the pre-procedure area. Mental Status Examination: alert and oriented. Airway Examination: normal oropharyngeal airway and neck mobility. Respiratory Examination: clear to auscultation. CV Examination: normal. Prophylactic Antibiotics: The patient does not require prophylactic antibiotics. Prior Anticoagulants: The patient has taken no anticoagulant or antiplatelet agents. ASA Grade Assessment: II - A patient with mild systemic disease. After reviewing the risks and benefits, the patient was deemed in satisfactory condition to undergo the procedure. The anesthesia plan was to use moderate sedation / analgesia (conscious sedation). Immediately prior to administration of medications, the patient was re-assessed for adequacy to receive sedatives. The heart rate, respiratory rate, oxygen saturations, blood pressure, adequacy of pulmonary ventilation, and response to care were monitored throughout the procedure. The physical status of the patient was re-assessed after the procedure. After I obtained informed consent, the scope was passed under direct vision. Throughout the procedure, the patient's blood pressure, pulse, and oxygen saturations were monitored continuously. The pediatric colonoscope was introduced through the anus and advanced to the cecum, identified by appendiceal orifice and ileocecal valve. The colonoscopy was performed without difficulty. The patient tolerated the procedure well. The quality of the bowel preparation was adequate. The ileocecal valve, appendiceal orifice, and rectum were photographed. Scope In: 9:08:44 AM Scope Withdrawal Time 0 hours 14 minutes 16 seconds Scope Out: 9:27:15 AM Total Procedure Duration Time 0 hours 18 minutes 31 seconds Findings: The perianal and digital rectal examinations were normal. Multiple small and large-mouthed diverticula were found in the recto-sigmoid colon and sigmoid colon. Two sessile polyps were found in the hepatic flexure and cecum. The polyps were 1 to 2 mm in size. These polyps were removed with a cold snare. Resection and retrieval were complete. Verification of patient identification for the specimen was done. Estimated blood loss was minimal. The exam was otherwise without abnormality on direct and retroflexion views. Impression: - Diverticulosis in the recto-sigmoid colon and in the sigmoid colon. - Two 1 to 2 mm polyps at the hepatic flexure and in the cecum, removed with a cold snare. Resected and retrieved. - The examination was otherwise normal on direct and retroflexion views. Recommendation: - Discharge patient to home. - Resume previous diet. - Continue present medications. - Await pathology results. - Repeat colonoscopy in 5 years for surveillance. Procedure Code(s): --- Professional --- 07504, Colonoscopy, flexible; with removal of tumor(s), polyp(s), or other lesion(s) by snare technique CPT copyright 2021 [employer]. All rights reserved. The codes documented in this report are preliminary and upon inpatient coder review may be revised to meet current compliance requirements. Marcelino Smith DO 04/23/2024 9:32:22 AM This report has been signed electronically. Number of Addenda: 0 Note Initiated On: 04/23/2024 8:57 AM
--- NOTE | 2024-04-23 09:33 | OP.CCLET_ITS ---
04/23/2024 Jeffery Godinez MD [address] [id number] Re : Colonoscopy procedure for Wandy Padilla Dear Dr. Godinez This procedure was performed on Tuesday, April 23, 2024. My impressions and recommendations are as follows: Impressions : - Diverticulosis in the recto-sigmoid colon and in the sigmoid colon. - Two 1 to 2 mm polyps at the hepatic flexure and in the cecum, removed with a cold snare. Resected and retrieved. - The examination was otherwise normal on direct and retroflexion views. Recommendations : - Discharge patient to home. - Resume previous diet. - Continue present medications. - Await pathology results. - Repeat colonoscopy in 5 years for surveillance. My findings are described in the full procedure note, which is enclosed. If I can be of further assistance, please feel free to contact me at . Sincerely, Marcelino Smith, 04/23/2024 9:32:22 AM This report has been signed electronically.
--- NOTE | 2024-04-23 09:36 | PCM.POST.ANE ---
Anesthesia: Postop Eval I Current Vital Signs Temperature: 97 F Pulse Rate: 60 Blood Pressure: 116/54 Respiratory Rate: 18 Pulse Ox: 100 Oxygen Delivery Method: Room Air Assessment Airway patent: Yes Spontaneous unlabored respirations: Yes Mental status: Awake and Calm nausea: No Vomiting: No Anesthesia Complication: No Fluid Hydration Crystalloid volume administer (ml): 600 Total IV fluid infused: 600 Progress Note Anesthesia document: Postop Eval 1 completed: Yes
--- NOTE | 2024-04-23 11:50 | PCM.POSTANE2 ---
Anesthesia Postop Eval I Sum Postop Eval Completion status Anesthesia document: Postop Eval 1 completed: Yes Anesthesia Postop Eval I Summary Anesthesia Postop Eval I Summary: Anesthesia Postop Eval I: Assessment Summary Airway patent Yes 04/23/24 09:37 [email or web address] Spontaneous unlabored Yes 04/23/24 09:37 [email or web address] respirations Mental status Awake,Calm 04/23/24 09:37 [email or web address] nausea No 04/23/24 09:37 [email or web address] Vomiting No 04/23/24 09:37 [email or web address] Anesthesia Postop Eval I: Fluid Summary Crystalloid volume administer 600 04/23/24 09:37 [email or web address] (ml) Colloids volume administered ( ml) Blood Product volume administered (ml) Total IV fluid infused 600 04/23/24 09:37 [email or web address] Anesthesia Postop Eval I: Summary Notes Anesthesia Complication No 04/23/24 09:37 [email or web address] Anesthesia Complication Comment: Post-operative progress note Anesthesia: Postop Eval II Evaluation Mental status: Awake and Calm Pain Level: 0 nausea: No Vomiting: No Complications Anesthesia Complication: No
== END 2024-04-23 10:14 | disposition home or self-care (01) ==
LOC: EN 07:39 → AC 07:40
PROVIDERS: PCP Family Medicine; Referring Provider Family Medicine; Visit Provider Internal Medicine Gastroenterology
PROC: 0DJD8ZZ Inspection of Lower Intestinal Tract, Via Natural or Artificial Opening Endoscopic (ICD-10-PCS; CPT 45378; principal; 2024-04-23 08:55)
DX: Z12.11 Encounter for screening for malignant neoplasm of colon (principal); E11.9 Type 2 diabetes mellitus without complications; I10 Essential (primary) hypertension; E78.00 Pure hypercholesterolemia, unspecified; K57.30 Diverticulosis of large intestine without perforation or abscess without bleeding; Z79.82 Long term (current) use of aspirin; Z86.010 Personal history of colon polyps; D12.3 Benign neoplasm of transverse colon; K63.5 Polyp of colon; Z79.84 Long term (current) use of oral hypoglycemic drugs; K21.9 Gastro-esophageal reflux disease without esophagitis; Z79.899 Other long term (current) drug therapy
CPT/HCPCS: 45385; 82962; 88305; J7120; J2405

== ENCOUNTER → 2024-05-01 | Outpatient (CLI) | payer OTHER, SELFPAY ==
--- NOTE | 2024-05-01 15:35 | BI_ITS ---
MAMMOGRAPHY - BILATERAL SCREENING REASON FOR EXAM: Female, 64 years old. Routine annual screening examination. PERTINENT HISTORY: Non-contributory. TECHNIQUE: Digital bilateral breast joseph (3D mammographic acquisition) in the CC and MLO projections. 2-D mediolateral oblique (MLO) and craniocaudad (CC) views of both breasts were obtained. CAD: Full Field Digital Mammography with Computer Added Detection was performed. COMPARISON: Comparison is made with prior study dated March 22, 2023 and March 11, 2022. FINDINGS: Breast Composition: The breasts are almost entirely fatty. There are no dominant masses or suspicious calcifications. No other significant abnormalities are identified. There has been no significant change since the prior study. BI/SCRN MAMM (CAD)W/JOSEPH BILAT IMPRESSION: Stable bilateral screening mammogram. Yearly follow-up mammogram recommended. (A) ASSESSMENT CATEGORY: BIRADS Category 1: Negative. A letter regarding these results will be sent to the patient by the facility within 30 days. Approximately 10% of breast cancers are not detected by mammography. A normal mammogram should not delay biopsy of a clinically suspicious abnormality. [id number] Electronically Signed: Nick Vee MD at 7:46 EDT ,
--- NOTE | 2024-05-01 15:35 | BD_ITS ---
STUDY: DUAL ENERGY X-RAY ABSORPTIOMETRY / DXA REASON FOR EXAM: Female, 64 years old. [id number] TECHNIQUE: Bone Mineral Density (BMD) measurements of lumbar spine and bilateral hips were obtained. COMPARISON: Comparison is made with prior study dated March 11, 2022. FINDINGS: Lumbar Spine (L1-L4): g/cm2 (0.900) / T-score (-1.1) / Z-score (0.7) Findings are suggestive of osteopenia with a low fracture risk. Left Femur Total: g/cm2 (0.945) / T-score (0.0) / Z-score (1.3) Left Femoral Neck: g/cm2 (0.667) / T-score (-1.6) / Z-score (-0.1) Right Femur Total: g/cm2 (0.965) / T-score (0.2) / Z-score (1.4) Right Femoral Neck: g/cm2 (0.760) / T-score (-0.8) / Z-score (0.7) The T-Scores on the most recent prior examination were: Lumbar Spine (L1-L4): There has been worsening of bone density since the previous examination. Left Femur Total: which represents an improvement of 7.2%. Right Femur Total: which represents an improvement of 7%. BD/Dexa Bone Density Study IMPRESSION: The patient is considered osteopenic as outlined below according to World [place] Organization (WHO) criteria with a moderate fracture risk. There has been worsening of bone density since the previous examination. Reference Information: The T-score is the number of standard deviations above or below the standard which is normal for young adults at their peak bone mineral density. The World Health Organization (WHO) interprets the T-scores as follows: Above -1 Normal bone density Between -1 and -2.5 Osteopenia Equal to / or below -2.5 Osteoporosis As a practical clinical guideline, osteopenia may be graded as follows: Mild -1 through -1.5 Moderate -1.6 through -2.0 Severe -2.1 through -2.4 The Z-score is the number of standard deviations above or below age-matched controls. A Z-score of less than -1.5 would be considered abnormal. References: 1. NIH Osteoporosis and Related Bone Diseases www osteo.org 2. International Society for Clinical Densitometry www iscd.org 3. National Osteoporosis Foundation www nof.org Electronically Signed: Nick Vee MD at 10:12 EDT ,
== END | disposition home or self-care (01) ==
PROVIDERS: PCP Family Medicine; Referring Provider Nurse Practitioner Family; Visit Provider Nurse Practitioner Family
DX: Z12.31 Encounter for screening mammogram for malignant neoplasm of breast (principal); Z78.0 Asymptomatic menopausal state
CPT/HCPCS: 77063; 77067; 77080

== ENCOUNTER → 2024-05-04 | Outpatient (CLI) | payer OTHER, SELFPAY ==
[2024-05-04 10:44] LABS: Anion Gap 8 (5-15); BUN 14 mg/dL (7-18); BUN/Creat Ratio 14.9 RATIO (10-20); Calcium,Total 9.1 mg/dL (8.5-10.1); Chloride 103 mmol/L (98-107); Cholesterol 180 mg/dL (200); Creatinine, Serum 0.94 mg/dL (0.55-1.02); EST Glomerular Filtration Rate 64 mL/min (>60); Est Glom Filt Rate - Afr Amer 77 mL/min (>60); Glucose 142 mg/dL (74-106); High Density Lipoprotein 60 mg/dL; Potassium 3.9 mmol/L (3.5-5.1); Sodium Level 139 mmol/L (136-145); Triglycerides 84 mg/dL; Very Low Density Lipoprotein 17 mg/dL (5-40)
== END | disposition home or self-care (01) ==
LOC: MFPLAB 08:20
PROVIDERS: PCP Family Medicine; Visit Provider Family Medicine
DX: E11.9 Type 2 diabetes mellitus without complications (principal)
CPT/HCPCS: 36415; 80048; 80061

== ENCOUNTER → 2024-10-31 | Outpatient (CLI) | payer OTHER, SELFPAY ==
[2024-10-31 15:35] LABS: Absolute Lymphocyte Count 1.87 X10^3/uL (0.83-4.51); Absolute Neutrophil Count 4.2 X10^3/uL (2.0-7.7); Basophil# 0.07 X10^3/uL; Eosinophil# 0.29 X10^3/uL; Eosinophils% 4.1 % (0-5); Hematocrit 41.1 % (37-47); Hemoglobin 13.1 g/dL (12.0-15.0); Lymphocyte # 1.87 X10^3/ul (0.83-4.51); Lymphocyte % 26.6 % (19-41); Mean Corp Hgb Conc 31.9 g/dL (32-36); Mean Corpuscular Hgb 29.5 pg (27.0-32.0); Mean Corpuscular Volume 92.6 fL (81-99); Mean Platelet Vol. 10.4 fl (6.2-12.0); Monocyte# 0.62 X10^3/uL; Monocyte% 8.8 % (0-10); NRBC Flagged by Analyzer 0 % (0-5); Neutrophil # 4.18 X10^3/uL (2.7-7.7); Neutrophil % 59.4 % (47-70); Platelet Count 323 K/mm3 (150-450); RBC Distribution Width CV 13.2 % (11.6-14.6); RBC Distribution Width SD 44.7 fl (35.1-43.9); Red Blood Count 4.44 M/mm3 (4.2-5.4)
[2024-10-31 16:22] LABS: ALB/GLOB Ratio 1.1 RATIO (0.9-2.4); AST(SGOT) 23 U/L (15-37); Alanine Aminotransfer ALT/SGPT 33 U/L (13-56); Albumin, Serum 4.1 g/dL (3.2-5.0); Alkaline Phosphatase 90 U/L (45-117); Anion Gap 10 (5-15); BUN 11 mg/dL (7-18); BUN/Creat Ratio 13.1 RATIO (10-20); Calcium,Total 9.9 mg/dL (8.5-10.1); Chloride 100 mmol/L (98-107); Creatinine, Serum 0.84 mg/dL (0.55-1.02); EST Glomerular Filtration Rate 72 mL/min (>60); Est Glom Filt Rate - Afr Amer 87 mL/min (>60); Globulin 3.7 g/dL (2.2-4.2); Glucose 100 mg/dL (74-106); Magnesium 2.2 mg/dL (1.6-2.6); Potassium 4.2 mmol/L (3.5-5.1); Protein, Total 7.8 g/dL (6.4-8.2); Sodium Level 136 mmol/L (136-145)
== END | disposition home or self-care (01) ==
LOC: MFPLAB 11:58
PROVIDERS: PCP Family Medicine; Referring Provider Family Medicine; Visit Provider Family Medicine
DX: R53.83 Other fatigue (principal)
CPT/HCPCS: 36415; 80053; 83735; 84443; 85025

== ENCOUNTER → 2024-11-19 | Outpatient (CLI) | payer OTHER, SELFPAY ==
--- NOTE | 2024-11-19 11:55 | STRESSREP ---
Stress Test Report Date: [11/19/2024] Procedure: Exercise tolerance test/imaging study Indications: Fatigue Consent: Per the patient Procedure: The patient exercised on a Rod protocol for 6 minutes achieving a peak heart rate of 171 bpm (110% predicted maximal heart rate) with a peak blood pressure 184/82 mmHg and a peak MET capacity of 7 METs. The baseline ECG demonstrated normal sinus rhythm. The peak exercise ECG demonstrated sinus tachycardia with no significant ischemic changes. EKG during recovery revealed no significant ischemic changes [There were no cardiac dysrhythmias pretest, during exercise, or recovery]. The functional capacity was considered normal for age. There was [no complaint of chest discomfort during exercise or recovery]. The examination was discontinued secondary to achieving target heart rate. Impression: 1. Technically adequate (percent predicted maximal heart rate greater than 85%) exercise tolerance test 2. Stress test is negative for exercise-induced EKG changes of ischemia 3. The test test is negative for exercise-induced chest pain 4. Functional capacity is normal for age 5. Nuclear images pending Myocardial perfusion imaging study: Technique: The patient was injected with 14.1 mCi of technetium 99m Cardiolite and subsequently rest SPECT Cardiolite nuclear imaging was obtained in the horizontal long, vertical long, and short axis views. The patient exercised on a Rod protocol. Please see above for details. The patient was injected with 44.6 mCi of technetium 99m Cardiolite and subsequently stress SPECT Cardiolite nuclear imaging was obtained in the horizontal long, vertical long, and short axis views. A gated Cardiolite study at peak stress was obtained. Interpretation: Rest and stress SPECT Cardiolite nuclear imaging status post realignment, normalization, and attenuation correction, demonstrates no evidence of significant ischemia or infarction. The gated Cardiolite study demonstrates no significant regional wall motion abnormalities. The reported LVEF is greater than 70%. Impression: 1. There is no evidence of significant ischemia or infarction. 2. The gated Cardiolite study reports an LVEF of greater than 70%. This note was generated with [employer] software. It may contain incorrect words, spelling, and punctuation that were not noted in checking the note before signing.
== END | disposition home or self-care (01) ==
PROVIDERS: PCP Family Medicine; Referring Provider Family Medicine; Visit Provider Family Medicine
DX: R53.83 Other fatigue (principal)
CPT/HCPCS: 78452; 93017; A9500; A4216

== ENCOUNTER → 2025-02-01 | Outpatient (CLI) | payer OTHER, SELFPAY ==
[2025-02-01 11:06] LABS: Cholesterol 187 mg/dL (<=200); High Density Lipoprotein 49 mg/dL; Low Density Lipoprotein Calc. 128 mg/dL; Triglycerides 52 mg/dL; Very Low Density Lipoprotein 10 mg/dL (5-40); cholesterol:hdl ratio screen 3.84
[2025-02-01 11:37] LABS: BUN 12 mg/dL (4-19); BUN/Creat Ratio 15.3 RATIO (10-20); Calcium,Total 9.6 mg/dL (7.6-11.0); Chloride 99 mmol/L (98-108); EST Glomerular Filtration Rate 82 (>60); Glucose 101 mg/dL (70-99); Potassium 3.8 mmol/L (3.3-5.1); Sodium Level 138 mmol/L (133-145)
[2025-02-01 11:43] LABS: Anion Gap 13 (5-15); Carbon Dioxide 26.2 mmol/L (21.0-32.0)
[2025-02-01 11:57] LABS: Microalbumin,Random Urine < 12.0 mg/L (NO RANGE EST.); Microalbumin:Creatinine Ratio UNABLE TO CALCULATE mg/g CRE
== END | disposition home or self-care (01) ==
LOC: MTLAB 07:46
PROVIDERS: PCP Family Medicine; Referring Provider Family Medicine; Visit Provider Family Medicine
DX: E11.9 Type 2 diabetes mellitus without complications (principal)
CPT/HCPCS: 36415; 80048; 80061; 82043; 82570

== ENCOUNTER → 2025-05-07 | Outpatient (CLI) | payer OTHER, SELFPAY ==
--- NOTE | 2025-05-07 07:42 | BI_ITS ---
EXAM: SCRN MAMM (CAD)W/JOSEPH BILAT DATE: 05/07/2025 CLINICAL HISTORY: F, Age 65 y/o , SCREENING No family history. TECHNIQUE: SCRN MAMM (CAD)W/JOSEPH BILAT COMPARISON: Prior exam(s) dated May 02, 2024.. FINDINGS: TISSUE DENSITY: The breasts are almost entirely fatty. Bilateral Breast Mammographic Findings: No significant masses, calcifications or other abnormalities are identified. No suspicious masses, areas of developing architectural distortion, or suspicious calcifications. There has been no significant interval change. BI/SCRN MAMM (CAD)W/JOSEPH BILAT IMPRESSION: Stable examination. OVERALL FINAL ASSESSMENT BI-RADS 1: NEGATIVE. RECOMMENDATION: Routine annual follow-up in 1 Year A letter with findings and recommendations will be mailed to the patient. Reading Location: [id number]
== END | disposition home or self-care (01) ==
LOC: OPBI 07:42
PROVIDERS: PCP Family Medicine; Referring Provider Nurse Practitioner Family; Visit Provider Nurse Practitioner Family
DX: Z12.31 Encounter for screening mammogram for malignant neoplasm of breast (principal)
CPT/HCPCS: 77063; 77067

== ENCOUNTER → 2025-08-01 | Outpatient (CLI) | payer OTHER, SELFPAY ==
--- OUTSIDE RECORDS SUMMARY | 2025-08-01 08:49 | XMS RPT_ITS | CCD ---
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 Gil Primary Care Provider [phone] Gretchen ANNA, Dr. Gil Attending Provider [phone] Gretchen ANNA, Dr. Gil Referring Provider [phone] Gretchen ANNA, Dr. Gil Other Provider Judy ANNA, Dr. Manzo Attending Provider Gretchen ANNA, Dr. Gil Primary Care Provider [phone] Gretchen ANNA, Dr. Gil Attending Provider [phone] Gretchen ANNA, Dr. Gil Referring Provider [phone] Minal ANNA, Dr. Blanton Attending Provider Radha CEREAL CHEMIST-C, Coretta Attending Provider Radha CEREAL CHEMIST-C, Coretta Referring Provider Jeffery Godinez Referring Unavailable Gretchen, Jeffery Attending Unavailable Jeffery Godinez Primary Care Unavailable Gretchen, Jeffery Primary Care Unavailable Radha CEREAL CHEMIST, Coretta Referring Unavailable Radha CEREAL CHEMIST, Coretta Attending Unavailable Gretchen, Jeffery Referring Unavailable Gretchen, Jeffery Attending Unavailable Jeffery Godinez Primary Care Unavailable Jeffery Godinez Referring Unavailable Anais Kim Attending Unavailabl e Jeffery Godinez Consulting Unavailable Gretchen, Jeffery Primary Care Unavailable Godinez, Jeffery Referring Unavailable Godinez, Jeffery Attending Unavailable Gretchen, Jeffery Primary Care Unavailable Allergies Allergy Classification Reported Allergen(s) Allergy Type Date of Onset Reaction(s) Facility (1 source) Penicillin; Translations: [PENICILLIN] Drug Allergy 06-07-[address] [place] [address] Repository (1 source) Sulfamethoxazole / Trimethoprim; Translations: [SULFAMETHOXAZOLE-TR IMETHOPRIM] Drug Allergy 06-07-20 17 [facility] Repository (9 sources) Penicillins Allergy to substance 08-02-20 19 Unknown, PT UNSURE OF REACTION [facility] (9 sources) Sulfamethoxazole Drug Allergy 08-02-20 19 muscle pain [facility] (9 sources) Trimethoprim Drug Allergy 08-02-20 19 muscle pain [facility] (3 sources) Nitrofurantoin Drug Allergy 04-23-20 Swelling [facility] Comment on above: Swelling of jaw (1 source) Nitrofurantoin Drug Allergy 04-23-20 [facility] Repository (1 source) Penicillins Drug allergy (disorder) 04-23-20 [facility] Repository (1 source) Sulfamethoxazole Drug Allergy 04-23-20 [facility] Repository (1 source) Trimethoprim Drug Allergy 04-23-20 [facility] Repository Medications Current Medications Medication Drug Class(es) Dates Sig (Normalized) Sig (Original) ascorbic acid 1000 mg oral tablet (9 sources) Vitamin C Start: 9 take 1 tablet by mouth once daily Ascorbic Acid (Vitamin C) 1,000 MG tablet Active 1000 mg PO DAILY April 05, 2019 12:00am aspirin 81 mg delayed release oral tablet (9 sources) Platelet Aggregation Inhibitor, Nonsteroidal Anti-inflammatory Drug Start: 9 take 1 tablet by mouth once daily Aspirin 81 MG tablet,delayed release (DR/EC) Active 81 mg PO DAILY April 05, 2019 12:00am calcium carbonate 600 mg / cholecalciferol 125 unt oral tablet (3 sources) Vitamin D Start: 9 Calcium Carbonate-Vitamin D3 Active 1 EACH PO DAILY April 05, 2019 12:00am Calcium Carbonate / vitamin D3 (3 sources) Start: 9 Calcium Carbonate-Vitamin D3 Active 1 EACH PO DAILY April 04, 2019 11:00pm Calcium Carbonate-Vitamin D3 1 EACH tablet (3 sources) Start: 9 Calcium Carbonate-Vitamin D3 1 EACH tablet Active 1 NMA PO DAILY April 05, 2019 12:00am cholecalciferol 0.025 mg oral tablet (9 sources) Vitamin D Start: 9 take 1 tablet by mouth twice daily Cholecalciferol (Vitamin D3) 1,000 UNIT tablet Active 1000 U PO TWICE A DAY April 05, 2019 12:00am cloNIDine hydrochloride 0.1 mg oral tablet (3 sources) Central alpha-2 Adrenergic Agonist Start: 4 take 0.05 mg by mouth twice daily Clonidine Hcl 0.1 mg tablet Active 0.05 mg PO TWICE A DAY March 23, 2024 12:00am Cran-C-B.Coag-Fos-L.Acid -L.Rha (Probiotic Plus And Cranberry) 250-30-39.5 mg capsule (3 sources) Start: 4 Cran-C-B.Coag-Fos-L .Acid-L.Rha (Probiotic Plus And Cranberry) 250-30-39.5 mg capsule Active NMA PO .QD April 19, 2024 12:00am D-Mannose (3 sources) Start: 4 take 1 capsule by mouth once daily D-Mannose 500 mg capsule Active 500 mg PO .QD April 19, 2024 12:00am diphenhydrAMINE hydrochloride 25 mg oral capsule (3 sources) Histamine-1 Receptor Antagonist Start: 4 take 1 capsule by mouth once daily Diphenhydramine Hcl (Aler-Cap) 25 mg capsule Active 25 mg PO DAILY April 18, 2024 12:00am docusate sodium 50 mg / sennosides, senior living 8.6 mg oral tablet (3 sources) Start: 4 Sennosides-Docusate Sodium (Lax Stool Softener With Senna) 8.6-50 mg tablet Active 1 NMA PO AT BEDTIME March 23, 2024 12:00am estrogens, conjugated (senior living) 0.625 mg/ml vaginal cream (3 sources) Estrogen Start: 4 Conjugated Estrogens 0.625 mg/gram cream Active 0.625 mg VAGINAL DAILY March 23, 2024 12:00am off 5 days; repeat cycle hydroCHLOROthiazide 25 mg / lisinopril 20 mg oral tablet (9 sources) Thiazide Diuretic, Angiotensin Converting Enzyme Inhibitor Start: 9 Lisinopril-Hydrochl orothiazide 20-25 mg tablet Active 1 {tbl} PO DAILY July 20, 2019 1:00am Start: 07-20-2019 take 1 tablet by williams once daily Lisinopril-Hydrochlorothiazide Active 1 TABLET PO DAILY July 20, 2019 12:00am lisinopril 20 mg oral tablet (12 sources) Angiotensin Converting Enzyme Inhibitor Start: 04-18-2024 take 1 tablet by mouth at bedtime Lisinopril 20 mg tablet Active 20 mg PO AT BEDTIME April 18, 2024 12:00am Start: 04-05-2019 End: 07-20-2019 take 1 tablet by mouth at bedtime Lisinopril 10 MG tablet Discontinued 10 mg PO AT BEDTIME April 05, 2019 12:00am July 20, 2019 9:39am metFORMIN hydrochloride 500 mg oral tablet (3 sources) Biguanide Start: 03-23-2024 take 1 tablet by mouth once daily Metformin 500 mg tablet Active 500 mg PO DAILY March 23, 2024 12:00am metoprolol tartrate 50 mg oral tablet (9 sources) beta-Adrenergic Chuy Start: 04-05-2019 take 1 tablet by mouth twice daily Metoprolol Tartrate 50 MG tablet Active 50 mg PO TWICE A DAY April 05, 2019 12:00am Multivitamin With Minerals (6 sources) Start: 04-05-2019 Multivitamin W ith Minerals Active 1 EACH PO DAILY April 05, 2019 12:00am Start: 04-05-2019 Multivitamin W ith Minerals Active 1 EACH PO DAILY April 04, 2019 11:00pm Multivitamin With Minerals 1 EACH tablet (3 sources) Start: 04-05-2019 take 1 tablet by mouth once daily Multivitamin With Minerals 1 EACH tablet Active 1 NMA PO DAILY April 05, 2019 12:00am omeprazole 20 mg delayed release oral capsule (9 sources) Proton Pump Inhibitor Start: 04-05-2019 take 1 capsule by mouth once daily Omeprazole 20 MG capsule Active 20 mg PO DAILY April 05, 2019 12:00am Completed/Discontinued Medications Medication Drug Class(es) Dates Sig (Normalized) Sig (Original) amLODIPine 10 mg oral tablet (9 sources) Dihydropyridine Calcium Channel Chuy Start: 04-05-2019 End: 07-20-2019 take 1 tablet by mouth once daily Amlodipine 10 MG tablet Discontinued 10 mg PO DAILY April 05, 2019 12:00am July 20, 2019 9:39am cefdinir 300 mg oral capsule (6 sources) Cephalosporin Antibacterial Start: 07-21-2023 End: 04-18-2024 take 1 capsule by mouth twice daily Cefdinir 300 mg capsule Discontinued 300 mg PO TWICE A DAY 14 0 July 21, 2023 1:00am April 18, 2024 12:14pm cephalexin 250 mg oral capsule (9 sources) Cephalosporin Antibacterial Start: 04-05-2019 End: 03-23-2024 take 1 capsule by mouth at bedtime Cephalexin 250 MG capsule Discontinued 250 mg PO AT BEDTIME April 05, 2019 12:00am March 23, 2024 2:02pm metroNIDAZOLE 500 mg oral tablet (6 sources) Nitroimidazole Antimicrobial Start: 07-21-2023 End: 04-18-2024 take 1 tablet by mouth every eight hours Metronidazole 500 mg tablet Discontinued 500 mg PO Q8H 21 7 0 July 21, 2023 1:00am April 18, 2024 12:16pm sennosides, senior living 8.6 mg oral tablet (9 sources) Start: 07-20-2019 End: 03-23-2024 take 1 tablet by mouth twice daily Sennosides (Senna) 8.6 mg tablet Discontinued 8.6 mg PO TWICE A DAY July 20, 2019 1:00am March 23, 2024 2:03pm Problems Active Problems Problem Classification Problem Date Documented Date Episodic/Chronic Diabetes mellitus without complication (1 source) Type 2 diabetes mellitus without complications; Translations: [Type 2 diabetes mellitus without complications] Onset: 02-06-2025 Chronic Diverticulosis and diverticulitis (6 sources) Diverticulitis of large intestine; Translations: [Diverticulitis of large intestine without perforation or abscess without bleeding] 07-21-2023 Chronic Other screening for suspected conditions (not mental disorders or infectious disease) (4 sources) Patient encounter status; Translations: [Encounter for screening for malignant neoplasm of colon] Onset: 05-15-2025 03-23-2024 Episodic Thyroid disorders (9 sources) Multinodular goiter; Translations: [Nontoxic multinodular goiter] 07-20-2019 Chronic Past or Other Problems Problem Classification Problem Date Documented Da te Episodic/Chronic Malaise and fatigue (2 sources) Other fatigue; Translations: [Other fatigue] Onset: 11-28-2024 Episodic Results Test Name Value Interpretation Reference Range Facility Breast imaging reportOrdered By: Nick Vee on 05-07-2025 Study report [facility] Imaging Services [address] [place], [place] [id number] SCRN MAMM (CAD)W/JOSEPH BILAT MR#: [id number] Acct: [id number] Name: FALGUNI OSBORNE Rep #: [id number] : 1960 F 65 From: Damir Vee MD PCP: Dr. Jeffery Godinez MD Status: REG C LI Study:SCRN MAMM (CAD)W/JOSEPH BILAT Date of Exa m: 05/07/25 Exam# [id number] Ordering Dr: Scotty Garcia NP CEREAL CHEMIST-C EXAM: SCRN MAMM (CAD)W/JOSEPH BILAT DATE: 05/07/2025 CLINICAL HISTORY: F, Age 65 y/o , SCREENING No family history. TECHNIQUE: SCRN MAMM (CAD)W/JOSEPH BILAT COMPARISON: Prior exam(s) dated May 02, 2024.. FINDINGS: TISSUE DENSITY: The breasts are almost entirely fatty. Bilateral Breast Mammographic Findings: No significant masses, calcifications or other abnormalities are identified. No suspicious masses, areas of developing architectural distortion, or suspicious calcifications. There has been no significant interval change. BI/SCRN MAMM (CAD)W/JOSEPH BILAT IMPRESSION: Stable examination. OVERALL FINAL ASSESSMENT BI-RADS 1: NEGATIVE. RECOMMENDATION: Routine annual follow-up in 1 Year A letter with findings and recommendations will be mailed to the patient. Reading Location: [id number] CC: CEREAL CHEMIST-Shikha Garcia; Dr. Jeffery Godinez MD ~ Superior Court Judge: Signed [facility] SCRN MAMM (CAD)W/JOSEPH BILATo n 05-07-2025 SCRN MAMM (CAD)W/JOSEPH BILAT [facility] Imaging Services [address] [place] [address] SCRN MAMM (CAD)W/JOSEPH BILAT MR#: [id number] Acct: [id number] Name: FALGUNI OSBORNE Rep #: [id number] : 1960 F 65 From: Nick diaz MD PCP: Dr. Jeffery Godinez MD Status: REG CLI Study: SCRN MAMM (CAD)W/JOSEPH BILAT Date of Exam: 04/13 03/06 Exam# [id number] Ordering Dr: Coretta Garcia NP CEREAL CHEMIST-C EXAM: SCRN MAMM (CAD)W/JOSEPH BILAT DATE: 05/07/2025 CLINICAL HISTORY: F, Age 65 y/o , SCREENING No family history. TECHNIQUE: SCRN MAMM (CAD)W/JOSEPH BILAT COMPARISON: Prior exam(s) dated May 02, 2024.. FINDINGS: TISSUE DENSITY: The breasts are almost entirely fatty. Bilateral Breast Mammographic Findings: No significant masses, calcifications or other abnormalities are identified. No suspicious masses, areas of developing architectural distortion, or suspicious calcifications. There has been no significant interval change. BI/SCRN MAMM (CAD)W/JOSEPH BILAT IMPRESSION: Stable examination. OVERALL FINAL ASSESSMENT BI-RADS 1: NEGATIVE. RECOMMENDATION: Routine annual follow-up in 1 Year A letter with findings and recommendations will be mailed to the patient. Reading Location: [id number] CC: CEREAL CHEMIST-Shikha Garcia; Dr. Jeffery Godinez MD Superior Court Judge: Signed Normal [facility] Anion gap in Serum or Plasma Ordered By: Jeffery Goidnez on 02-01-2025 Anion gap [Moles/Vol] 13 mmol/L 5- [facility] Comment on above: Previous reported re sult: 14 Edited by: SUBHASH on 02/01/25:1143 AMENDED REPORT 02/01/25 1143 GAP previously reported as: 14 BUN/creatinine ratioOrdered By: Jeffery Godinez on 02-01-2025 Urea nitrogen/Creatinine [Mass ratio] 15.3 mg/mg 10- [facility] Basic Metabolic Profile (BMP )on 02-01-2025 CO2 [Moles/Vol] 26.2 mmol/L Normal 21.0-32.0 [facility] Comment on above: Result Comment: AMENDED REPORT 02/01/25 1143 CO2 previously reported as: 25.2 mmol/L Performed By: #### L 500.4100, L500.2500, L502.0250 #### [facility] Laboratory [facility] [address] [place], [place], [id number] GAP 13 Normal 5-15 [facility] Comment on above: Result Comment: AMENDED REPORT 02/01/25 1143 GAP previously reported as: 14 Performed By: #### L 500.4100, L500.2500, L502.0250 #### [facility] Laboratory [address] [place], [place], [id number] Calculated very low density lipoprotein (VLDL) cholesterol measurementOrdered By: Jeffery Godinez on 02-01-2025 Calculated very low density lipoprotein (VLDL) cholesterol measurement 10 mg/dL 5-40 [facility] Carbon dioxide, total [Moles /volume] in Central venous bloodOrdered By: Jeffery Godinez on 02-01-2025 CO2 [Moles/Vol] 26.2 mmol/L 21.0-32.0 [facility] Comment on above: Previous reported re sult: 25.2 mmol/LEdited by: SUBHASH on 02/01/25:1143 AMENDED REPORT 02/01/25 1143 CO2 previously reported as: 25.2 mmol/L Chloride assayOrdered By: Celio Godinez on 02-01-2025 Chloride [Moles/Vol] 99 mmol/L 98-108 [facility] Glomerular filtration rate ( GFR) estimation/1.73 sq m using serum, plasma, or whole bOrdered By: Jeffery Godinez on 02-01-2025 GFR/1.73 sq M.predicted among non-blacks MDRD (S/P/Bld) [Vol rate/Area] 82 mL/min/{1.73_m2} >60 [facility] Comment on above: mL/min/1.73m2 CKD-EP I Creatinine Equation (2020) LDL calc ser/plasOrdered By: Jeffery Godinez on 02-01-2025 Cholesterol in LDL [Mass/Vol] 128 mg/dL [facility] Comment on above: Qgahtngfje=796-917 m g/dL & Higher Zqeg=241 mg/dL or greater Lipid Profileon 02-01-2025 CHOL:HDL 3.84 Normal [facility] Comment on above: Performed By: #### L 500.4100, L500.2500, L502.0250 #### [facility] Laboratory [address] [place], [address] Cholesterol [Mass/Vol] 187 mg/dL Normal <=200 [facility] Comment on above: Result Comment: Chol esterol level, Desirable <200 mg/dL Borderline high cholesterol 200-239 mg/dL High cholesterol >=240 mg/dL Recommendations of the NCEP Adult Treatment Panel for the following risk-cutoff thresholds for the [place] population. Performed By: #### L 500.4100, L500.2500, L502.0250 #### [facility] Laboratory [address] [place], [address] Cholesterol in HDL [Mass/Vol] 49 mg/dL Normal [facility] Comment on above: Result Comment: [place] on[place] Cholesterol Education Program (NCEP) guidelines: <40 mg/dL: Low HDL-cholesterol (major risk factor for CHD) >= 60 mg/dL: High HDL-cholesterol (negative risk factor for CHD) HDL-cholesterol is affected by a number of factors, e.g. smoking, exercise, hormones, sex and age. Performed By: #### L 500.4100, L500.2500, L502.0250 #### [facility] Laboratory [address] [place], [address] Cholesterol in LDL [Mass/Vol] 128 mg/dL Normal [facility] Comment on above: Result Comment: Bord vinudi=404-477 mg/dL Higher Ozcl=783 mg/dL or greater Performed By: #### L 500.4100, L500.2500, L502.0250 #### [facility] Laboratory [address] [place], [address] Cholesterol in VLDL [Mass/Vol] 10 mg/dL Normal 5-40 [facility] Comment on above: Performed By: #### L 500.4100, L500.2500, L502.0250 #### [facility] Laboratory [address] [place], [address] Triglyceride [Mass/Vol] 52 mg/dL Normal [facility] Comment on above: Result Comment: The drugs N-Acetylcysteine and Metamizole may falsely depress this assay. Normal range: <150 mg/dL Borderline High: 150-199 mg/dL High: 200-499 mg/dL Very High: >500 mg/dL Performed By: #### L 500.4100, L500.2500, L502.0250 #### [facility] Laboratory [address] [place], [address] Microalb:Creat Ratio,Random URon 02-01-2025 Creatinine [Mass/Vol] 126.00 mg/dL Normal 28.00-217.00 [facility] Comment on above: Performed By: #### L 500.4100, L500.2500, L502.0250 #### [facility] Laboratory [address] [place], [address] MALB:CREAT UNABLE TO CALCULATE Normal [facility] Comment on above: Performed By: #### L 500.4100, L500.2500, L502.0250 #### [facility] Laboratory [address] [place], [address] MICROALBUMIN,UR < 12.0 Normal NO RANGE EST. [facility] Comment on above: Performed By: #### L 500.4100, L500.2500, L502.0250 #### [facility] Laboratory [address] [place], [address] Microalbumin/creat ratio urO rdered By: Jeffery Godinez on 02-01-2025 Urine microalbumin/creatinine ratio measurement UNABLE TO CALCULATE mg/g CRE [facility] Potassium measurement (mass/ volume)Ordered By: Jeffery Godinez on 02-01-2025 Potassium (Unsp spec) [Mass/Vol] 3.8 mmol/L 3.3-5.1 [facility] Random urine creatinine carol urement (mass/volume)Ordered By: Jeffery Godinez on 02-01-2025 Creatinine Unsp time (U) [Mass/Vol] 126.00 mg/dL 28.00-217.00 [facility] Screening total cholesterol/ high density lipoprotein (HDL) cholesterol ratioOrdered By: Jeffery Godinez on 02-01-2025 Cholesterol.total/Choles terol in HDL [Mass ratio] 3.84 {ratio} [facility] Serum creatinine measurement (mass/volume)Ordered By: Jeffery Godinez on 02-01-2025 Creatinine [Mass/Vol] 0.80 mg/dL 0.70-1.20 [facility] Serum glucose measurement (m ass/volume)Ordered By: Jeffery Godinez on 02-01-2025 Glucose [Mass/Vol] 101 mg/dL High 70-99 [facility] Serum or plasma calcium carol urement (mass/volume)Ordered By: Jeffery Godinez on 02-01-2025 Calcium [Mass/Vol] 9.6 mg/dL 7.6-11.0 [facility] Serum or plasma cholesterol in HDL measurement (mass/volume)Ordered By: Jeffery Godinez on 02-01-2025 Cholesterol in HDL [Mass/Vol] 49 mg/dL >40 [facility] Comment on above: National Cholesterol Education Program (NCEP) guidelines:<40 mg/dL: Low HDL-cholesterol (major risk factor for CHD)>= 60 mg/dL: High HDL-cholesterol (negative risk factor for CHD)HDL-cholesterol is affected by a number of factors, e.g. smoking, exercise, hormones, sex and age. Serum or plasma cholesterol measurement (mass/volume)Ordered By: Jeffery Godinez on 02-01-2025 Cholesterol [Mass/Vol] 187 mg/dL <201 [facility] Comment on above: Cholesterol level, D esirable <200 mg/dLBorderline high cholesterol 200-239 mg/dLHigh cholesterol >=240 mg/dLRecommendations of the NCEP Adult Treatment Panel for the following risk-cutoff thresholds for the [place] population. Serum or plasma urea nitroge n measurement (mass/volume)Ordered By: Jeffery Godinez on 02-01-2025 Urea nitrogen [Mass/Vol] 12 mg/dL 4-19 [facility] Sodium levelOrdered By: Jeffery Godinez on 02-01-2025 Sodium [Moles/Vol] 138 mmol/L 133-145 [facility] Triglycerides measurementOrd ered By: Jeffery Godinez on 02-01-2025 Triglyceride [Mass/Vol] 52 mg/dL <199 [facility] Comment on above: The drugs N-Acetylcy steine and Metamizole may falsely depress this assay. Normal range: <150 mg/dLBorderline High: 150-199 mg/dLHigh: 200-499 mg/dLVery High: >500 mg/dL Urine albumin measurement wi th detection limit of 20 mg/L or less (mass/volume)Ordered By: Jeffery Godinez on 02-01-2025 Albumin DL <= 20 mg/L (U) [Mass/Vol] < 12.0 mg/L NO RANGE EST. [facility] Cardiovascular stress test r eportOrdered By: Anais Kim on 11-19-2024 Study report [facility] Cardiovascular Services [address] [place] [address] MR#: [id number] Acct: [id number] Name: FALGUNI OSBORNE Rep #: [id number] : 1960 64 From: Anais dobbs MD Primary Care: Dr. Jeffery Godinez MD Status : REG CLI Referring Dr: eJffery Godinez MD Sex: F C Stress Test Report Date: [11/19/2024] Procedure: Exercise tolerance test/imaging study Indications: Fatigue Consent: Per the patient Procedure: The patient exercised on a Rod protocol for 6 minutes achieving a peak heart rate of 171 bpm (110% predicted maximal heart rate) with a peak blood pressure 184/82 mmHg and a peak MET capacity of 7 METs. The baseline ECG demonstrated normal sinus rhythm. The peak exercise ECG demonstrated sinus tachycardia with no significant ischemic changes. EKG during recovery revealed no significant ischemic changes [There were no cardiac dysrhythmias pretest, during exercise, or recovery]. The functional capacity was considered normal for age. There was [no complaint of chest discomfort during exercise or recovery]. The examination was discontinued secondary to achieving target heart rate. Impression: 1. Technically adequate (percent predicted maximal heart rate greater than 85%)exercise tolerance test 2. Stress test is negative for exercise-induced EKG changes of ischemia 3. The test test is negative for exercise-induced chest pain 4. Functional capacity is normal for age 5. Nuclear images pending Myocardial perfusion imaging study: Technique: The patient was injected with 14.1 mCi of technetium 99m Cardiolite and subsequently rest SPECT Cardiolite nuclear imaging was obtained in the horizontal long, vertical long, and short axis views. The patient exercised on aBruce protocol. Please see above for details. The patient was injected with 44.6 mCi of technetium 99m Cardiolite and subsequently stress SPECT Cardiolite nuclear imaging was obtained in the horizontal long, vertical long, and short axis views. A gated Cardiolite study at peak stress was obtained. Interpretation: Rest and stress SPECT Cardiolite nuclear imaging status post realignment, normalization, and attenuation correction, demonstrates no evidence of significant ischemia or infarction. The gated Cardiolite study demonstrates no significant regional wall motion abnormalities. The reported LVEF is greater than 70%. Impression: 1. There is no evidence of significant ischemia or infarction. 2. The gated Cardiolite study reports an LVEF of greater than 70%. This note was generated with [employer] appation software. It may contain incorrectwords, spelling, and punctuation that were not noted in checking the note beforesigning. 11/19/24 1214 Date _ Anais Kim MD CC: Dr. Jeffery Godinez MD ~ Date Dictated: 11/19/241154 Date Transcribed: 11/19/241154 Superior [address] Judge: NN Signed [facility] Work Phone: Stress Reporton 11-19-2024 Stress Report [facility] [address] [place] [id number] MR#: [id number] Acct: [id number] Name: FALGUNI OSBORNE Rep #: [id number] : 1960 64 From: Anais Kim MD Primary Care: Dr. Jeffery Godinez MD Status: REG CLI Referring Dr: Jeffery Godinez MD Sex: F C Stress Test Report Date: [11/19/2024] Procedure: Exercise tolerance test/imaging study Indications: Fatigue Consent: Per the patient Procedure: The patient exercised on a Rod protocol for 6 minutes achieving a peak heart rate of 171 bpm (110% predicted maximal heart rate) with a peak blood pressure 184/82 mmHg and a peak MET capacity of 7 METs. The baseline ECG demonstrated normal sinus rhythm. The peak exercise ECG demonstrated sinus tachycardia with no significant ischemic changes. EKG during recovery revealed no significant ischemic changes [There were no cardiac dysrhythmias pretest, during exercise, or recovery]. The functional capacity was considered normal for age. There was [no complaint of chest discomfort during exercise or recovery]. The examination was discontinued secondary to achieving target heart rate. Impression: 1. Technically adequate (percent predicted maximal heart rate greater than 85%) exercise tolerance test 2. Stress test is negative for exercise-induced EKG changes of ischemia 3. The test test is negative for exercise-induced chest pain 4. Functional capacity is normal for age 5. Nuclear images pending Myocardial perfusion imaging study: Technique: The patient was injected with 14.1 mCi of technetium 99m Cardiolite and subsequently rest SPECT Cardiolite nuclear imaging was obtained in the horizontal long, vertical long, and short axis views. The patient exercised on a Rod protocol. Please see above for details. The patient was injected with 44.6 mCi of technetium 99m Cardiolite and subsequently stress SPECT Cardiolite nuclear imaging was obtained in the horizontal long, vertical long, and short axis views. A gated Cardiolite study at peak stress was obtained. Interpretation: Rest and stress SPECT Cardiolite nuclear imaging status post realignment, normalization, and attenuation correction, demonstrates no evidence of significant ischemia or infarction. The gated Cardiolite study demonstrates no significant regional wall motion abnormalities. The reported LVEF is greater than 70%. Impression: 1. There is no evidence of significant ischemia or infarction. 2. The gated Cardiolite study reports an LVEF of greater than 70%. This note was generated with Quest appation software. It may contain incorrect words, spelling, and punctuation that were not noted in checking the note before signing. 11/19/24 1214 Date Anais Kim MD CC: Dr. Jeffery Godinez MD Date Dictated: 11/19/24 1155 Date Transcribed: 11/19/241154 [address] Judge: NN Signed Normal [facility] Absolute lymphocyte countOrd ered By: Jeffery Godinez on 10-31-2024 Lymphocytes Auto (Unsp spec) [#/Vol] 1.87 10*3/uL 0.83-4.51 [facility] Absolute neutrophil countOrd ered By: Jeffery Godinez on 10-31-2024 Neutrophils (Bld) [#/Vol] 4.2 10*3/uL 2.0-7.7 [facility] Albumin to globulin ratioOrd ered By: Jeffery Godinez on 10-31-2024 Albumin/Globulin [Mass ratio] 1.1 {ratio} 0.9-2.4 [facility] Automated lymphocyte count a s percentage of total leukocytesOrdered By: Jeffery Godinez on 10-31-2024 Lymphocytes/100 WBC Auto (Unsp spec) 26.6 % 19- [facility] Basophil percentageOrdered B y: Jeffery Godinez on 10-31-2024 Basophils/100 WBC (Bld) 1.0 % 0-1 [facility] Bilirubin, totalOrdered By: Jeffery Godinez on 10-31-2024 Bilirubin [Mass/Vol] 0.50 mg/dL 0.20-1.00 [facility] Comment on above: For patients on eltr ombopag therapy, use of Dimension Ballantine TBIL is not recommended. Blood urea nitrogen (BUN)/cr eatinine ratioOrdered By: Jeffery Godinez on 10-31-2024 Urea nitrogen/Creatinine [Mass ratio] 13.1 mg/mg 10-20 [facility] CBC W/Diff, Automatedon 10-13 Absolute Lymph 1.87 X10 3/uL Normal 0.83-4.51 [facility] Comment on above: Performed By: #### L 500.4050, L501.5200, L100.0100, L501.9520 #### [facility] Laboratory [facility] [place], [address] Absolute Neut 4.2 X10 3/uL Normal 2.0-7.7 [facility] Comment on above: Performed By: #### L 500.4050, L501.5200, L100.0100, [id number] #### [facility] Laboratory [address] [place], [address] Basophils/100 WBC (Bld) 1.0 % Normal 0-1 [facility] Comment on above: Performed By: #### L 500.4050, L501.5200, L100.0100, [id number] #### [facility] Laboratory [address] [place], [address] Eosinophils/100 WBC (Bld) 4.1 % Normal 0-5 [facility] Comment on above: Performed By: #### L 500.4050, L501.5200, L100.0100, [id number] #### [facility] Laboratory [address] [place], [address] Erythrocyte distribution width (RBC) [Ratio] 13.2 % Normal 11.6-14.6 [facility] Comment on above: Performed By: #### L 500.4050, L501.5200, L100.0100, [id number] #### [facility] Laboratory [address] [place], [address] Hematocrit (Bld) [Volume fraction] 41.1 % Normal 37-47 [facility] Comment on above: Performed By: #### L 500.4050, L501.5200, L100.0100, [id number] #### [facility] Laboratory [address] [place], [address] Hemoglobin (Bld) [Mass/Vol] 13.1 g/dL Normal 12.0-15.0 [facility] Comment on above: Performed By: #### L 500.4050, L501.5200, L100.0100, [id number] #### [facility] Laboratory [address] [place], [address] IG% 0.100 Normal 0.0-0.9 [facility] Comment on above: Result Comment: IG% - Immature Granulocytes (promyelocytes, myelocytes and metamyelocytes) > 1% indicates that a LEFT SHIFT is Present. Performed By: #### L 500.4050, L501.5200, L100.0100, L501.9520 #### [facility] Laboratory [address] [place], [address] Lymphocytes/100 WBC (Bld) 26.6 % Normal 19-41 [facility] Comment on above: Performed By: #### L 500.4050, L501.5200, L100.0100, [id number] #### [facility] Laboratory [address] [place], [address] MCH (RBC) [Entitic mass] 29.5 pg Normal 27.0-32.0 [facility] Comment on above: Performed By: #### L 500.4050, L501.5200, L100.0100, L501.9520 #### [facility] Laboratory [address] [place], [address] MCHC (RBC) [Mass/Vol] 31.9 g/dL Low 32-36 [facility] Comment on above: Performed By: #### L 500.4050, L501.5200, L100.0100, [id number] #### [facility] Laboratory [address] [place], [address] MCV (RBC) [Entitic vol] 92.6 fL Normal 81-99 [facility] Comment on above: Performed By: #### L 500.4050, L501.5200, L100.0100, [id number] #### [facility] Laboratory [address] [place], [address] Monocytes/100 WBC (Bld) 8.8 % Normal 0-10 [facility] Comment on above: Performed By: #### L 500.4050, L501.5200, L100.0100, [id number] #### [facility] Laboratory [address] [place], [address] Neutrophils/100 WBC (Bld) 59.4 % Normal 47-70 [facility] Comment on above: Performed By: #### L 500.4050, L501.5200, L100.0100, [id number] #### [facility] Laboratory [address] [place], [address] Nucleated RBC (Bld) [#/Vol] 0 10*3/uL Normal 0-5 [facility] Comment on above: Performed By: #### L 500.4050, L501.5200, L100.0100, [id number] #### [facility] Laboratory [address] [place], [address] Platelet mean volume (Bld) [Entitic vol] 10.4 fL Normal 6.2-12.0 [facility] Comment on above: Performed By: #### L 500.4050, L501.5200, L100.0100, [id number] #### [facility] Laboratory [address] [place], [address] Platelets (Bld) [#/Vol] 323 10*3/uL Normal 150-450 [facility] Comment on above: Performed By: #### L 500.4050, L501.5200, L100.0100, [id number] #### [facility] Laboratory [address] [place], [address] RBC (Bld) [#/Vol] 4.44 10*6/uL Normal 4.2-5.4 [facility] Comment on above: Performed By: #### L 500.4050, L501.5200, L100.0100, [id number] #### [facility] Laboratory [address] [place], [address] RDW SD 44.7 fl High 35.1-43.9 [facility] Comment on above: Performed By: #### L 500.4050, L501.5200, L100.0100, L501.9520 #### [facility] Laboratory [address] [place], [address] WBC (Bld) [#/Vol] 7.0 10*3/uL Normal 4.4-11.0 [facility] Comment on above: Performed By: #### L 500.4050, L501.5200, L100.0100, L501.9520 #### [facility] Laboratory [address] [place], [address] Carbon dioxide measurementOr dered By: Jeffery Godinez on 10-31-2024 CO2 [Moles/Vol] 26.0 mmol/L 21.0-32.0 [facility] Chloride measurementOrdered By: Jeffery Godinez on 10-31-2024 Chloride [Moles/Vol] 100 mmol/L 98-107 [facility] Comprehensive Metabolic Prof ilon 10-31-2024 Albumin [Mass/Vol] 4.1 g/dL Normal 3.2-5.0 [facility] Comment on above: Performed By: #### L 500.4050, L501.5200, L100.0100, L501.9520 #### [facility] Laboratory [address] [place], [address] Albumin/Globulin [Mass ratio] 1.1 {ratio} Normal 0.9-2.4 [facility] Comment on above: Performed By: #### L 500.4050, L501.5200, L100.0100, [id number] #### [facility] Laboratory [address] [place], [address] ALK P 90 U/L Normal 45-117 [facility] Comment on above: Performed By: #### L 500.4050, L501.5200, L100.0100, L501.9520 #### [facility] Laboratory [address] [place], [address] ALT [Catalytic activity/Vol] 33 U/L Normal 13-56 [facility] Comment on above: Performed By: #### L 500.4050, L501.5200, L100.0100, L501.9520 #### [facility] Laboratory [address] [place], [address] AST [Catalytic activity/Vol] 23 U/L Normal 15-37 [facility] Comment on above: Performed By: #### L 500.4050, L501.5200, L100.0100, L501.9520 #### [facility] Laboratory [address] [place], [address] Bilirubin [Mass/Vol] 0.50 mg/dL Normal 0.20-1.00 [facility] Comment on above: Result Comment: For patients on eltrombopag therapy, use of Dimension Ballantine TBIL is not recommended. Performed By: #### L 500.4050, L501.5200, L100.0100, L501.9520 #### [facility] Laboratory [address] [place], [address] BUN/CRE 13.1 RATIO Normal 10-20 [facility] Comment on above: Performed By: #### L 500.4050, L501.5200, L100.0100, L501.9520 #### [facility] Laboratory [address] [place], [address] CA,Total 9.9 mg/dL Normal 8.5-10.1 [facility] Comment on above: Performed By: #### L 500.4050, L501.5200, L100.0100, L501.9520 #### [facility] Laboratory [address] [place], [address] Chloride [Moles/Vol] 100 mmol/L Normal 98-107 [facility] Comment on above: Performed By: #### L 500.4050, L501.5200, L100.0100, L501.9520 #### [facility] Laboratory [address] [place], [address] CO2 [Moles/Vol] 26.0 mmol/L Normal 21.0-32.0 [facility] Comment on above: Performed By: #### L 500.4050, L501.5200, L100.0100, L501.9520 #### [facility] Laboratory [address] [place], [address] Creatinine [Mass/Vol] 0.84 mg/dL Normal 0.55-1.02 [facility] Comment on above: Result Comment: The validity of the calculated GFR GFRAA in patients over 70 years has not been determined. Clinical correlation is essential. Performed By: #### L 500.4050, L501.5200, L100.0100, L501.9520 #### [facility] Laboratory [address] [place], [address] EST GFR - AA 87 mL/min Normal >60 [facility] Comment on above: Result Comment: Afri can Syrian GFR Calc Performed By: #### L 500.4050, L501.5200, L100.0100, L501.9520 #### [facility] Laboratory [address] [place], [address] GAP 10 Normal 5-15 [facility] Comment on above: Performed By: #### L 500.4050, L501.5200, L100.0100, L501.9520 #### [facility] Laboratory [address] [place], [address] GFR/1.73 sq M.predicted among non-blacks MDRD (S/P/Bld) [Vol rate/Area] 72 mL/min/{1.73_m2} Normal >60 [facility] Comment on above: Result Comment: Non- GFR Calc Performed By: #### L 500.4050, L501.5200, L100.0100, L501.9520 #### [facility] Laboratory [address] [place], [address] Globulin (S) [Mass/Vol] 3.7 g/dL Normal 2.2-4.2 [facility] Comment on above: Performed By: #### L 500.4050, L501.5200, L100.0100, L501.9520 #### [facility] Laboratory [address] [place], [address] Glucose [Mass/Vol] 100 mg/dL Normal 74-106 [facility] Comment on above: Result Comment: Fast ing Glucose result from 100 to 125 mg/dL suggests IMPAIRED HOMEOSTASIS per A.D.A. criteria. Performed By: #### L 500.4050, L501.5200, L100.0100, L501.9520 #### [facility] Laboratory [address] [place], [address] Potassium [Moles/Vol] 4.2 mmol/L Normal 3.5-5.1 [facility] Comment on above: Performed By: #### L 500.4050, L501.5200, L100.0100, L501.9520 #### [facility] Laboratory [address] [place], [address] Sodium [Moles/Vol] 136 mmol/L Normal 136-145 [facility] Comment on above: Performed By: #### L 500.4050, L501.5200, L100.0100, L501.9520 #### [facility] Laboratory [address] [place], [address] T PROT 7.8 g/dL Normal 6.4-8.2 [facility] Comment on above: Performed By: #### L 500.4050, L501.5200, L100.0100, L501.9520 #### [facility] Laboratory [address] [place], [address] Urea nitrogen [Mass/Vol] 11 mg/dL Normal 7-18 [facility] Comment on above: Performed By: #### L 500.4050, L501.5200, L100.0100, L501.9520 #### [facility] Laboratory [address] [place], [address] Eosinophil percentageOrdered By: Jeffery Godinez on 10-31-2024 Eosinophils/100 WBC (Bld) 4.1 % 0-5 [facility] Erythrocyte distribution wid th ratioOrdered By: Jeffery Godinez on 10-31-2024 Erythrocyte distribution width (RBC) [Ratio] 13.2 % 11.6-14.6 [facility] Erythrocyte distribution wid th standard deviationOrdered By: Jeffery Godinez on 10-31-2024 Erythrocyte distribution width (RBC) [Entitic vol] 44.7 fL High 35.1-43.9 [facility] Erythrocyte distribution width (RBC) [Ratio] 44.7 fl High 35.1-43.9 [facility] Estimated glomerular filtrat ion rate (GFR) AmericanOrdered By: Jeffery Godinez on 10-31-2024 Estimated GFR (MDRD) Amer 87 mL/min >60 [facility] Comment on above: GFR Calc Glomerular filtration rate ( GFR) estimationOrdered By: Jeffery Godinez on 10-31-2024 Estimated GFR (MDRD) Non-Af Amer 72 mL/min >60 [facility] Comment on above: Non- GFR Calc GFR/1.73 sq M.predicted among non-blacks MDRD (S/P/Bld) [Vol rate/Area] 72 mL/min/{1.73_m2} >60 [facility] Comment on above: Non- GFR Calc Glucose measurementOrdered B y: Jeffery Godinez on 10-31-2024 Glucose [Mass/Vol] 100 mg/dL 74-106 [facility] Comment on above: Fasting Glucose resu lt from 100 to 125 mg/dL suggests IMPAIRED HOMEOSTASIS per A.D.A. criteria. Hematocrit Auto (Bld) [Volum e fraction]Ordered By: Jeffery Godinez on 10-31-2024 Hematocrit (Bld) [Volume fraction] 41.1 % 37-47 [facility] Hemoglobin measurementOrdere d By: Jeffery Godinez on 10-31-2024 Hemoglobin (Bld) [Mass/Vol] 13.1 g/dL 12.0-15.0 [facility] Immature granulocytes/100 WB C Auto (Bld)Ordered By: Jeffery Godinez on 10-31-2024 Immature granulocytes/100 WBC (Bld) 0.100 % 0.0-0.9 [facility] Comment on above: IG% - Immature Granu locytes (promyelocytes, myelocytes and metamyelocytes) > 1% indicates that a LEFT SHIFT is Present. Laboratory - Chemistry and C hemistry - challengeOrdered By: Jeffery Godinez on 10-31-2024 AST [Catalytic activity/Vol] 23 U/L 15-37 [facility] Lymphocytes Auto (Unsp spec) [#/Vol]Ordered By: Jeffery Godinez on 10-31-2024 Lymphocytes (Bld) [#/Vol] 1.87 10*3/uL 0.83-4.51 [facility] Lymphocytes/100 WBC Auto (Un sp spec)Ordered By: Jeffery Godinez on 10-31-2024 Lymphocytes/100 WBC (Bld) 26.6 % 19-41 [facility] MCV (mean corpuscular volume ) determinationOrdered By: Jeffery Godinez on 10-31-2024 MCV (RBC) [Entitic vol] 92.6 fL 81-99 [facility] Magnesiumon 10-31-2024 Magnesium [Mass/Vol] 2.2 mg/dL Normal 1.6-2.6 [facility] Comment on above: Performed By: #### L 500.4050, L501.5200, L100.0100, L501.9520 #### [facility] Laboratory [address] [facility] [place], [place], [address] Magnesium measurementOrdered By: Jeffery Godinez on 10-31-2024 Magnesium [Mass/Vol] 2.2 mg/dL 1.6-2.6 [facility] Mean corpuscular hemoglobin (MCH) determinationOrdered By: Jeffery Godinez on 10-31-2024 MCH (RBC) [Entitic mass] 29.5 pg 27.0-32.0 [facility] Mean corpuscular hemoglobin concentration (MCHC) determinationOrdered By: Jeffery Godinez on 10-31-2024 MCHC (RBC) [Mass/Vol] 31.9 g/dL Low 32-36 [facility] Mean platelet volume determi nationOrdered By: Jeffery Godinez on 10-31-2024 Platelet mean volume (Bld) [Entitic vol] 10.4 fL 6.2-12.0 [facility] Monocyte percentageOrdered B y: Jeffery Godinez on 10-31-2024 Monocytes/100 WBC (Bld) 8.8 % 0-10 [facility] Neutrophil percentageOrdered By: Jeffery Godinez on 10-31-2024 Neutrophils/100 WBC (Bld) 59.4 % 47-70 [facility] Nucleated red blood cell per centageOrdered By: Jeffery Godinez on 10-31-2024 Nucleated RBC/100 WBC (Bld) [Ratio] 0 % 0-5 [facility] Platelet countOrdered By: Celio Godinez on 10-31-2024 Platelets (Bld) [#/Vol] 323 10*3/uL 150-450 [facility] Potassium measurementOrdered By: Jeffery Godinez on 10-31-2024 Potassium [Moles/Vol] 4.2 mmol/L 3.5-5.1 [facility] RBC Auto (Bld) [#/Vol]Ordere d By: Jeffery Godinez on 10-31-2024 RBC (Bld) [#/Vol] 4.44 10*6/uL 4.2-5.4 [facility] Serum anion gap measurementO rdered By: Jeffery Godinez on 10-31-2024 Anion gap [Moles/Vol] 10 mmol/L 5-15 [facility] Serum globulin measurementOr dered By: Jeffery Godinez on 10-31-2024 Globulin (S) [Mass/Vol] 3.7 g/dL 2.2-4.2 [facility] Serum or plasma alanine wong otransferase (ALT) measurementOrdered By: Jeffery Godinez on 10-31-2024 ALT [Catalytic activity/Vol] 33 U/L 13-56 [facility] Serum or plasma albumin carol urement (mass/volume)Ordered By: Jeffery Godinez on 10-31-2024 Albumin [Mass/Vol] 4.1 g/dL 3.2-5.0 [facility] Serum or plasma alkaline vonda sphatase measurementOrdered By: Jeffery Godinez on 10-31-2024 ALP [Catalytic activity/Vol] 90 U/L 45-117 [facility] Serum or plasma calcium carol urement (mass/volume)Ordered By: Jeffery Godinez on 10-31-2024 Calcium [Mass/Vol] 9.9 mg/dL 8.5-10.1 [facility] Serum or plasma creatinine m easurement (mass/volume)Ordered By: Jeffery Godinez on 10-31-2024 Creatinine [Mass/Vol] 0.84 mg/dL 0.55-1.02 [facility] Comment on above: The validity of the calculated GFR & GFRAA in patients over 70 years has not been determined. Clinical correlation is essential. Serum or plasma thyroid stim ulating hormone (TSH) measurement (units/volume)Ordered By: Jeffery Godinez on 10-31-2024 TSH Qn 1.520 uIU/mL 0.358-3.740 [facility] Serum or plasma urea nitroge n measurement (mass/volume)Ordered By: Jeffery Godinez on 10-31-2024 Urea nitrogen [Mass/Vol] 11 mg/dL 7-18 [facility] Sodium levelOrdered By: Jeffery Godinez on 10-31-2024 Sodium [Moles/Vol] 136 mmol/L 136-145 [facility] TSH QnOrdered By: Jeffery arango on 10-31-2024 Thyroid Stimulating Hormone (TSH) 1.520 uIU/mL 0.358-3.740 [facility] Thyroid Stim Hormone (TSH)on 10-31-2024 TSH 1.520 uIU/mL Normal 0.358-3.740 [facility] Comment on above: Performed By: #### L 500.4050, L501.5200, L100.0100, L501.9520 #### [facility] Laboratory [address] [place], [address] Total proteinOrdered By: Svetlana Godinez on 10-31-2024 Protein [Mass/Vol] 7.8 g/dL 6.4-8.2 [facility] White blood cell (WBC) count Ordered By: Jeffery Godinez on 10-31-2024 WBC (Bld) [#/Vol] 7.0 10*3/uL 4.4-11.0 [facility] Basophil percentageOrdered B y: Jeffery Godinez on 11-10-2023 Bilirubin [Mass/Vol] 0.60 mg/dL 0.20-1.00 [facility] Comment on above: For patients on eltr ombopag therapy, use of Dimension [place] TBIL is not recommended. Chloride [Moles/Vol] 102 mmol/L 98-107 [facility] Cholesterol [Mass/Vol] 191 mg/dL <200 [facility] Comment on above: <200 mg/dL Desirable 200-240 mg/dL Borderline >240 mg/dL High Risk Glucose [Mass/Vol] 145 mg/dL 74-106 [facility] Comment on above: Fasting Glucose resu lt greater than or equal to 126 mg/dL suggests DIABETES MELLITUS per A.D.A. criteria. Potassium [Moles/Vol] 4.0 mmol/L 3.5-5.1 [facility] Protein [Mass/Vol] 7.7 g/dL 6.4-8.2 [facility] Sodium [Moles/Vol] 137 mmol/L 136-145 [facility] Triglyceride [Mass/Vol] 126 mg/dL <199 [facility] Comment on above: The drugs N-Acetylcy steine and Metamizole may falsely depress this assay.Serum Triglycerides Reference Interval Normal <150 mg/dL Borderline high 150 - 199 mg/dL High 200 - 499 mg/dL Very High > or = 500 mg/dL Laboratory - Chemistry and C hemistry - challengeOrdered By: Jeffery Godinez on 11-10-2023 Albumin/Globulin [Mass ratio] 1.1 {ratio} 0.9-2.4 [facility] ALP [Catalytic activity/Vol] 78 U/L 45-117 [facility] ALT [Catalytic activity/Vol] 38 U/L 13-56 [facility] Cholesterol in HDL [Mass/Vol] 59 mg/dL >40 [facility] Comment on above: The drugs N-Acetylcy steine and Metamizole may falsely depress this assay. Reference Range HDL <40 mg/dL Low HDL Cholesterol HDL >or= 60 mg/dL High HDL Cholesterol Cholesterol in LDL [Mass/Vol] 107 mg/dL 0-130 [facility] CO2 [Moles/Vol] 29.0 mmol/L 21.0-32.0 [facility] Globulin (S) [Mass/Vol] 3.7 g/dL 2.2-4.2 [facility] Urea nitrogen/Creatinine [Mass ratio] 13.0 mg/mg 10-20 [facility] No Panel InformationOrdered By: Jeffery Godinez on 11-10-2023 Estimated GFR (MDRD) Amer 66 mL/min >60 [facility] Comment on above: GFR Calc Estimated GFR (MDRD) Non-Af Amer 54 mL/min >60 [facility] Comment on above: Non- GFR Calc Urine Microalbumin/Creatinine Ratio TNP [facility] Comment on above: Test not performed VLDL Cholesterol 25 mg/dL 5-40 [facility] Serum or plasma calcium carol urement (mass/volume)Ordered By: Jeffery Godinez on 11-10-2023 Calcium [Mass/Vol] 9.5 mg/dL 8.5-10.1 [facility] Serum or plasma creatinine m easurement (mass/volume)Ordered By: Jeffery Godinez on 11-10-2023 Creatinine [Mass/Vol] 1.08 mg/dL 0.55-1.02 [facility] Comment on above: The validity of the calculated GFR & GFRAA in patients over 70 years has not been determined. Clinical correlation is essential. Serum or plasma urea nitroge n measurement (mass/volume)Ordered By: Jeffery Godinez on 11-10-2023 Urea nitrogen [Mass/Vol] 14 mg/dL 7-18 [facility] Thin prep Papanicolaou smear with manual screeningOrdered By: Jeffery Godinez on 11-10-2023 Thin prep Papanicolaou smear with manual screening 4.0 g/dL 3.2-5.0 [facility] Thin prep Papanicolaou smear with manual screening 18 U/L 15-37 [facility] Thin prep Papanicolaou smear with manual screening 6 5-15 [facility] Thin prep Papanicolaou smear with manual screening < 5.0 mg/L NO RANGE EST. [facility] Urine creatinine measurement (mass/volume)Ordered By: Jeffery Godinez on 11-10-2023 Creatinine (U) [Mass/Vol] 109.00 mg/dL NO RANGE EST. [facility] Absolute lymphocyte countOrd ered By: ED PROVIDER on 07-21-2023 Lymphocytes Auto (Unsp spec) [#/Vol] 1.56 10*3/uL 0.83-4.51 [facility] Basophil percentageOrdered B y: ED PROVIDER on 07-21-2023 Basophil percentage 0-5 SEEN /hpf 0-5 [facility] Basophils/100 WBC (Bld) 0.3 % 0-1 [facility] Bilirubin [Mass/Vol] 1.10 mg/dL 0.20-1.00 [facility] Comment on above: For patients on eltr ombopag therapy, use of Dimension [place] TBIL is not recommended. Chloride [Moles/Vol] 98 mmol/L 98-107 [facility] Eosinophils/100 WBC (Bld) 0.1 % 0-5 [facility] Glucose [Mass/Vol] 130 mg/dL 74-106 [facility] Comment on above: Fasting Glucose resu lt greater than or equal to 126 mg/dL suggests DIABETES MELLITUS per A.D.A. criteria. Neutrophils (Bld) [#/Vol] 11.2 10*3/uL 2.0-7.7 [facility] Neutrophils/100 WBC (Bld) 81.1 % 47-70 [facility] Potassium [Moles/Vol] 3.3 mmol/L 3.5-5.1 [facility] Protein [Mass/Vol] 8.2 g/dL 6.4-8.2 [facility] Sodium [Moles/Vol] 133 mmol/L 136-145 [facility] WBC (Bld) [#/Vol] 13.9 10*3/uL 4.4-11.0 [facility] Basophil percentageOrdered B y: Aby Jeff on 07-21-2023 Lactate [Moles/Vol] 1.1 mmol/L 0.4-2.0 [facility] Bilirubin Test strip Ql (U)O rdered By: ED PROVIDER on 07-21-2023 Bilirubin Ql (U) Negative Negative [facility] Blood erythrocytes count (nu mber/volume)Ordered By: ED PROVIDER on 07-21-2023 RBC (Bld) [#/Vol] 4.36 10*6/uL 4.2-5.4 [facility] Blood hemoglobin measurement (mass/volume)Ordered By: ED PROVIDER on 07-21-2023 Hemoglobin (Bld) [Mass/Vol] 13.3 g/dL 12.0-15.0 [facility] Blood lymphocytes/100 leukoc ytesOrdered By: ED PROVIDER on 07-21-2023 Lymphocytes/100 WBC (Bld) 11.3 % 19-41 [facility] Blood monocytes/100 leukocyt esOrdered By: ED PROVIDER on 07-21-2023 Monocytes/100 WBC (Bld) 6.8 % 0-10 [facility] Blood platelet mean volumeOr dered By: ED PROVIDER on 07-21-2023 Platelet mean volume (Bld) [Entitic vol] 10.4 fL 6.2-12.0 [facility] Determination of erythrocyte mean corpuscular volume (MCV)Ordered By: ED PROVIDER on 07-21-2023 MCV (RBC) [Entitic vol] 92.2 fL 81-99 [facility] Hematocrit Auto (Bld) [Volum e fraction]Ordered By: ED PROVIDER on 07-21-2023 Hematocrit (Bld) [Volume fraction] 40.2 % 37-47 [facility] Ketones Test strip Ql (U)Ord ered By: ED PROVIDER on 07-21-2023 Ketones Ql (U) 15 mg/dl Negative [facility] Laboratory - Chemistry and C hemistry - challengeOrdered By: ED PROVIDER on 07-21-2023 ALP [Catalytic activity/Vol] 85 U/L 45-117 [facility] ALT [Catalytic activity/Vol] 30 U/L 13-56 [facility] CO2 [Moles/Vol] 29.0 mmol/L 21.0-32.0 [facility] Globulin (S) [Mass/Vol] 4.2 g/dL 2.2-4.2 [facility] Urea nitrogen/Creatinine [Mass ratio] 11.3 mg/mg 10-20 [facility] Laboratory - Hematology and Cell countsOrdered By: ED PROVIDER on 07-21-2023 Erythrocyte distribution width (RBC) [Entitic vol] 44.3 fL 35.1-43.9 [facility] Erythrocyte distribution width (RBC) [Ratio] 13.1 % 11.6-14.6 [facility] Immature granulocytes/100 WBC (Bld) 0.400 % 0.0-0.9 [facility] Comment on above: IG% - Immature Granu locytes (promyelocytes, myelocytes and metamyelocytes) > 1% indicates that a LEFT SHIFT is Present. MCH (RBC) [Entitic mass] 30.5 pg 27.0-32.0 [facility] Nucleated RBC/100 WBC (Bld) [Ratio] 0 % 0-5 [facility] MCHC Auto (RBC) [Mass/Vol]Or dered By: ED PROVIDER on 07-21-2023 MCHC (RBC) [Mass/Vol] 33.1 g/dL 32-36 [facility] Mucus LM Ql (Urine sed)Order ed By: ED PROVIDER on 07-21-2023 Mucus Ql (Urine sed) 0 SEEN /hpf [facility] Nitrite Test strip Ql (U)Ord ered By: ED PROVIDER on 07-21-2023 Nitrite Ql (U) Negative Negative [facility] No Panel InformationOrdered By: ED PROVIDER on 07-21-2023 Estimated Creatinine Clearance Calc 62.81 ml/min [facility] Estimated GFR (MDRD) Amer 83 mL/min >60 [facility] Comment on above: GFR Calc Estimated GFR (MDRD) Non-Af Amer 69 mL/min >60 [facility] Comment on above: Non- GFR Calc Platelets bldOrdered By: ED PROVIDER on 07-21-2023 Platelets (Bld) [#/Vol] 288 10*3/uL 150-450 [facility] Protein Test strip Ql (U)Ord ered By: ED PROVIDER on 07-21-2023 Protein Ql (U) 30 mg/dl Negative [facility] Serum or plasma albumin carol urement (mass/volume)Ordered By: ED PROVIDER on 07-21-2023 Albumin [Mass/Vol] 4.0 g/dL 3.2-5.0 [facility] Serum or plasma albumin/glob ulin mass ratioOrdered By: ED PROVIDER on 07-21-2023 Albumin/Globulin [Mass ratio] 1.0 {ratio} 0.9-2.4 [facility] Serum or plasma calcium carol urement (mass/volume)Ordered By: ED PROVIDER on 07-21-2023 Calcium [Mass/Vol] 9.5 mg/dL 8.5-10.1 [facility] Serum or plasma creatinine m easurement (mass/volume)Ordered By: ED PROVIDER on 07-21-2023 Creatinine [Mass/Vol] 0.88 mg/dL 0.55-1.02 [facility] Comment on above: The validity of the calculated GFR & GFRAA in patients over 70 years has not been determined. Clinical correlation is essential. Serum or plasma urea nitroge n measurement (mass/volume)Ordered By: ED PROVIDER on 07-21-2023 Urea nitrogen [Mass/Vol] 10 mg/dL 7-18 [facility] Squamous epithelial cells de tection in urine sediment by light microscopyOrdered By: ED PROVIDER on 07-21-2023 Epithelial cells.squamous LM Ql (Urine sed) 0-5 SEEN /hpf 5-10 [facility] Thin prep Papanicolaou smear with manual screeningOrdered By: ED PROVIDER on 07-21-2023 Thin prep Papanicolaou smear with manual screening 13 U/L 15-37 [facility] Thin prep Papanicolaou smear with manual screening 6 5-15 [facility] Urine blood detectionOrdered By: ED PROVIDER on 07-21-2023 RBC Ql (U) 25 /ul Negative [facility] RBC Ql (U) 0-5 SEEN /hpf 0-5 [facility] Urine clarityOrdered By: ED PROVIDER on 07-21-2023 Clarity (U) Clear Clear [facility] Urine color determinationOrd ered By: ED PROVIDER on 07-21-2023 Color (U) Yellow Yellow [facility] Urine glucose detectionOrder ed By: ED PROVIDER on 07-21-2023 Glucose Ql (U) Normal mg/dl Normal [facility] Urine leukocyte esterase det ection by dipstickOrdered By: ED PROVIDER on 07-21-2023 Leukocyte esterase Test strip Ql (U) Negative Negative [facility] Urine pHOrdered By: ED PROVI CARMELITA on 07-21-2023 pH (U) 6.0 [pH] 5.0 - 8.0 [facility] Urine sediment bacteria coun t by microscopy (number/high power field)Ordered By: ED PROVIDER on 07-21-2023 Bacteria LM.HPF (Urine sed) [#/Area] 0 /[HPF] None Seen [facility] Urine specific gravity measu rementOrdered By: ED PROVIDER on 07-21-2023 Specific gravity (U) [Rel density] 1.010 1.002-1.030 [facility] Urobilinogen Auto test strip Ql (U)Ordered By: ED PROVIDER on 07-21-2023 Urobilinogen Ql (U) Normal mg/dl Normal [facility] Basophil percentageOrdered B y: Jeffery Godinez on 05-06-2023 Chloride [Moles/Vol] 102 mmol/L 98-107 [facility] Cholesterol [Mass/Vol] 197 mg/dL <200 [facility] Comment on above: <200 mg/dL Desirable 200-240 mg/dL Borderline >240 mg/dL High Risk Glucose [Mass/Vol] 152 mg/dL 74-106 [facility] Comment on above: Fasting Glucose resu lt greater than or equal to 126 mg/dL suggests DIABETES MELLITUS per A.D.A. criteria. Potassium [Moles/Vol] 3.8 mmol/L 3.5-5.1 [facility] Sodium [Moles/Vol] 138 mmol/L 136-145 [facility] Triglyceride [Mass/Vol] 168 mg/dL <199 [facility] Comment on above: The drugs N-Acetylcy steine and Metamizole may falsely depress this assay.Serum Triglycerides Reference Interval Normal <150 mg/dL Borderline high 150 - 199 mg/dL High 200 - 499 mg/dL Very High > or = 500 mg/dL Laboratory - Chemistry and C hemistry - challengeOrdered By: Jeffery Godinez on 05-06-2023 CO2 [Moles/Vol] 30.0 mmol/L 21.0-32.0 [facility] Urea nitrogen/Creatinine [Mass ratio] 13.6 mg/mg 10-20 [facility] No Panel InformationOrdered By: Jeffery Godinez on 05-06-2023 Estimated GFR (MDRD) Amer 76 mL/min >60 [facility] Comment on above: GFR Calc Estimated GFR (MDRD) Non-Af Amer 63 mL/min >60 [facility] Comment on above: Non- GFR Calc Serum or plasma calcium carol urement (mass/volume)Ordered By: Jeffery Godinez on 05-06-2023 Calcium [Mass/Vol] 9.6 mg/dL 8.5-10.1 [facility] Serum or plasma cholesterol in HDL measurement (mass/volume)Ordered By: Jeffery Godinez on 05-06-2023 Cholesterol in HDL [Mass/Vol] 53 mg/dL >40 [facility] Comment on above: The drugs N-Acetylcy steine and Metamizole may falsely depress this assay. Reference Range HDL <40 mg/dL Low HDL Cholesterol HDL >or= 60 mg/dL High HDL Cholesterol Serum or plasma cholesterol in VLDL measurement (mass/volume)Ordered By: Jeffery Godinez on 05-06-2023 Cholesterol in VLDL [Mass/Vol] 34 mg/dL 5-40 [facility] Serum or plasma creatinine m easurement (mass/volume)Ordered By: Jeffery Godinez on 05-06-2023 Creatinine [Mass/Vol] 0.95 mg/dL 0.55-1.02 [facility] Comment on above: The validity of the calculated GFR & GFRAA in patients over 70 years has not been determined. Clinical correlation is essential. Serum or plasma low density lipoprotein (LDL) cholesterol measurement (mass/volume)Ordered By: Jeffery Godinez on 05-06-2023 Cholesterol in LDL [Mass/Vol] 110 mg/dL 0-130 [facility] Serum or plasma urea nitroge n measurement (mass/volume)Ordered By: Jeffery Godinez on 05-06-2023 Urea nitrogen [Mass/Vol] 13 mg/dL 7-18 [facility] Thin prep Papanicolaou smear with manual screeningOrdered By: Jeffery Godinez on 05-06-2023 Thin prep Papanicolaou smear with manual screening 6 5-15 [facility] Basophil percentageOrdered B y: Dr. Godinez on 11-01-2022 Chloride [Moles/Vol] 103 mmol/L 98-107 [facility] Cholesterol [Mass/Vol] 182 mg/dL <200 [facility] Comment on above: <200 mg/dL Desirable 200-240 mg/dL Borderline >240 mg/dL High Risk Glucose [Mass/Vol] 120 mg/dL 74-106 [facility] Comment on above: Fasting Glucose resu lt from 100 to 125 mg/dL suggests IMPAIRED HOMEOSTASIS per A.D.A. criteria. Potassium [Moles/Vol] 3.8 mmol/L 3.5-5.1 [facility] Sodium [Moles/Vol] 139 mmol/L 136-145 [facility] Triglyceride [Mass/Vol] 125 mg/dL <199 [facility] Comment on above: The drugs N-Acetylcy steine and Metamizole may falsely depress this assay.Serum Triglycerides Reference Interval Normal <150 mg/dL Borderline high 150 - 199 mg/dL High 200 - 499 mg/dL Very High > or = 500 mg/dL Laboratory - Chemistry and C hemistry - challengeOrdered By: Dr. Godinez on 11-01-2022 CO2 [Moles/Vol] 28.0 mmol/L 21.0-32.0 [facility] Urea nitrogen/Creatinine [Mass ratio] 14.1 mg/mg 10-20 [facility] No Panel InformationOrdered By: Dr. Godinez on 11-01-2022 Estimated GFR (MDRD) Amer 86 mL/min >60 [facility] Comment on above: GFR Calc Estimated GFR (MDRD) Non-Af Amer 71 mL/min >60 [facility] Comment on above: Non- GFR Calc Serum or plasma calcium craol urement (mass/volume)Ordered By: Dr. Godinez on 11-01-2022 Calcium [Mass/Vol] 9.8 mg/dL 8.5-10.1 [facility] Serum or plasma cholesterol in HDL measurement (mass/volume)Ordered By: Dr. Godinez on 11-01-2022 Cholesterol in HDL [Mass/Vol] 59 mg/dL >40 [facility] Comment on above: The drugs N-Acetylcy steine and Metamizole may falsely depress this assay. Reference Range HDL <40 mg/dL Low HDL Cholesterol HDL >or= 60 mg/dL High HDL Cholesterol Serum or plasma cholesterol in VLDL measurement (mass/volume)Ordered By: Dr. Godinez on 11-01-2022 Cholesterol in VLDL [Mass/Vol] 25 mg/dL 5-40 [facility] Serum or plasma creatinine m easurement (mass/volume)Ordered By: Dr. Godinez on 11-01-2022 Creatinine [Mass/Vol] 0.85 mg/dL 0.55-1.02 [facility] Comment on above: The validity of the calculated GFR & GFRAA in patients over 70 years has not been determined. Clinical correlation is essential. Serum or plasma low density lipoprotein (LDL) cholesterol measurement (mass/volume)Ordered By: Dr. Godinez on 11-01-2022 Cholesterol in LDL [Mass/Vol] 98 mg/dL 0-130 [facility] Serum or plasma urea nitroge n measurement (mass/volume)Ordered By: Dr. Godinez on 11-01-2022 Urea nitrogen [Mass/Vol] 12 mg/dL 7-18 [facility] Thin prep Papanicolaou smear with manual screeningOrdered By: Dr. Godinez on 11-01-2022 Thin prep Papanicolaou smear with manual screening 8 5-15 [facility] Whole blood hemoglobin A1c/t otal hemoglobin ratio (mass fraction)Ordered By: Dr. Godinez on 11-01-2022 HbA1c (Bld) [Mass fraction] 6.8 % 3.8-5.6 [facility] Comment on above: Normal < 5.7 % Predi abetic 5.7 - 6.4 % Diabetic >or= 6.5 % Please note range changes. Culture, urineOrdered By: Dr Annika Fontaine on 09-28-2022 Bacteria identified Cx Nom (U) Positive [facility] CNOVon 11-20-2018 CNOV Office Visit ([facility]) ---- FALGUNI OSBORNE ([id number]) 1960 F Date Time Provider Department 11/20/18 6:15 PM MONY GRIMALDO) [facility] During your visit today, we recorded the following information about you: Temperature Pulse Respiration Blood pressure 98.4 degrees 78/minute 18/minute 126/82 Weight 121.4 kg Mony Grimaldo PA-C 11/20/2018 7:00 PM Signed Subjective HPI Patient presents with hematuria, frequency, urgency and burning ?1 day. No abdominal pain or back pain. No fever. No vomiting. She has had a UTI she thinks may be the last one was 6 months ago. She saw her family doctor for that. Review of Systems Genitourinary: Positive for dysuria, frequency, hematuria and urgency. All other systems reviewed and are negative. No past medical history on file. Current Outpatient Medications: aspirin 81 mg chewable tablet Take 81 mg by mouth once daily. Disp: Rfl: metoprolol tartrate, short acting, (LOPRESSOR) 50 mg tablet Take 50 mg by mouth twice daily. Disp: Rfl: Cholecalciferol, Vitamin D3, (VITAMIN D) 1,000 unit cap Take 1,000 Units by mouth twice daily. Disp: Rfl: amLODIPine (NORVASC) 5 mg tablet Take 5 mg by mouth once daily. Disp: Rfl: lisinopril (ZESTRIL, PRINIVIL) 10 mg tablet Take 10 mg by mouth once daily. Disp: Rfl: OMEPRAZOLE ORAL Take 1 capsule by mouth once daily. Disp: Rfl: Ascorbic Acid (VITAMIN C) 1,000 mg tablet Take 1,000 mg by mouth once daily. Disp: Rfl: MULTIVIT-MIN/IRON/F OLIC/LUTEIN (CENTRUM SILVER WOMEN ORAL) Take 1 tablet by mouth once daily. Disp: Rfl: nitrofurantoin monohydrate and macrocrystal (MACROBID) 100 mg capsule Take 1 capsule by mouth twice daily with meals for 7 days. Disp: 14 capsule Rfl: 0 No current facility-administer ed medications for this visit. No past surgical history on file. No family history on file. Social History Tobacco Use - Smoking status: Never Smoker - Smokeless tobacco: Never Used Substance Use Topics - Alcohol use: Not on file - Drug use: Not on file BP 126/82 Pulse 78 Temp 36.9 ?C (98.4 ?F) (Tympanic) Resp 18 Wt 121.4 kg (267 lb 9.6 oz) Objective Physical Exam Constitutional: She is well-developed, well-nourished, and in no distress. HENT: Head: Normocephalic and atraumatic. Cardiovascular: Normal rate, regular rhythm and normal heart sounds. Pulmonary/Chest: Effort normal and breath sounds normal. Musculoskeletal: No cva tenderness Neurological: She is alert. Skin: Skin is warm and dry. No rash noted. Nursing note and vitals reviewed. ASSESSMENT/PLAN: 1. Dysuria - ICD9: 788.1, ICD10: R30.0 acute - UA positive for sharon esterase and hematuria - Send urine for culture - Begin treatment with Macrobid 100 mg BID for 7 days - UA DIP, URINE (POC) - URINE CULTURE Mony Grimaldo PA-C Referring Provider: SELF [[id number]] Allergies As of Date: 11/20/2018 Noted Allergy Reaction BACTRIM (SULFAMETHOXAZOLE-T RIMETH*06/07/2017 2 - Rash 17 - Myalgia PENICILLIN 06/07/2017 16 - Unknown Date Reviewed: 11/20/2018 Reviewed by: Earlene Holliday LPN - Fully Assessed Reason for Visit: UTI [116] Cmt: burning, urgency, frequency and hematuria with urination x 1 day Primary Visit Diagnosis:Dysuria [R30.0] Order(s):UA DIP, URINE (POC) [[id number]] Order #: [id number]. #:[id number] URINE CULTURE [SQURCUL] Order #: [id number] nitrofurantoin monohydrate and macrocrystal (MACROBID) 100 mg capsuleTake 1 capsule by mouth twice daily with meals for 7 days.Disp: 14 capsuleRfl: 0 Prescriptions as of 11/20/2018 Sig: ASPIRIN 81 MG CHEWABLE TABLET Take 81 mg by mouth once fuentes* METOPROLOL TARTRATE 50 MG TAB* Take 50 mg by mouth twice lisa* CHOLECALCIFEROL (VITAMIN D3) * Take 1,000 Units by mouth twi* AMLODIPINE 5 MG TABLET Take 5 mg by mouth once daily. LISINOPRIL 10 MG TABLET Take 10 mg by mouth once fuentes* OMEPRAZOLE ORAL Take 1 capsule by mouth once * ASCORBIC ACID (VITAMIN C) 1,0* Take 1,000 mg by mouth once d* CENTRUM SILVER WOMEN ORAL Take 1 tablet by mouth once d* NITROFURANTOIN MONOHYDRATE AND * Take 1 capsule by mouth twice* Problem List As Of Date: 11/20/2018 (None) Prescriptions ordered this encounter Disp Refills Start End NITROFURANTOIN MONOHYDRATE AND MACROCR* 14 c* 0 11/20/2018 11/27/2018 Route: ORAL Sig: Take 1 capsule by mouth twice daily with meals for 7 days. Encounter Status:Closed by MONY GRIMALDO PA-C on 11/20/18 Normal [facility] PROGRESSon 11-20-2018 Protein mass conc HNO ID: [id number] Author: Mony Grimaldo (Pa) Service: ? Author Type: Physician Hand Model Type: Progress Notes Filed: 11/20/2018 7:00 PM Note Text: Subjective HPI Patient presents with hematuria, frequency, urgency and burning ?1 day. No abdominal pain or back pain. No fever. No vomiting. She has had a UTI she thinks may be the last one was 6 months ago. She saw her family doctor for that. Review of Systems Genitourinary: Positive for dysuria, frequency, hematuria and urgency. All other systems reviewed and are negative. No past medical history on file. Current Outpatient Medications: aspirin 81 mg chewable tablet Take 81 mg by mouth once daily. Disp: Rfl: metoprolol tartrate, short acting, (LOPRESSOR) 50 mg tablet Take 50 mg by mouth twice daily. Disp: Rfl: Cholecalciferol, Vitamin D3, (VITAMIN D) 1,000 unit cap Take 1,000 Units by mouth twice daily. Disp: Rfl: amLODIPine (NORVASC) 5 mg tablet Take 5 mg by mouth once daily. Disp: Rfl: lisinopril (ZESTRIL, PRINIVIL) 10 mg tablet Take 10 mg by mouth once daily. Disp: Rfl: OMEPRAZOLE ORAL Take 1 capsule by mouth once daily. Disp: Rfl: Ascorbic Acid (VITAMIN C) 1,000 mg tablet Take 1,000 mg by mouth once daily. Disp: Rfl: MULTIVIT-MIN/IRON/F OLIC/LUTEIN (CENTRUM SILVER WOMEN ORAL) Take 1 tablet by mouth once daily. Disp: Rfl: nitrofurantoin monohydrate and macrocrystal (MACROBID) 100 mg capsule Take 1 capsule by mouth twice daily with meals for 7 days. Disp: 14 capsule Rfl: 0 No current facility-administer ed medications for this visit. No past surgical history on file. No family history on file. Social History Tobacco Use - Smoking status: Never Smoker - Smokeless tobacco: Never Used Substance Use Topics - Alcohol use: Not on file - Drug use: Not on file BP 126/82 Pulse 78 Temp 36.9 ?C (98.4 ?F) (Tympanic) Resp 18 Wt 121.4 kg (267 lb 9.6 oz) Objective Physical Exam Constitutional: She is well-developed, well-nourished, and in no distress. HENT: Head: Normocephalic and atraumatic. Cardiovascular: Normal rate, regular rhythm and normal heart sounds. Pulmonary/Chest: Effort normal and breath sounds normal. Musculoskeletal: No cva tenderness Neurological: She is alert. Skin: Skin is warm and dry. No rash noted. Nursing note and vitals reviewed. ASSESSMENT/PLAN: 1. Dysuria - ICD9: 788.1, ICD10: R30.0 acute - UA positive for sharon esterase and hematuria - Send urine for culture - Begin treatment with Macrobid 100 mg BID for 7 days - UA DIP, URINE (POC) - URINE CULTURE Mony Grimaldo PA-C Normal [facility] Urine Cultureon 11-20-2018 Bacteria identified Cx Nom (U) Sp. Request/Comment: - Specimen received in preservative Culture Result - 10,000 - <50,000 CFU/ml Lactose negative gram negative bacilli --> ABNORMAL ALERT Insignificant colony count. No further workup. --> ABNORMAL ALERT <10,000 CFU/ml Normal urogenital renetta Critically abnormal [facility] Comment on above: Performed By: #### U RCUL #### [facility] [address] [place] [address] Vital Signs Date Time Vital Sign Value Performing Clinician Kasi castro 07-21-2023 17:15-0500 Body height 170.18 cm [facility] 07-21-2023 17:15-0500 Body mass index (BMI) [Ratio] 41.7 kg/m2 [facility] 07-21-2023 17:15-0500 Body temperature 97.2 [degF] [facility] 07-21-2023 17:15-0500 Body weight 120.88 kg [facility] 07-21-2023 17:15-0500 Diastolic blood pressure 89 mm[Hg] [facility] 11-09-2023 17:15-0500 Heart rate 105 /min [facility] 07-21-2023 17:15-0500 Respiratory rate 20 /min [facility] 07-21-2023 17:15-0500 SaO2% (BldA) [Mass fraction] 100 % [facility] 07-21-2023 17:15-0500 Systolic blood pressure 184 mm[Hg] [facility] Encounters Encounter Date Encounter Type Care Provider Facility Start: 05-07-2025 End: 05-07-[address] Jeffery Godinez MD Work Phone: -Outpatient [facility] Start: 05-07-2025 End: 05-07-2025 Patient encounter procedure Coretta Garcia NP-Shikha -Outpatient Breast Imaging Work Phone: Start: 05-07-2025 End: 05-07-2025 ambulatory Jeffery Godinez Facility:[facility] Start: 03-12-2025 Non-patient / Non-visit Dr. Franny donis MD -[facility] Work Phone: Start: 02-01-2025 End: 02-01-[address] Jeffery Godinez MD Work Phone: [facility] Work Phone: Start: 02-01-2025 End: 02-01-[address] Jeffery Godinez MD -[facility] [place] Work Phone: Start: 02-01-2025 End: 02-01-2025 ambulatory Jeffery Godinez Facility:[facility] Start: 11-19-2024 ambulatory Jeffery Godinez Facility:[facility] Start: 11-19-2024 Non-patient / Non-visit Dr. Tammie Kim MD -[facility] Start: 11-19-2024 End: 11-19-[address] Jeffery Godinez MD Work Phone: [facility] Work Phone: Start: 11-19-2024 End: 11-19-[address] Jeffery Godinez MD -Cardiovascular Services Work Phone: Start: 11-19-2024 End: 11-19-2024 ambulatory Jeffery Godinez Facility:[facility] Start: 10-31-2024 End: 10-31-[address] [facility] Start: 10-31-2024 End: 10-31-2024 ambulatory Jeffery Godinez Facility:[facility] Start: 11-10-2023 End: 11-10-2023 ambulatory [facility] Work Phone: Start: 11-10-2023 End: 11-10-2023 [facility] Start: 07-21-2023 End: 07-21-2023 Emergency department patient visit [facility]-Emergency Department Work Phone: Start: 07-21-2023 End: 07-21-2023 ambulatory [facility] Work Phone: Start: 07-21-2023 End: 07-21-2023 Patient encounter procedure [facility]-Ultrasound, [facility] Work Phone: Start: 05-06-2023 End: 05-06-2023 [facility] Start: 03-22-2023 End: 03-22-2023 ambulatory [facility] Work Phone: Start: 03-22-2023 End: 03-22-2023 Patient encounter procedure [facility]-Outpatient Breast Imaging Work Phone: Start: 11-01-2022 End: 11-01-2022 ambulatory [facility] Work Phone: Start: 11-01-2022 End: 11-01-2022 [facility] Start: 09-27-2022 End: 09-27-2022 ambulatory [facility] Work Phone: Start: 09-27-2022 End: 09-27-2022 Patient encounter procedure [facility]-Laboratory, Specimen Start: 11-20-2018 End: 11-21-2018 Patient encounter procedure [facility] Procedures Date Procedure Procedure Detail Performing Clinician Start: 05-07-2025 Screening mammography [place] Godinez MD Work Phone: Start: 11-19-2024 Radionuclide imaging of perfusion of myocardium under exercise stress Dr. Jeffery Godinez MD Work Phone: Start: 10-31-2024 Measurement of renal function Dr. Jeffery Godinez MD Work Phone: Comment on above: GFR Calc Start: 07-21-2023 Computed tomography of abdomen and pelvis with intravenous contrast Start: 07-21-2023 US scan of thyroid Start: 03-22-2023 Screening mammography Urine culture Plan of Treatment Date Care Activity Detail Author Start: 07-21-2023 [facility] Start: 07-21-2023 US scan of thyroid Thyroid [facility] Patient Education ED Diverticulitis [facility] Work Phone: Patient referral [facility] Work Phone: Payers Date Payer Category Payer Private Health Insurance [id number] 2024 Self-pay [id number] 2012 Unknown [id number] Unknown [facility] PACKAGE PLAN [id number] Unknown [id number] Unknown [id number] Unknown [id number] Unknown [id number] Unknown [id number] Social History Date Type Detail Facility Start: 08-02-2019 End: 07-21-2023 Tobacco smoking status NHIS Unknown if ever smoked [facility] Start: 04-05-2019 Non-smoker [facility] Start: 1960 Sex Assigned At Female W [facility] Start: 04-18-2024 Tobacco smoking stat us NHIS Never smoked tobacco (finding) [facility] Start: 11-28-2024 Sex Female (finding) [facility] Discharge summary 07-21-2023 Note Date & Type Note Facility 07-21-2023 Discharge summary Note Date/Time July 21, 2023 9:13pm [facility] Medical Records Department [address] [place] [address] Emergency Department Summary 07/21/23 MR#: [id number] Acct: [id number] Name: FALGUNI OSBORNE Rep #:[id number] : 1960 63 From: Aby Smith PCP: Dr. Jeffery Godinez MD Status:REG E R Location: ED HPI HPI - GI History of Present Illness Chief Complaint: Abd Pain Informant: patient Narrative Narrative: Patient is a 63-year-old female with history of ongoing constipation, hypertension, diabetes mellitus and prior colonoscopy that did show diverticulosis but no personal history of diverticulitis. She is presenting with 2 days worsening lower abdominal pressure. She states yesterday morning she thought maybe it was gas however it is continued to be more persistent and worsen. She notes she has not a bowel movement 2 days which is unusual for her even with her chronic constipation. She been passing gas but less than normal. She states her symptoms are worse when she is standing or bending her abdomen. She also notes she does not have dysuria but when she pushes to urinate it increases the pain in her abdomen. Notes that she does have a known gallstone as well as hernia of her umbilical area that does hurt more when she pushes on it. Denies any history of any abdominal surgeries. Denies any nausea or vomiting. No fever or chills. No other complaints at this time. [facility] Medical History Acid reflux High cholesterol HTN (hypertension) Multiple thyroid nodules Recurrent UTI Home Medications ascorbic acid (vitamin C) 1,000 mg tablet 1,000 mg PO DAILY 04/05/19 [History Last Taken Unknown] aspirin 81 mg tablet,delayed release 81 mg PO DAILY 04/05/19 [History Last Taken 04/02/19] calcium carbonate-vitamin D3 600 mg-125 unit tablet 1 ea PO DAILY 04/05/19 [History Last Taken Unknown] cephalexin 250 mg capsule 250 mg PO QHS 04/05/19 [History Last Taken Unknown] cholecalciferol (vitamin D3) 25 mcg (1,000 unit) tablet 1,000 unit PO BID 04/05/19 [History Last Taken Unknown] metoprolol tartrate 50 mg tablet 50 mg PO BID 04/05/19 [History Last Taken Unknown] multivitamin with minerals 1 ea PO DAILY 04/05/19 [History Last Taken Unknown] omeprazole 20 mg capsule,delayed release 20 mg PO DAILY 04/05/19 [History Last Taken 04/09/19] lisinopril 20 mg-hydrochlorothiazide 25 mg tablet 1 tab PO DAILY 07/20/19 [History Last Taken Unknown] sennosides 8.6 mg tablet (senna) 8.6 mg PO BID 07/20/19 [History Last Taken Unknown] cefdinir 300 mg capsule 300 mg PO BID #14 caps 07/21/23 [Rx Last Taken Unknown] metronidazole 500 mg tablet 500 mg PO Q8H 7 days #21 tabs 07/21/23 [Rx Last Taken Unknown] Allergy/AdvReac Type Severity Reaction Status Date / Time Penicillins Allergy Unknown Verified 08/02/19 07:32 sulfamethoxazole Allergy muscle pain Verified 08/02/19 07:32 [From Bactrim] trimethoprim [From Bactrim] Allergy muscle pain Verified 08/02/19 07:32 Family History Mother Hypertension Diabetes Sister Hypertension Social History Smoking Status: Never smoker alcohol intake: current alcohol intake frequency: holidays/special occasions only ROS ROS ED Constitutional Constitutional ED: Denies chills or fever(s) Respiratory/Chest Respiratory/Chest: Denies cough Gastrointestinal Gastrointestinal: Reports abdominal pain and constipation; Denies nausea or vomiting Musculoskeletal Musculoskeletal: Denies arthralgias Integumentary Denies rash Neurologic Neurologic: Denies headache(s), paresthesias or weakness Hematologic/Lymphatic Hematologic/Lymphatic: Denies easy bleeding or easy bruising EXAM Physical Exam Const Vital Signs: 07/21/23 17:15 Temperature 97.2 F L Temperature Source Temporal Pulse Rate 105 H Respiratory Rate 20 H Blood Pressure 184/89 H Blood Pressure Mean 120 Pulse Ox 100 Oxygen Delivery Method Room Air Positive well nourished and well developed General Appearance ED: well developed and NAD HEENT Reports moist mucous membranes normocephalic and atraumatic Neck supple Resp normal respiratory effort and clear to auscultation bilaterally Cardio regular rate, regular rhythm and no murmurs GI non-tender and non-distended GI Narrative: No mass or hernia appreciated. Patient points to her lower abdomen as the area of pain however it is not tender on direct palpation Palpation: Negative for guarding or rigid Back/Spine no CVA tenderness Extremity General Extremety ED: Negative for edema General Extremity: Negative for edema Neuro Sensorium / Orientation: alert, oriented to person, oriented to place and oriented to time Motor Exam: Negative for general weakness Psych mental status grossly normal and thought process normal Skin no wounds Rashes: no rashes MDM MDM MDM Narrative Medical decision making narrative: Patient is evaluated for 2 days of constipation lower abdominal pain. Differential includes urinary tract infection, diverticulitis, small bowel obstruction and less likely cholecystitis, cystitis or renal colic. Patient is mildly tachycardic and hypertensive upon arrival however she declinespain medication. She is resting pretty comfortably at rest in the ER. CBC doesshow leukocytosis with a white blood cell count of 13.9. CMP unremarkable. Lactate is added on because of her leukocytosis and tachycardia however it is normal. Normal kidney function. Urinalysis is not consistent with UTI. CT of the abdomen pelvis shows diverticular disease of the descending and sigmoid colon and associated with mild acute diverticulitis of the sigmoid colon but no evidence of diverticular abscess or perforation. I think patient is a good candidate for outpatient antibiotic treatment. She is again offered Toradol or something for pain but declines. She is given first dose of Omnicef and Flagyl in the emergency room. Declines any prescription for pain medicine at discharge. Given return precautions. Counseled on the risk of antibiotic failure and need for IV antibiotics if she worsens. Encouraged to alternate ibuprofen and Tylenol as needed for discomfort. Encouraged to adhere to a liquid diet for the next 24 hours or until she is feeling better. She verbalizes agreement understanding with this plan. Discharged home in stable condition. Hypertensive in the ER and I does take her home blood pressure medicine while inthe emergency room. Lab Data Labs: Laboratory Results - last 24 hr 07/21/23 07/21/23 19:50 Unknown WBC 13.9 H RBC 4.36 Hgb 13.3 Hct 40.2 MCV 92.2 MCH 30.5 MCHC 33.1 RDW Std Deviation 44.3 H RDW Coeff of [place] 13.1 Plt Count 288 MPV 10.4 Immature Gran % (Auto) 0.400 Neut % (Auto) 81.1 H Lymph % (Auto) 11.3 L [place] % (Auto) 6.8 Eos % (Auto) 0.1 Baso % (Auto) 0.3 Absolute Neuts (auto) 11.2 H Absolute Lymphs (auto) 1.56 Nucleated RBC % 0 Sodium 133 L Potassium 3.3 L Chloride 98 Carbon Dioxide 29.0 Anion Gap 6 BUN 10 Creatinine 0.88 Estim Creat Clear Calc 62.81 Est GFR (MDRD) Af Amer 83 Est GFR (MDRD) Non-Af 69 BUN/Creatinine Ratio 11.3 Glucose 130 H Lactic Acid 1.1 Calcium 9.5 Total Bilirubin 1.10 H AST 13 L ALT 30 Alkaline Phosphatase 85 Total Protein 8.2 Albumin 4.0 Globulin 4.2 Albumin/Globulin Ratio 1.0 Urine Color Yellow Urine Clarity Clear Urine pH 6.0 Ur Specific [place] 1.010 Urine Protein 30 H Urine Glucose (UA) Normal Urine Ketones 15 H Urine Occult Blood 25 H Urine Nitrite Negative Urine Bilirubin Negative Urine Urobilinogen Normal Ur Leukocyte Esterase Negative Urine RBC 0-5 SEEN Urine WBC 0-5 SEEN Ur Squamous Epith Cells 0-5 SEEN Urine Bacteria 0 SEEN Urine Mucus 0 SEEN Radiography Diagnostic Testing: Clinical Impression(s) from Imaging Studies Abdomen/Pelvis CT 07/21/23 19:25 IMPRESSION: Diverticular disease of the descending and sigmoid colon in association with mild acute diverticulitis of the sigmoid colon but no evidence for peridiverticular abscess. Gallstones without definitive evidence for acute cholecystitis Electronically Signed: Mikey Moreau MD at 20:33 EST Reading Location ID and State: [address] [place] [address] Tel , Service support , Discharge Plan Triage Chief Complaint: Abd Pain ED Provider: Aby Jeff Dx/Rx/DC Orders Clinical Impression: Diverticulitis large intestine w/o perforation or abscess w/o bleeding Instructions: ED Diverticulitis Prescriptions: New metronidazole 500 mg tablet 500 mg PO Q8H 7 Days Qty: 21 0RF cefdinir 300 mg capsule 300 mg PO BID Qty: 14 0RF No Action sennosides [senna] 8.6 mg tablet 8.6 mg PO BID lisinopril-hydrochlorothiazide 20-25 mg tablet 1 tab PO DAILY ascorbic acid (vitamin C) 1,000 MG tablet 1,000 mg PO DAILY cephalexin 250 MG capsule 250 mg PO QHS aspirin 81 MG tablet,delayed release (DR/EC) 81 mg PO DAILY metoprolol tartrate 50 MG tablet 50 mg PO BID omeprazole 20 MG capsule 20 mg PO DAILY multivitamin with minerals 1 EACH tablet 1 ea PO DAILY calcium carbonate-vitamin D3 1 EACH tablet 1 ea PO DAILY cholecalciferol (vitamin D3) 1,000 UNIT tablet 1,000 unit PO BID Primary Care Provider: Jeffery Godinez Referrals: Jeffery Godinez MD [Primary Care Provider] - Activity Restrictions/Additional Instructions: You may take [id number] ibuprofen or Tylenol for pain. Continue taking your home meds except for your metformin for 48 hours because of the IV contrastyou received tonight. Drink plenty of fluids. Try to stick to a liquid diet until you are feeling better. If your symptoms worsen please return to the emergency room. Disposition Disposition: Home, Self Care What to do if you have Problems For any increased pain, shortness of breath, bleeding, nausea or vomiting, chestpain, or any unexpected problems, contact your Primary Care Provider. Call [facility] ([phone]) or report to the closest Emergency Room. Call 911 if necessary. 07/21/232131 <Electronically signed by Aby Jeff DO> Cosigner Signature (if applicable): CC: Dr. Jeffery Godinez MD ~ Signed [facility] Work Phone: Evaluation note Note Date & Type Note Facility Evaluation note No assessment information availa ble [facility] Work Phone: Hospital Discharge instructions Note Date & Type Note Facility Hospital Discharge instructions Additional Instructions You may take [id number] ibuprofen or Tylenol for pain. Continue taking your home meds except for your metformin for 48 hours because of the IV contrast you received tonight. Drink plenty of fluids. Try to stick to a liquid diet until you are feeling better. If your symptoms worsen please return to the emergency room. [facility] Work Phone: Reason for referral (narrative) Note Date & Type Note Facility Reason for referral (narrative) No reason for referral information available [facility] Work Phone: Summary Purpose Family History No Family History Records Found Relationship Condition Age at Onset Recorded Date/T pablo mother Hypertension Unknown Diabetes mellitus Unknown sister Hypertension Unknown Relationship Condition Age at Onset Recorded Date/T pablo mother Hypertension Unknown Diabetes mellitus Unknown sister Hypertension Unknown Polyp of colon 50 Advance Directives No Advanced Directives Records Found Advance Directive Response Recorded Date/ Time Living Will Yes April 05, 2019 9:48am Power of Director Of Medical Services Yes April 05 9:48am Advance Directive Response Recorded Date/ Time Living Will Yes April 05, 2019 10:48am Power of Director Of Medical Services Yes April 05 10:48am Advance Directive Response Recorded Date/ Time Name of Medical Power of Director Of Medical Services recalled July 21, 2023 6:08pm Living Will Yes July 21 6:08pm Power of Director Of Medical Services Yes July 21, 2023 6:08pm Chief Complaint and Reason for Visit Chief Complaint SCREENING Chief Complaint Nontoxic multinodula r goiter ABD PAIN Chief Complaint Admit Date FATIGUE November 19, 2024 6:4 2am Fatigue November 19, 2024 11: 55am Chief Complaint Admit Date SCREENING May 07, 2025 7: 26am Additional Source Comments INFORMATION SOURCE (unrecogn ized section and content) DATE CREATED AUTHOR 11/24/2018 [facility] DATE CREATED AUTHOR AUTHOR'S ORGANIZ ATION 05/17/2025 [facility] Care Teams (unrecognized sec tion and content) Team Status: Active Member Role Status Dates Dr. Jeffery Godinez MD Family Provider Active Dr. Jeffery Godinez MD Primary Care Provider Active Team Status: Inactive Member Role Status Dates Dr. Jeffery Godinez MD Primary Care Provider Active Dr. Franny Fontaine MD Attending Provider Active Team Status: Inactive Member Role Status Dates Dr. Jeffery Godinez MD Primary Care Provider, Attending Provider Active Team Status: Inactive Member Role Status Dates Dr. Jeffery Godinez MD Primary Care Provider Active Dr. Raiza Kong DO Attending Provider, Referrin g Provider Active Team Status: Inactive Member Role Status Dates Dr. Jeffery Godinez MD Primary Care Provi carmelita, Attending Provider, Referring Provider Active Team Status: Active Member Role Status Dates Dr. Jeffery Godinez MD Primary Care Provider Active Dr. Bruno Aaron MD Attending Provider Active Team Status: Inactive Member Role Status Dates Dr. Jeffery Godinez MD Primary Care Provider Active Dr. Aby Jeff DO Emergency Provider Active Team Status: Inactive Member Role Status Dates Dr. Jeffery Godinez MD Primary Care Provider Active Dr. Bruno Aaron MD Attending Provider Active Team Status: Inactive Member Role Status Dates Dr. Jeffery Godinez MD Primary Care Provider Active Dr. Aby Jeff DO Attending Provider, Emergency P rovider Active Team Status: Active Member Role Status Dates Dr. Jeffery Godinez MD Primary Care Provider Active Team Status: Inactive Member Role Status Dates Dr. Jeffery Godinez MD Primary Care Provider Active Start: October 31, 2024 End: October 31, 2024 Dr. Jeffery Godinez MD Attending Provider Active Start: October 31, 2024 End: October 31, 2024 Dr. Jeffery Godinez MD Referring Provider Active Start: October 31, 2024 End: October 31, 2024 Team Status: Inactive Member Role Status Dates Dr. Jeffery Godinez MD Primary Care Provider Active Start: November 19, 2024 End: November 19, 2024 Dr. Jeffery Godinez MD Attending Provider Active Start: November 19, 2024 End: November 19, 2024 Dr. Jeffery Godinez MD Referring Provider Active Start: November 19, 2024 End: November 19, 2024 Team Status: Active Member Role Status Dates Dr. Jeffery Godinez MD Primary Care Provider Active Start: November 19, 2024 Dr. Jeffery Godinez MD Referring Provider Active Start: November 19, 2024 Dr. Jeffery Godinez MD Other Provider Active Star t: November 19, 2024 Dr. Anais Kim MD Attending Provider Activ e Start: November 19, 2024 Team Status: Inactive Member Role Status Dates Dr. Jeffery Godinez MD Primary Care Provider Active Start: February 01, 2025 End: February 01, 2025 Dr. Jeffery Godinez MD Attending Provider Active Start: February 01, 2025 End: February 01, 2025 Dr. Jeffery Godinez MD Referring Provider Active Start: February 01, 2025 End: February 01, 2025 Team Status: Active Member Role/Relationship Status Dates Dr. Jeffery Godinez MD Primary Care Provider Active Team Status: Inactive Member Role/Relationship Status Dates Dr. Jeffery Godinez MD Primary Care Provider Active Start: February 01, 2025 End: February 01, 2025 Dr. Jeffery Godinez MD Attending Provider Active Start: February 01, 2025 End: February 01, 2025 Dr. Jeffery Godinez MD Referring Provider Active Start: February 01, 2025 End: February 01, 2025 Team Status: Inactive Member Role/Relationship Status Dates Dr. Jeffery Godinez MD Primary Care Provider Active Start: March 12, 2025 Dr. Franny Fontaine MD Attending Provider Active Start: March 12, 2025 Team Status: Inactive Member Role/Relationship Status Dates Dr. Jeffery Godinez MD Primary Care Provider Active Start: May 07, 2025 End: May 07, 2025 Coretta Garcia NP, CEREAL CHEMIST-C Attending Provider Active S tart: May 07, 2025 End: May 07, 2025 Coretta Garcia NP, CEREAL CHEMIST-C Referring Provider Active S tart: May 07, 2025 End: May 07, 2025 Goals (unrecognized section and content) Goals may be documented in a n alternate sectionGoals may be documented in an alternate sectionGoals may be documented in an alternate sectionGoals may be documented in an alternate sectionGoals may be documented in an alternate sectionGoals may be documented in an alternate sectionGoals may be documented in an alternate sectionGoals may be documented in an alternate sectionGoals may be documented in an alternate section FOR RECORDS PERTAINING TO PATIENTS WHO ARE OR HAVE BEEN ENROLLED IN A CHEMICAL DEPENDENCY/SUBSTANCEABUSE PROGRAM, SOME INFORMATION MAY BE OMITTED. This clinical summary was aggregated from multiple sources. Caution should be exercised in using it in the provision of clinical care. This summary normalizes information from multiple sources, and as a consequence, information in this document may materially change the coding, format and clinical context of patient data. In addition, data may be omitted in some cases. CLINICAL DECISIONS SHOULD BE BASED ON THE PRIMARY CLINICAL RECORDS. [facility] provides no warranty or guarantee of the accuracy or completeness of information in this document.
[2025-08-01 10:39] LABS: AST(SGOT) 21 U/L (<=31); Alanine Aminotransfer ALT/SGPT 16 U/L (<=34); Albumin, Serum 4.3 g/dL (3.4-4.8); Alkaline Phosphatase 84 U/L (35-104); Anion Gap 11 (5-15); BUN 12 mg/dL (4-19); BUN/Creat Ratio 16.4 RATIO (10-20); Calcium,Total 10.2 mg/dL (7.6-11.0); Carbon Dioxide 28.7 mmol/L (21.0-32.0); Chloride 99 mmol/L (98-108); Cholesterol 191 mg/dL (<=200); Globulin 2.7 g/dL (2.2-4.2); Glucose 101 mg/dL (70-99); Low Density Lipoprotein Calc. 111 mg/dL; Potassium 4.0 mmol/L (3.3-5.1); Triglycerides 54 mg/dL; Very Low Density Lipoprotein 11 mg/dL (5-40); cholesterol:hdl ratio screen 2.72
[2025-08-01 10:55] LABS: Creatinine, Urine (random) 50.10 mg/dL (28.00-217.00); Microalbumin,Random Urine < 12.0 mg/L (<20 mg/L)
== END | disposition home or self-care (01) ==
LOC: MTLAB 08:14
PROVIDERS: PCP Family Medicine; Referring Provider Family Medicine; Visit Provider Family Medicine
DX: I10 Essential (primary) hypertension (principal); E11.9 Type 2 diabetes mellitus without complications
CPT/HCPCS: 36415; 80053; 80061; 82043; 82570